=== PATIENT | male | born 2000 | race Caucasian/White ===

== ENCOUNTER 2024-01-03 05:00 | Inpatient (IN) | payer BC, SELFPAY ==
[2024-01-03] VITALS (21 sets, daily range): BP systolic 139–181; BP diastolic 89–123; BMI 31.9
--- NOTE | 2024-01-03 02:06 | ED.GENMED ---
History of Present Illness
<MAT Ortega - Last Filed: 01/03/24 04:50>
General
Chief Complaint: Seizure
Source: patient
Exam Limitations: none
Time Seen by Provider: 01/03/24 02:12
Nursing documentation reviewed up to this point in time: agreed with
Travel History
Have you had any contact with someone who has COVID-19?: No
Do you have any symptoms of coronavirus? Fever > 100 degrees, chills, cough, shortness of breath, sore throat, loss of taste or smell, muscle aches, or headache?: No
History of Present Illness
History of Present Illness:
This is a 23 year old male with history of alcohol abuse, GERD, and seizure presents to the ED with c/o unwitnessed seizure x7 hours. He states he was at work when he lost consciousness and woke up on the floor. He reports striking his head and
presents with a left forehead injury. He also has abrasions on b/l knees. He reports biting his tongue. He admits to mild nausea. Patient reports having his father pick him up from work to drive him home. He consumed a alcoholic beverage (vodka)
before going to bed. He reports his mother found him in bed actively seizing, which is when she called the ambulance. He reports current mild nausea and tremors. He admits drinking 1-2 alcoholic beverage twice weekly. He was seen in September for
similar symptoms and was diagnosed with alcohol withdrawal seizure. He does follow with neurology, who has not started him on seizure medications. The only medication he is currently taking is Labetalol and Vitamin D.
Past History
<MAT Ortega - Last Filed: 01/03/24 04:50>
Past History
ED Past Medical History: GERD, HTN and Seizures
ED Past Surgical History: Orthopedic
Social History
Tobacco: Non-smoker
Alcohol: Binge drinker
Drug: None
Personal: Single
Living: with family
Employment: Employed
Review of Systems
<ST JordanWV - Last Filed: 01/03/24 04:50>
Review of Systems
Allergies reviewed?: Yes
All Other Systems: Not applicable
Constitutional: Reports no symptoms
EENT: Reports no symptoms
Respiratory: Reports no symptoms
Cardiac: Reports no symptoms
ABD/GI: Reports nausea
: Reports no symptoms
Musculoskeletal: Reports no symptoms
Skin: Reports no symptoms
Neurological: Reports other (Tremors)
Endocrine: Reports no symptoms
Hematologic/Lymphatic: Reports no symptoms
Psychiatric: Reports no symptoms
Phy Exam
<ST JordanWV - Last Filed: 01/03/24 04:50>
General Physical Exam
General Presentation: well appearing and no apparent distress
General Skin: warm and dry
General Habitus: normal
General Mental: alert
General Hydration: appears well hydrated
ENT Exam
ENT Exam: EOMI, pharynx normal, neck supple and normocephalic
Eye Exam
Eye Exam: PERRL, cornea clear and conjunctiva normal
Cardiovascular Exam
Cardiovascular Exam: regular rate/rhythm, no edema, no murmur and normal peripheral pulses
Pulmonary Exam
Pulmonary Exam: lungs clear, no respiratory distress, no rales, no crackles, no rhonchi, no stridor, no wheezing and no cough
Gastrointestinal Exam
Gastrointestinal Exam: normal bowel sounds, non tender, soft, no organomegaly, no pulsatile mass and non distended
Neurological Exam
Neurological Exam: alert, oriented x3, no motor deficits, speech normal and other (Tremors)
Musculoskeletal Exam
Musculoskeletal Exam: full ROM and no edema
Skin Exam
Skin Exam: normal color, warm/dry, no rash, no petechia and other (Left forehead abrasion, b/l knee abrasions)
Psychiatric Exam
Psychiatric Exam: normal mood/affect
Scores
<MAT Ortega - Last Filed: 01/03/24 04:50>
Withdrawal Assessment of Alcohol
Withdrawal Assessment Completed?: Not applicable
Nausea and Vomiting: Mild nausea with no vomiting
Tactile Disturbances: None
Tremor: Severe, even with arms not extended
Auditory Disturbances: Not present
Paroxysmal Sweats: No sweat visible
Visual Disturbances: Not present
Anxiety: Mild anxiety
Headache, Fullness in Head: Not present
Agitation: Normal activity
Orientation and clouding of sensorium: Oriented and can do serial additions
Total CIWA Score: 9
Alcohol Withdrawal Medication Recommendation: Equal to MSAS Score 5-7. Lorazepam 1mg IV or PO NOW & re-assess q2hrs
<Thi Dimas DO - Last Filed: 01/03/24 04:20>
Withdrawal Assessment of Alcohol
Total CIWA Score: 9
Alcohol Withdrawal Medication Recommendation: Equal to MSAS Score 5-7. Lorazepam 1mg IV or PO NOW & re-assess q2hrs
Course
<MAT Ortega - Last Filed: 01/03/24 04:50>
Orders/Labs/Results
Orders:
Orders
01/03/24 01:57
Alcohol Urgent
Complete Blood Count/With Diff Urgent
Comprehensive Metabolic Panel Urgent
01/03/24 02:13
Add On- LAB Urgent
Tests Added?: ETOH
01/03/24 02:35
CT Head W/o Iv Contrast Urgent
Comment:
Reason For Exam: seizure, R forehead contusion
Lorazepam [Ativan] 1 mg IV NOW STA
01/03/24 03:00
0.9% Sodium Chloride 1000 ml [Nss] 1,000 ml Mvi, Adult [Multivitamin] 10 ml Thiamine Injection 100 mg IV 250 mls/hr
01/03/24 04:17
Urinalysis Reflex To Culture Urgent
0.9% Sodium Chloride [Nss (Preservative Free)] See Protocol IV PRN PRN
Lorazepam [Ativan] 1 mg IV Q1HPRN PRN
Lorazepam [Ativan] 1 mg PO Q2HPRN PRN
Lorazepam [Ativan] 2 mg IV Q1HPRN PRN
01/03/24 04:29
Admit/Transfer Patient As Directed
Co-Sign Provider:
Level of Care: Inpatient admission
Assign to:: IMU- Intermediate Care
Physician / Group: ellyn
Diagnosis: alcohol withdrawal seizure
Reason for Hospitalization: alcohol withdrawal seizure
Expected length of stay greater than two midnights?: Yes
ELOS- Estimated Length of Stay in days: 2
I certify the patient meets the requirements for IP care: Yes
01/03/24 04:30
Code Status As Directed
Resuscitation Status: Full Code
01/03/24 04:31
Magnesium Urgent
PTT Urgent
Phosphorus Urgent
Prothrombin Time Urgent
0.9% Sodium Chloride [Nss (Preservative Free)] See Protocol IV PRN PRN
FOLic ACID [Folvite] 1 mg 0.9% Sodium Chloride 50 ml [Nss] 50 ml IV DAILYPRN
Lorazepam [Ativan] 1 mg IV Q1HPRN PRN
Lorazepam [Ativan] 1 mg PO Q2HPRN PRN
Lorazepam [Ativan] 2 mg IV Q1HPRN PRN
01/03/24 04:32
Urine Drug Abuse Screen Routine
MSAS SCORE As Directed
MSAS Score 0-4: Repeat MSAS every 2 hours until 0-4 for three consecutive assessments, then every 4 hours x 48
hours.
MSAS Score 5-7: For MILD withdrawl symptoms. Repeat MSAS and RASS every 2 hours
MSAS Score 8-11: For MODERATE withdrawal symptoms. Repeat MSAS and RASS every 1 hour. Consider ICU or IMU
level of care.
MSAS Score > 11: For SEVERE withdrawal symptoms. Repeat MSAS and RASS every 1 hour. Notify provider, consider
ICU level of care.
MSAS Additional Instructions: If no improvement or no decrease in score from severe to moderate within 12
hours, consult psychiatry
MSAS Notify Provider: Notify provider if patient requires more than 10 mg of Lorazepam in eight hour period.
01/03/24 04:34
Potassium Chloride [KCl] 40 meq PO NOW STA
01/03/24 05:00
Flush (0.9% Sodium Chloride) [Flush (Nss)] See Dose Instructions IV PER PROTOCOL
Phenobarbital Sodium [Phenobarbital] 260 mg 0.9% Sodium Chloride 100 ml [Nss] 100 ml IV ONCE
01/03/24 08:00
FOLic ACID [Folvite] 1 mg PO DAILY
Thiamine Injection 200 mg IV Q12
01/03/24 16:00
Phenobarbital Sodium [Phenobarbital] 97.5 mg IV TID
01/05/24 16:00
Phenobarbital [Luminal] 64.8 mg PO TID
01/06/24 08:00
Thiamine HCl [Vitamin B1] 100 mg PO BID
01/06/24 11:00
DC Protocol for Telemetry ONCE
01/07/24 16:00
Phenobarbital [Luminal] 32.4 mg PO TID
Abnormal Lab Results
01/03/24
01:57
RBC 3.90 L 10^6/uL
(4.70-6.10)
Hct 36.6 L %
(39.0-52.0)
MCH 33.8 H pg
(27.0-31.0)
Absolute Lymphs (auto) 0.9 L 10^3/uL
(1.2-3.4)
Absolute Monos (auto) 1.1 H 10^3/uL
(0.1-0.6)
Lymphocytes % 12.1 L %
(20.5-51.1)
Monocytes % 14.7 H %
(1.7-9.3)
Sodium 134 L mmol/L
(135-145)
Potassium 3.0 L mmol/L
(3.5-5.1)
Carbon Dioxide 19 L mmol/L
(22-30)
BUN 6 L mg/dl
(9-20)
Glucose 126 H mg/dl
(70-99)
Total Bilirubin 2.1 H mg/dl
(0.2-1.3)
AST 334 H U/L
(17-59)
ALT 177 H U/L
(0-50)
Total Protein 6.0 L g/dl
(6.3-8.2)
01/03/24 01:57
01/03/24 01:57
Vital Signs
Initial and Last Documented VS:
Initial Vital Signs
BP
153/97
01/03/24 01:56
Last Documented Vital Signs
Temp Pulse Resp BP Pulse Ox
99.7 F 94 28 152/110 94
01/03/24 01:57 01/03/24 04:00 01/03/24 04:00 01/03/24 04:00 01/03/24 04:00
<Thi Dimas, DO - Last Filed: 01/03/24 04:20>
Orders/Labs/Results
Orders:
Orders
01/03/24 01:57
Alcohol Urgent
Complete Blood Count/With Diff Urgent
Comprehensive Metabolic Panel Urgent
01/03/24 02:13
Add On- LAB Urgent
Tests Added?: ETOH
01/03/24 02:35
CT Head W/o Iv Contrast Urgent
Comment:
Reason For Exam: seizure, R forehead contusion
Lorazepam [Ativan] 1 mg IV NOW STA
01/03/24 03:00
0.9% Sodium Chloride 1000 ml [Nss] 1,000 ml Mvi, Adult [Multivitamin] 10 ml Thiamine Injection 100 mg IV 250 mls/hr
01/03/24 04:17
Urinalysis Reflex To Culture Urgent
0.9% Sodium Chloride [Nss (Preservative Free)] See Protocol IV PRN PRN
Lorazepam [Ativan] 1 mg IV Q1HPRN PRN
Lorazepam [Ativan] 1 mg PO Q2HPRN PRN
Lorazepam [Ativan] 2 mg IV Q1HPRN PRN
01/03/24 04:29
Admit/Transfer Patient As Directed
Co-Sign Provider:
Level of Care: Inpatient admission
Assign to:: IMU- Intermediate Care
Physician / Group: elyln
Diagnosis: alcohol withdrawal seizure
Reason for Hospitalization: alcohol withdrawal seizure
Expected length of stay greater than two midnights?: Yes
ELOS- Estimated Length of Stay in days: 2
I certify the patient meets the requirements for IP care: Yes
01/03/24 04:30
Code Status As Directed
Resuscitation Status: Full Code
01/03/24 04:31
Magnesium Urgent
PTT Urgent
Phosphorus Urgent
Prothrombin Time Urgent
0.9% Sodium Chloride [Nss (Preservative Free)] See Protocol IV PRN PRN
FOLic ACID [Folvite] 1 mg 0.9% Sodium Chloride 50 ml [Nss] 50 ml IV DAILYPRN
Lorazepam [Ativan] 1 mg IV Q1HPRN PRN
Lorazepam [Ativan] 1 mg PO Q2HPRN PRN
Lorazepam [Ativan] 2 mg IV Q1HPRN PRN
01/03/24 04:32
Urine Drug Abuse Screen Routine
MSAS SCORE As Directed
MSAS Score 0-4: Repeat MSAS every 2 hours until 0-4 for three consecutive assessments, then every 4 hours x 48
hours.
MSAS Score 5-7: For MILD withdrawl symptoms. Repeat MSAS and RASS every 2 hours
MSAS Score 8-11: For MODERATE withdrawal symptoms. Repeat MSAS and RASS every 1 hour. Consider ICU or IMU
level of care.
MSAS Score > 11: For SEVERE withdrawal symptoms. Repeat MSAS and RASS every 1 hour. Notify provider, consider
ICU level of care.
MSAS Additional Instructions: If no improvement or no decrease in score from severe to moderate within 12
hours, consult psychiatry
MSAS Notify Provider: Notify provider if patient requires more than 10 mg of Lorazepam in eight hour period.
01/03/24 04:34
Potassium Chloride [KCl] 40 meq PO NOW STA
01/03/24 05:00
Flush (0.9% Sodium Chloride) [Flush (Nss)] See Dose Instructions IV PER PROTOCOL
Phenobarbital Sodium [Phenobarbital] 260 mg 0.9% Sodium Chloride 100 ml [Nss] 100 ml IV ONCE
01/03/24 08:00
FOLic ACID [Folvite] 1 mg PO DAILY
Thiamine Injection 200 mg IV Q12
01/03/24 16:00
Phenobarbital Sodium [Phenobarbital] 97.5 mg IV TID
01/05/24 16:00
Phenobarbital [Luminal] 64.8 mg PO TID
01/06/24 08:00
Thiamine HCl [Vitamin B1] 100 mg PO BID
01/06/24 11:00
DC Protocol for Telemetry ONCE
01/07/24 16:00
Phenobarbital [Luminal] 32.4 mg PO TID
Abnormal Lab Results
01/03/24
01:57
RBC 3.90 L 10^6/uL
(4.70-6.10)
Hct 36.6 L %
(39.0-52.0)
MCH 33.8 H pg
(27.0-31.0)
Absolute Lymphs (auto) 0.9 L 10^3/uL
(1.2-3.4)
Absolute Monos (auto) 1.1 H 10^3/uL
(0.1-0.6)
Lymphocytes % 12.1 L %
(20.5-51.1)
Monocytes % 14.7 H %
(1.7-9.3)
Sodium 134 L mmol/L
(135-145)
Potassium 3.0 L mmol/L
(3.5-5.1)
Carbon Dioxide 19 L mmol/L
(22-30)
BUN 6 L mg/dl
(9-20)
Glucose 126 H mg/dl
(70-99)
Total Bilirubin 2.1 H mg/dl
(0.2-1.3)
AST 334 H U/L
(17-59)
ALT 177 H U/L
(0-50)
Total Protein 6.0 L g/dl
(6.3-8.2)
01/03/24 01:57
01/03/24 01:57
Vital Signs
Initial and Last Documented VS:
Initial Vital Signs
BP
153/97
01/03/24 01:56
Last Documented Vital Signs
Temp Pulse Resp BP Pulse Ox
99.7 F 94 28 152/110 94
01/03/24 01:57 01/03/24 04:00 01/03/24 04:00 01/03/24 04:00 01/03/24 04:00
<MAT Ortega - Last Filed: 01/03/24 04:50>
MDM/Problems Addressed
Differential Diagnosis Includes:
Alcohol withdrawal seizure, vasovagal syncope, electrolyte disturbance, arrhythmia
Vasovagal syncope considered, however patient has a history of seizures. Electrolyte disturbance and arrhythmia considered, however less likely due to history of alcohol withdrawal seizure.
<Thi Dimas DO - Last Filed: 01/03/24 04:20>
*Radiology
Radiology exam reviewed: radiology read reviewed (CT of the head is unremarkable. No acute intracranial traumatic findings.)
*Pulse Oximetry
Patient hypoxic: no
*Liquor Tester Interpretation
Rate: normal
Interpretation: normal
Rhythm: sinus
*Critical Care Note
Total Time (30-74mins, 75-104mins- exclusive of procedures): Not Applicable
ED Attending Note
<MAT Ortega - Last Filed: 01/03/24 04:50>
-
Portions of this chart may have been created with voice recognition software.� Occasional wrong word or��sound alike� substitutions may have occurred due to the inherent limitations of voice recognition software.
<Thi Dimas DO - Last Filed: 01/03/24 04:20>
ED Attending Note
Patient seen and examined by attending physician: Yes
I performed the substantive portion of visit, reviewed & personally made and approve the management plan that is documented in note by myself or ROSA.: Yes
I performed a history and physical exam of patient and discussed management with resident, I reviewed resident's note and agree with documented findings and plan of care.: Yes
ED Attending Note:
This is a 23-year-old gentleman who has history of alcohol abuse, admits to sporadic binge drinking and more recently has been attempting to cut down. He has prior history of alcohol withdrawal seizures with previous hospitalizations here September
2023 as well as May 2023 for alcohol withdrawal seizures. On both occasions recommended to inpatient alcohol rehab which he declined.
He continues to work at [employer] and while at work yesterday he admits to probable unwitnessed seizure where he awoke on the floor and suffered a contusion to his right forehead as well as abrasions to bilateral anterior knees. He denies
incontinence of bowel nor bladder but admits to abrasion to his left lateral tongue. He was able to call his father and was driven home from work.
Tonight while sleeping his mom was alerted by the dog barking and upon further investigation apparently found the patient seizing in his bed versus postictal. She called 911.
Upon EMS arrival patient awake and alert, mildly tremulous but no seizure activity.
He admits to right forehead contusion but denies headache, no nausea nor vomiting. Currently thirsty.
He denies neck nor back pain.
He denies chest pain or coughing or shortness of breath, denies abdominal pain, no dizziness nor lightheadedness. He does admit to feeling mildly shaky.
He does admit to intermittent alcohol consumption and has been attempting to cut down. He denies drug use.
GENERAL: 23-year-old gentleman appears his stated age, awake and alert, mildly anxious but easily communicative.
EYE: pupils equal and reactive. anicteric. There is an abrasion and soft tissue contusion right forehead.
NECK: Supple, nontender, full range of motion without difficulty nor pain, no significant adenopathy.
ENT: posterior pharynx is clear, oral mucosa is moist. Superficial abrasion left lateral tongue. No bleeding. TM clear b/l, nares patent.
CARDIAC: Regular rate and rhythm. no murmur.
LUNGS: Clear breath sounds bilaterally, no acute respiratory distress, no wheezes/rales/rhonchi
ABDOMEN: Soft, nondistended, without focal tenderness, normoactive BS.
NEUROLOGICAL: Alert and oriented x3, no focal neuro deficits. Motor strength is 5/5 bilaterally. Gross sensation is intact. Mild intention tremor of upper extremities.
SKIN: Warm and dry, normal color, right forehead abrasion/contusion. There are very superficial abrasions noted bilateral anterior knees.
MUSCULOSKELETAL: No C/C/E. peripheral pulses are full and equal b/l. No palpable tenderness.
PSYCH: Normal and appropriate interaction.
History and exam quite concerning for alcohol withdrawal seizure.
Noted to be mildly anxious, mildly tremulous with CIWA score of 9. Will give an IV dose of Ativan now.
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
Due to forehead contusion/abrasion, concern for closed head injury, will check CT of the head.
Due to prior history of alcohol withdrawal seizures, concern for impending DTs, concern for recurrent seizure patient will require acute hospitalization for continued close monitoring and treatment of alcohol withdrawal.
Discharge Plan
Departure
Patient Disposition: Admit
Date of Disposition: 01/03/24
Time of Disposition: 04:03
Admit to: IMU
Admit to doctor: Helen
Presentation/result/management discussed w/ accepting MD/DO: Hospitalist
Condition: Serious
Discharge Problem:
Alcohol withdrawal seizure, Forehead contusion, ETOH abuse, bilateral knee contusions
Prescriptions:
No Action
zinc sulfate 50 mg zinc (220 mg) Tablet
50 mg PO DAILY
olmesartan [Benicar] 40 mg Tablet
40 mg PO DAILY
cholecalciferol (vitamin D3) [Vitamin D3] 25 mcg (1,000 unit) Tablet
25 mcg PO DAILY
magnesium oxide 400 mg magnesium Tablet
400 mg PO DAILY
folic acid 1 mg Tablet
1 mg PO DAILY Qty: 20 0RF
thiamine HCl (vitamin B1) 100 mg Tablet
100 mg PO BID Qty: 60 0RF
phenobarbital 32.4 mg Tablet
64.8 mg PO TID Qty: 6 0RF
phenobarbital 32.4 mg Tablet
32.4 mg PO TID Qty: 6 0RF
labetalol 200 mg tablet
200 mg PO Daily
Referrals:
Medardo Arreaga MD [Family Provider] -
Interventions
Interventions:
*Risk Screen - Suicide Last Done: 01/03/24 01:57
*General Assessment Last Done: 01/03/24 01:57
*Neglect/Abuse Screening Last Done: 01/03/24 01:57
ED- Fall Risk Assessment Last Done: 01/03/24 02:18
*ED COVID-19 Vaccine History Last Done: 01/03/24 01:57
ED- Cardiac Assessment Last Done: 01/03/24 02:18
ED- Neurological Assessment Last Done: 01/03/24 02:18
ED- Pulmonary Assessment Last Done: 01/03/24 02:18
Discharge Date and Time
Print Language: NAURUAN
[2024-01-03 02:08] LABS: % Basophils 0.8 % (0-2); % Immature Granulocytes 0.3 % (0-0.5); % Lymphocytes 12.1 % (20.5-51.1); % Monocytes 14.7 % (1.7-9.3); % Neutrophils 72.1 % (42.2-75.2); Absolute Basophils 0.1 10^3/uL (0-0.2); Absolute Lymphocytes 0.9 10^3/uL (1.2-3.4); Absolute Monocytes 1.1 10^3/uL (0.1-0.6); Absolute Neutrophils 5.1 10^3/uL (1.4-6.5); Hematocrit 36.6 % (39.0-52.0); Hemoglobin 13.2 g/dL (13.0-18.0); Mean Corp Hgb Conc. 36.1 g/dL (33.0-37.0); Mean Corpuscular Hgb 33.8 pg (27.0-31.0); Mean Corpuscular Volume 93.8 fL (80.0-94.0); Mean Platelet Volume 9.6 fL (7.4-10.4); Nucleated Red Blood Cells % 0 % (-); Platelet Count 183 10^3/uL (130-400); Red Cell Dist. Width 12.9 % (11.5-14.5); White Blood Cell Count 7.1 10^3/uL (4.8-10.8)
[2024-01-03 02:33] LABS: ALT (SGPT) 177 U/L (0-50); AST (SGOT) 334 U/L (17-59); Albumin 3.5 g/dl (3.5-5.0); Alcohol 38 mg/dl; Alkaline Phosphatase 115 U/L (38-126); Blood Urea Nitrogen 6 mg/dl (9-20); Calcium 8.6 mg/dl (8.4-10.2); Carbon Dioxide 19 mmol/L (22-30); Chloride 99 mmol/L (98-107); Estimated Creatinine Clearance > 125 ml/min; Glucose 126 mg/dl (70-99); Sodium 134 mmol/L (135-145); Total Bilirubin 2.1 mg/dl (0.2-1.3); eGFR > 60.00
[2024-01-03] MEDS: ATIVAN 1 MG IV ×6 (02:39→19:43)
[2024-01-03] MEDS: MULTIVITAMIN 1011 MG IV (03:41)
[2024-01-03] MEDS: MULTIVITAMIN 1011 ML IV (03:41)
--- NOTE | 2024-01-03 04:34 | HPS.HSE ---
Family Physician
-
Family Physician: Medardo Arreaga
Chief Complaint
-
seizure
History of Present Illness
23-year-old male past medical history of seizure disorder, hypertension, GERD, alcohol use disorder, presenting with a syncopal episode while he was walking outside while at work. Episode lasted a few seconds he was noticed to have fallen but no
seizure to be noted. He did hit his head and has left forehead injury and abrasions of bilateral knees. He did bite his tongue. He does have some nausea. His father picked him up from work to drive him home. He thinks he was very dehydrated at
work today.
At night he was noted to be acting weird in bed and his dog notified his mom who found him to be passed out for few seconds with tremors of the body.
Patient used to drink significant amount of alcohol but since he was admitted in September for alcohol withdrawal seizures he has cut down significantly. Specifically over the past month he has cut down a lot more and drinking 1-2 drinks 2-3 times
per week. His last drink was this afternoon after coming home from work. He drinks vodka tonic. He denies smoking or any other drugs.
Denies headache. Did have some numbness of lower extremities. Denies vertigo.
Medical History
Past Medical History
Past Medical History: Reports Other (seizure disorder, hypertension, GERD, alcohol use disorder,)
Past Surgical History: Reports None
Social History
Tobacco: Non-smoker
Alcohol: Occasional
Drug: None
Family History
Family History: Not pertinent
Allergies / Home Medications
Allergies reflects when Allergies were last updated in [facility].
Home Medications with original date entered in [facility]
Allergy/Medication List:
Allergies
Allergy/AdvReac Type Severity Reaction Status Date / Time
No Known Allergies Allergy Verified 01/03/24 01:55
Home Medications
cholecalciferol (vitamin D3) 25 mcg (1,000 unit) tablet (Vitamin D3) 25 mcg PO DAILY Supplement 09/19/23
magnesium oxide 400 mg PO DAILY Electrolyte Repletion 09/19/23
olmesartan 40 mg tablet (Benicar) 40 mg PO DAILY Blood Pressure 09/19/23
zinc sulfate 50 mg zinc (220 mg) tablet 50 mg PO DAILY Supplement 09/19/23
folic acid 1 mg tablet 1 mg PO DAILY #20 tabs 09/21/23
phenobarbital 32.4 mg tablet 32.4 mg PO TID #6 tabs 09/21/23
phenobarbital 32.4 mg tablet 64.8 mg (2 x 32.4 mg) PO TID #6 tabs 09/21/23
thiamine HCl (vitamin B1) 100 mg tablet 100 mg PO BID #60 tabs 09/21/23
labetalol 200 mg tablet 200 mg PO Daily 01/03/24
Review of Systems
-
History Source: Patient
A 12 point ROS was completed and negative except as noted: Yes
Constitutional: Reports No Symptoms
EENT: Reports No Symptoms
Respiratory: Reports No Symptoms
Cardiac: Reports No Symptoms
Abdomen/GI: Reports No Symptoms
: Reports No Symptoms
Musculoskeletal: Reports No Symptoms
Skin: Reports No Symptoms
Neurological: Reports No Symptoms
Endocrine: Reports No Symptoms
Hematologic/Lymphatic: Reports No Symptoms
Psych: Reports No Symptoms
Physical Exam
Vital Signs
Vital Signs
Temp Pulse Resp BP Pulse Ox
99.7 F 94 28 152/110 94
01/03/24 01:57 01/03/24 04:00 01/03/24 04:00 01/03/24 04:00 01/03/24 04:00
Physical Exam
General: Well Developed, Well Nourished and No Apparent Distress
HEENT: NormoCephalic, Moist mucous membranes and Atraumatic
Respiratory: Clear
Cardiac: S1/S2 and Regular Rhythm; No Murmur or Rub
GI: Soft, Non Tender, Non Distended and Normal Bowel Sounds; No Organomegaly
Rectal: Deferred by Provider
Musculoskeletal: No Clubbing, No Cyanosis and No Edema
Skin: No Rash
Neuro: Nonfocal/grossly intact and Tremors
Laboratory Results
-
01/03/24 01:57
01/03/24 01:57
Laboratory Results
Total Bilirubin 2.1 mg/dl (0.2-1.3) H 01/03/24 01:57
AST 334 U/L (17-59) H 01/03/24 01:57
ALT 177 U/L (0-50) H 01/03/24 01:57
Alkaline Phosphatase 115 U/L (38-126) 01/03/24 01:57
Data Reviewed
-
Lab Data: Labs Reviewed by me
Old Records: Reviewed
Impression/Plan
-
IMPRESSION:
PLAN:
# Alcohol withdrawal seizure
# History of alcohol withdrawal seizures
-CT head shows no acute abnormality
-Alcohol level 38
-Alcohol withdrawal protocol
-Phenobarbital protocol
-IV fluids
-Thiamine and folate
# Hypokalemia
-Replete potassium
-Check magnesium
# Transaminitis secondary to alcohol use
-Continue to monitor
Essential hypertension
-Continue labetalol, olmesartan
GERD
Full code
DVT prophylaxis�heparin
Regular diet
[2024-01-03 04:56] LABS: Magnesium 0.7 mg/dl (1.6-2.3); Phosphorus 2.1 mg/dl (2.5-4.5)
[2024-01-03 04:58] LABS: INR 1.24; PT 15.6 Sec (11.4-14.6)
[2024-01-03] MEDS: PHENOBARBITAL 104 MG IV (04:58)
[2024-01-03] MEDS: KCL 40 MEQ PO (05:06)
[2024-01-03] MEDS: NSS 1000 IV (06:19)
[2024-01-03] MEDS: MAGNESIUM SULFATE 50 IV (06:19)
[2024-01-03 06:39] LABS: % Basophils 0.5 % (0-2); % Eosinophils 2.6 % (0-6); % Immature Granulocytes 0.5 % (0-0.5); % Lymphocytes 11.8 % (20.5-51.1); % Monocytes 13.7 % (1.7-9.3); % Neutrophils 70.9 % (42.2-75.2); Absolute Eosinophils 0.2 10^3/uL (0-0.7); Absolute Lymphocytes 0.7 10^3/uL (1.2-3.4); Absolute Monocytes 0.8 10^3/uL (0.1-0.6); Hematocrit 38.2 % (39.0-52.0); Hemoglobin 13.7 g/dL (13.0-18.0); Mean Corp Hgb Conc. 35.9 g/dL (33.0-37.0); Mean Corpuscular Hgb 34.6 pg (27.0-31.0); Mean Corpuscular Volume 96.5 fL (80.0-94.0); Mean Platelet Volume 10.2 fL (7.4-10.4); Nucleated Red Blood Cells % 0 % (-); Platelet Count 155 10^3/uL (130-400); Red Blood Cell Count 3.96 10^6/uL (4.70-6.10); Red Cell Dist. Width 12.8 % (11.5-14.5); White Blood Cell Count 5.7 10^3/uL (4.8-10.8)
[2024-01-03 07:20] LABS: ALT (SGPT) 179 U/L (0-50); AST (SGOT) 311 U/L (17-59); Albumin 3.5 g/dl (3.5-5.0); Alkaline Phosphatase 119 U/L (38-126); Blood Urea Nitrogen 7 mg/dl (9-20); Calcium 8.8 mg/dl (8.4-10.2); Carbon Dioxide 27 mmol/L (22-30); Chloride 98 mmol/L (98-107); Estimated Creatinine Clearance > 125 ml/min; Glucose 98 mg/dl (70-99); Potassium 2.9 mmol/L (3.5-5.1); Sodium 133 mmol/L (135-145); Total Bilirubin 3.2 mg/dl (0.2-1.3); Total Protein 6.1 g/dl (6.3-8.2); eGFR > 60.00
[2024-01-03] MEDS: FOLVITE 1 MG PO (08:00)
[2024-01-03] MEDS: VITAMIN D3 (cholecalciferol) 25 MCG PO (08:00)
[2024-01-03] MEDS: MAGNESIUM OXIDE 500 MG PO (08:00)
[2024-01-03] MEDS: HEPARIN 5000 UNITS SC ×2 (08:01→19:44)
[2024-01-03] MEDS: THIAMINE INJECTION IV (08:01)
[2024-01-03] MEDS: BENICAR 40 MG PO (08:59)
[2024-01-03] MEDS: TRANDATE 200 MG PO (09:07)
--- NOTE | 2024-01-03 12:14 | W.PN.HOSP.TC ---
Today's Communication/Plan
-
See plan
Assessment / Plan
Assessment / Plan
Impression:
Alcohol withdrawal seizures.
Alcohol use disorder severe.
Alcohol withdrawal syndrome.
Severe hypokalemia
Hypomagnesemia
Abnormal LFTs suspect secondary to hepatic alcohol injury.
Essential hypertension.
GERD.
Plan
Alcohol withdrawal seizure
Severe alcohol use disorder with impending DT.
CT scan of the head shows no acute abnormalities
Alcohol level presentation 38
Continue seizure precautions.
Alcohol withdrawal protocol with lorazepam.
Phenobarbital.
Thiamine.
Neurology consultation
Hypokalemia
Hypomagnesemia
Continue IV fluids with potassium and magnesium supplements
Follow BMP
Abnormal LFTs secondary to hepatic alcohol injury.
Monitor.
Essential hypertension
Continue preadmission regimen with labetalol and olmesartan. Monitor blood pressure trend.
Anticipated Discharge: > 48 hours
Subjective/Interval History
-
Date of Service: January 03, 2024
Objective Data
-
Labs:
Laboratory Results
01/03/24 01/03/24 01/03/24
01:57 04:31 06:21
WBC 7.1 5.7
Hgb 13.2 13.7
Hct 36.6 L 38.2 L
Plt Count 183 155
PT 15.6 H
INR 1.24
APTT 26.0
Sodium 134 L 133 L
Potassium 3.0 L 2.9 L
Chloride 99 98
Carbon Dioxide 19 L 27
BUN 6 L 7 L
Creatinine 0.8 0.7
Glucose 126 H 98
Calcium 8.6 8.8
Total Bilirubin 2.1 H 3.2 H D
AST 334 H 311 H
ALT 177 H 179 H
Alkaline Phosphatase 115 119
Vital Signs:
Vital Signs
Temp Pulse Resp BP Pulse Ox
98.5 F 97 19 166/123 98
01/03/24 08:51 01/03/24 09:07 01/03/24 06:30 01/03/24 09:07 01/03/24 06:30
Physical Exam
-
General: Well Developed and No Apparent Distress
HEENT: Normocephalic, Atraumatic and Moist Mucous Membranes
Respiratory: Clear to Auscultation
Cardiac: Regular Rhythm and S1/S2; Negative Murmur, Rub or Gallop
GI: Soft, Nontender, Nondistended and Normal Bowel Sounds; Negative Organomegaly
Rectal: Deferred by Provider
Musculoskeletal: No Clubbing, No Cyanosis and No Edema
Skin: Negative Rash
Neuro: Awake, Alert, Oriented, Tremors and Nonfocal/Grossly Intact
[2024-01-03] MEDS: KCL 1024 GRAMS IV (12:24)
[2024-01-03] MEDS: KCL 1024 MEQ IV (12:24)
--- NOTE | 2024-01-03 13:02 | CON.NEURO4 ---
Consultation - Neurology 4
-
CONSULTING PHYSICIAN: Ainsley Manzano
REFERRING PHYSICIAN: Hospitalist Dr Segal
DICTATED BY: Ainsley Manzano
DATE/TIME OF REQUEST: 01/03/24
DATE/TIME OF CONSULTATION: 01/03/24
Reason for Consultation: Seizure, alcohol withdrawal, history of seizures
History of Present Illness:
Patient is a 23 year old man with history of alcohol use disorder, alcohol withdrawal seizures who had had loss of consciousness episode yesterday while at work and was also found to have convulsions by his mother concerning for seizure activity.
Since then has developed tremor and some diaphoresis and has been being treated for alcohol withdrawal with PRN lorazepam, phenobarbital taper, IV thiamine and folate.
Patient can remember having had a loss of consciousness episode while at work while walking outside that seemed to be short lasting, seemed to bite his tongue and had right forehead abrasion and abrasions of legs bilaterally. He had just started a
new job. No other large stressors or recent illnesses. He returned home and had some confusion and odd behaviors, his mother had found him in bed with unconsciousness and less than 1 minute of convulsive activity.
Had had hospitalization in May 2023 with what was felt to be syncope versus alcohol withdrawal seizure, was given Levetiracetam but stopped due to agitation that was suspected in part due to Levetiracetam. EEG at that time showed excess beta
activity due to benzodiazepines. Had an admission in September 2023 after some seizure activity while at work and was treated for alcohol withdrawal during that stay, no chronic antiseizure medications started.
Past Medical History: Alcohol withdrawal seizures, alcohol use disorder, hypertension, GERD, obesity
Surgical History: None
Family History: No family history of seizures
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
sometimes up to a 5th of vodka
Allergies: No known drug allergies
Review of Symptoms:
Patient denies any fever, headache, chest pain, shortness of breath, GI or symptoms.
Physical Exam:
Young man, right forehead abrasion, eyes clear, oropharynx with no clear lacerations or bleeding, neck with no masses full range of motion of the neck, heart rate regular, breathing unlabored, abdomen obese, soft, non-tender, no lower extremity edema
Neurologic Examination:
Mental Status shows fully awake and alert patient, full orientation, normal attention, obeys complex and multistep commands, speech is fluent, naming and repetition intact, praxis normal, insight is fair, good historian
CN: Pupils 4mm equal round and reactive to light bilaterally, resting gaze mildline and extra ocular movements are full, visual marina full, smile symmetric, no dysarthria
Motor: Resting and postural tremor evident in the hands bilaterally, strength is 5/5 for shoulder abduction arm flexion ostomy care nurse strength is good and hip flexion 5/5 bilaterally
Sensory: Intact light touch upper and lower extremities in symmetric manner
Reflexes: 2+ symmetric biceps triceps brachioradialis patella and achilles
Coordination: No ataxia on finger to nose bilaterally
Gait: Deferred
Impressions
1. Likely 1-2 alcohol withdrawal seizures. Do not feel the patient has epilepsy
2. Presumed alcohol withdrawal with tremor, diaphoresis, elevated LFT's
3. Right forehead abrasion. Reassuring CT head non contrast.
4. Reassuring mental status currently
Recommendations:
1. With good mental status currently and high suspicion of alcohol withdrawal seizures not seeing indication for EEG or meterman antiseizure medications
2. Continue Phenobarbital and PRN Lorazepam for alcohol withdrawal symptoms
3. Continue IV thiamine and folate
4. Monitor neurologic exam and clinically for seizures which would be treated with IV Lorazepam
5. No indications for further brain imaging at this time
6. Follow electrolytes
Will follow peripherally call with questions and concerns
Discussed patient care with: Patient and Dr Segal
[2024-01-03] MEDS: PHENOBARBITAL 97.5 MG IV ×2 (15:09→21:44)
[2024-01-03] MEDS: ATIVAN 2 MG IV ×2 (15:11→17:55)
[2024-01-03 15:40] LABS: Urine Albumin Trace (Neg - Trace); Urine Bilirubin Negative (Negative); Urine Character Clear (Clear); Urine Color Yellow; Urine Glucose Negative (Negative); Urine Ketone Negative (Negative); Urine Leukocyte Negative (Negative); Urine Nitrite Negative (Negative); Urine Occult Blood 1+ (Negative); Urine Urobilinogen 2+ (Neg - 1+)
[2024-01-03 15:53] LABS: Urine Squamous Cell 0-2 /LPF (Few); Urine White Cell None Seen /HPF (0-5)
[2024-01-03 16:27] LABS: Amphetamines Negative (Negative); Barbiturates Positive (Negative); Benzodiazepines Positive (Negative); Buprenorphine Negative (Negative); Cocaine Negative (Negative); Marijuana Negative (Negative); Methadone Negative (Negative); Methamphetamines Negative (Negative); Opiates Negative (Negative); Phencyclidine Negative (Negative); Tricyclic Antidepressants Negative (Negative)
[2024-01-03 16:37] LABS: Fentanyl, Urine Negative (Negative)
--- NOTE | 2024-01-03 18:01 | PTCARENOTE ---
Patient continues with MSAS of 8 and above, Ativan PRN given. Patient BP elevated 150's over 100's. MD Segal made aware no new orders at this time other than continue to 'observe'. Patient denies any CP/PALP at this time.
[2024-01-03 18:55] LABS: Blood Urea Nitrogen 5 mg/dl (9-20); Calcium 7.9 mg/dl (8.4-10.2); Carbon Dioxide 27 mmol/L (22-30); Chloride 99 mmol/L (98-107); Estimated Creatinine Clearance > 125 ml/min; Glucose 111 mg/dl (70-99); Potassium 2.8 mmol/L (3.5-5.1); Sodium 132 mmol/L (135-145); eGFR > 60.00
[2024-01-03] MEDS: THIAMINE INJECTION 200 MG IV (19:43)
[2024-01-03] MEDS: NSS (PRESERVATIVE FREE) 0.5 ML IV (19:43)
[2024-01-04] VITALS (13 sets, daily range): BP systolic 129–164; BP diastolic 90–128
--- NOTE | 2024-01-04 | PTCARENOTE ---
Pt MSAS 8 at change of shift. 1 mg Ativan IV given per protocol (see MAR). Pt denies any hallucinations. Tremulous and slightly diaphoretic. ST on the monitor. Very cooperative. Resting in bed with call ambriz in reach.
[2024-01-04] MEDS: KCL 1024 MEQ IV (01:11)
[2024-01-04] MEDS: KCL 1024 GRAMS IV (01:11)
[2024-01-04 04:36] LABS: % Basophils 1.2 % (0-2); % Eosinophils 1.2 % (0-6); % Immature Granulocytes 0.3 % (0-0.5); % Lymphocytes 26.1 % (20.5-51.1); % Monocytes 13.9 % (1.7-9.3); % Neutrophils 57.3 % (42.2-75.2); Absolute Lymphocytes 0.9 10^3/uL (1.2-3.4); Absolute Monocytes 0.5 10^3/uL (0.1-0.6); Absolute Neutrophils 1.9 10^3/uL (1.4-6.5); Hematocrit 37.7 % (39.0-52.0); Hemoglobin 12.9 g/dL (13.0-18.0); Mean Corp Hgb Conc. 34.2 g/dL (33.0-37.0); Mean Corpuscular Hgb 33.9 pg (27.0-31.0); Mean Platelet Volume 10.1 fL (7.4-10.4); Nucleated Red Blood Cells % 0 % (-); Platelet Count 136 10^3/uL (130-400); Red Blood Cell Count 3.81 10^6/uL (4.70-6.10); Red Cell Dist. Width 12.4 % (11.5-14.5); White Blood Cell Count 3.4 10^3/uL (4.8-10.8)
[2024-01-04 05:54] LABS: ALT (SGPT) 147 U/L (0-50); AST (SGOT) 207 U/L (17-59); Albumin 3.3 g/dl (3.5-5.0); Alkaline Phosphatase 113 U/L (38-126); Blood Urea Nitrogen 3 mg/dl (9-20); Calcium 7.8 mg/dl (8.4-10.2); Carbon Dioxide 28 mmol/L (22-30); Chloride 101 mmol/L (98-107); Direct Bilirubin 2.5 mg/dl (0.0-0.4); Estimated Creatinine Clearance > 125 ml/min; Glucose 100 mg/dl (70-99); Magnesium 1.7 mg/dl (1.6-2.3); Potassium 3.7 mmol/L (3.5-5.1); Sodium 132 mmol/L (135-145); Total Bilirubin 3.7 mg/dl (0.2-1.3); Total Protein 5.8 g/dl (6.3-8.2); eGFR > 60.00
[2024-01-04] MEDS: BENICAR 40 MG PO (07:59)
[2024-01-04] MEDS: MAGNESIUM OXIDE 500 MG PO (08:00)
[2024-01-04] MEDS: PHENOBARBITAL 97.5 MG IV ×3 (08:00→22:21)
[2024-01-04] MEDS: TRANDATE 200 MG PO (08:00)
[2024-01-04] MEDS: VITAMIN D3 (cholecalciferol) 25 MCG PO (08:00)
[2024-01-04] MEDS: FOLVITE 1 MG PO (08:00)
[2024-01-04] MEDS: HEPARIN 5000 UNITS SC (08:02)
[2024-01-04] MEDS: THIAMINE INJECTION 200 MG IV ×2 (08:04→19:50)
[2024-01-04] MEDS: KCL IV ×2 (10:07)
[2024-01-04] MEDS: KCL 1012 GRAMS IV ×2 (10:46→19:58)
[2024-01-04] MEDS: KCL 1012 MEQ IV ×2 (10:46→19:58)
--- NOTE | 2024-01-04 14:29 | CM ---
Addendum entered by Rosi Casas RN 01/04/24 16:05:
Spoke with DIANE Ge; he met with the patient and recommended Inpatient Etoh Rehab however patient does not want to do an inpatient program as he just got promoted to a new job. He agreed to the [facility] outpatient program that includes individual
therapy. Joo also discussed AA meetings and considering the Vivitrol injection.
Plan home with [facility] outpatient Etoh rehab.
Original Note:
Patient with Dx Alcohol withdrawal seizures, Alcohol use disorder severe, Alcohol withdrawal syndrome. Tox screen noted. MSAS. PT Screen; No skilled PT needed.
Met with patient and his mother ;
the patient resides with his mother in a 2 story house.
He has been independent in ADLs and ambulation.
The patient volunteers that he recently started working in a new job.
The patient has no DME.
PCP - Medardo Arreaga
Pharmacy - [facility] [address]
Offered DIANE for Etoh resources/programs and patient agrees.
Patient states he has been drinking for pain control due to chronic hip pain after multiple ortho surgeries since childhood, that radiates down his leg and up to his shoulder/neck and not wanting to take pain meds. Mother wondering if patient needs
to talk to someone for counseling related to this.
Plan follow up after seen by DIANE.
--- NOTE | 2024-01-04 14:46 | W.PN.HOSP.TC ---
Today's Communication/Plan
-
Withdrawal symptoms improved with phenobarbital.
Continue taper.
Continue IV fluids reassess neuro intake and follow electrolytes.
BCARES evaluation pending
In my opinion patient needs inpatient alcohol rehab, although with limited insight declines at this point.
Assessment / Plan
Assessment / Plan
Impression:
Alcohol withdrawal seizures.
Alcohol use disorder severe.
Alcohol withdrawal syndrome.
Severe hypokalemia
Hypomagnesemia
Abnormal LFTs suspect secondary to hepatic alcohol injury.
Essential hypertension.
GERD.
Plan
Alcohol withdrawal seizure
Severe alcohol use disorder with impending DT.
CT scan of the head shows no acute abnormalities
Alcohol level presentation 38
Continue seizure precautions.
Alcohol withdrawal protocol with lorazepam.
Phenobarbital.
Thiamine.
Neurology consultation with no indication for antiepileptic medications.
Hypokalemia
Hypomagnesemia
Continue IV fluids with potassium and magnesium supplements
Follow BMP
Abnormal LFTs secondary to hepatic alcohol injury.
Monitor.
Essential hypertension
Continue preadmission regimen with labetalol and olmesartan. Monitor blood pressure trend.
Anticipated Discharge: 24 - 48 hours
Subjective/Interval History
-
Date of Service: January 04, 2024
Objective Data
-
Labs:
Laboratory Results
01/04/24
04:27
WBC 3.4 L
Hgb 12.9 L
Hct 37.7 L
Plt Count 136
Sodium 132 L
Potassium 3.7 D
Chloride 101
Carbon Dioxide 28
BUN 3 L
Creatinine 0.7
Glucose 100 H
Calcium 7.8 L
Total Bilirubin 3.7 H
AST 207 H
ALT 147 H
Alkaline Phosphatase 113
Vital Signs:
Vital Signs
Temp Pulse Resp BP Pulse Ox
97.9 F 93 31 147/111 94
01/04/24 11:56 01/04/24 10:08 01/04/24 08:00 01/04/24 10:08 01/04/24 00:00
I&O
01/03/24 01/04/24 01/05/24
06:59 06:59 06:59
Intake Total 1200 / 1200 960 / 960
Output Total 3175 / 3175 800 / 800
Balance -1974 / -1974 160 / 160
Physical Exam
-
General: Well Developed and No Apparent Distress
HEENT: Normocephalic, Atraumatic and Moist Mucous Membranes
Respiratory: Clear to Auscultation
Cardiac: Regular Rhythm and S1/S2; Negative Murmur, Rub or Gallop
GI: Soft, Nontender, Nondistended and Normal Bowel Sounds; Negative Organomegaly
Rectal: Deferred by Provider
Musculoskeletal: No Clubbing, No Cyanosis and No Edema
Skin: Negative Rash
Neuro: Awake, Alert, Oriented and Nonfocal/Grossly Intact
--- NOTE | 2024-01-04 15:50 | PN.CDI ---
CDI
- -
CDI:
Physician Documentation Request
Admit Date: 01/03/24 05:00
Dear Doctor Luzma,
Patient admitted for alcohol withdrawal
Laboratory Tests
01/03/24 01/03/24 01/03/24 01/04/24
01:57 06:21 18:30 04:27
Sodium 134 L 133 L 132 L 132 L
Based on the above, could you clarify in the progress notes, the appropriate diagnosis, if significant, that supports the above abnormalities and additional evaluation, monitoring and/or treatment rendered:
Hyponatremia
Abnormal lab value insignificant
Other
Use of terms such as suspected, likely, concern for, or probable (associated with a specific diagnosis that is being evaluated, monitored, or treated as if it exists) are acceptable and can be coded in the inpatient setting, when documented at the
time of discharge.
Thank you,
Catalina Otero RN, BSN
CDI Specialist
Available via [place] text
Please use your independent medical judgment in providing your response.
[2024-01-04] MEDS: HEPARIN SC (19:50)
[2024-01-04] MEDS: FLUSH (NSS) 2 FLUSH IV ×2 (19:51→22:22)
[2024-01-04] MEDS: ATIVAN 1 MG PO (23:10)
--- NOTE | 2024-01-04 23:17 | PTCARENOTE ---
Patient with increased restlessness. MSAS 6. Ativan per protocol.
[2024-01-05] VITALS (11 sets, daily range): BP systolic 129–168; BP diastolic 83–131
[2024-01-05 05:17] LABS: % Eosinophils 1.4 % (0-6); % Lymphocytes 27.3 % (20.5-51.1); % Monocytes 13.8 % (1.7-9.3); % Neutrophils 56.5 % (42.2-75.2); Absolute Lymphocytes 0.8 10^3/uL (1.2-3.4); Absolute Monocytes 0.4 10^3/uL (0.1-0.6); Absolute Neutrophils 1.6 10^3/uL (1.4-6.5); Hematocrit 32.7 % (39.0-52.0); Hemoglobin 11.2 g/dL (13.0-18.0); Mean Corp Hgb Conc. 34.3 g/dL (33.0-37.0); Mean Corpuscular Hgb 34.3 pg (27.0-31.0); Nucleated Red Blood Cells % 0 % (-); Platelet Count 130 10^3/uL (130-400); Red Blood Cell Count 3.27 10^6/uL (4.70-6.10); Red Cell Dist. Width 12.3 % (11.5-14.5); White Blood Cell Count 2.9 10^3/uL (4.8-10.8)
--- NOTE | 2024-01-05 05:21 | PTCARENOTE ---
Patient sleeping intermittently. MSAS 3. NSR on tele.
[2024-01-05] MEDS: KCL 1012 MEQ IV (05:35)
[2024-01-05] MEDS: KCL 1012 GRAMS IV (05:35)
[2024-01-05 07:16] LABS: ALT (SGPT) 130 U/L (0-50); AST (SGOT) 192 U/L (17-59); Albumin 3.7 g/dl (3.5-5.0); Alkaline Phosphatase 129 U/L (38-126); Blood Urea Nitrogen 3 mg/dl (9-20); Calcium 9.5 mg/dl (8.4-10.2); Carbon Dioxide 25 mmol/L (22-30); Chloride 102 mmol/L (98-107); Estimated Creatinine Clearance > 125 ml/min; Glucose 92 mg/dl (70-99); Potassium 4.7 mmol/L (3.5-5.1); Sodium 132 mmol/L (135-145); Total Bilirubin 4.2 mg/dl (0.2-1.3); Total Protein 6.5 g/dl (6.3-8.2); eGFR > 60.00
[2024-01-05] MEDS: THIAMINE INJECTION 200 MG IV ×2 (08:18→20:51)
[2024-01-05] MEDS: VITAMIN D3 (cholecalciferol) 25 MCG PO (08:18)
[2024-01-05] MEDS: BENICAR 40 MG PO (08:18)
[2024-01-05] MEDS: HEPARIN SC ×3 (08:18→20:52)
[2024-01-05] MEDS: FOLVITE 1 MG PO (08:19)
[2024-01-05] MEDS: TRANDATE 200 MG PO (08:19)
[2024-01-05] MEDS: PHENOBARBITAL 97.5 MG IV (08:29)
[2024-01-05] MEDS: MAGNESIUM OXIDE 500 MG PO (10:27)
--- NOTE | 2024-01-05 10:40 | PTCARENOTE ---
Assumed care of pt after morning rounds. Pt is irritable and threatens to leave AMA. Pt encouraged to stay for ongoing medical treatment and safety. He is oriented x 3 and in conversation. Heart rate is sinus tach on monitor. Pt refuses to be
attached to Hard wire IMU monitoring butis agreeable to telemetry pack. Pt ambulates with steady gait at this time but asking many questions about why he cannot be discharged. This RN did notify attending physician of pt's potential AMA.
Maci will be rounding on this pt. Pt ate breakfast and then fell into a sound restful sleep with easy resp. and reg on room air with sinus tachycardia in low 100s while asleep
--- NOTE | 2024-01-05 14:35 | CON.MD ---
Consultation - Medical
-
patient seen chart reviewed. spoke with nursing parents at bedside. consult ordered as patient was threatening to leave ama. he is here bc of a sz in the context of etoh withdrawal. the patient is well known to me from consultation in september
which was a similar scenario w him having suffered a sz in the throes of etoh wd. he left here without seeking any type of rehab at that time. he stayed sober for about two weeks then resumed his intake of etoh. when i saw him today he had
already decided to stay at to continue wd with ativan and phenobarbital. he says he is drinking less on the order of one or twice drinks twice weekly. he last drank the day before he was admitted. he is not depressed. he just got a new
assignment at [employer]. he likes working there. says sleep and appetite are okay. he has never been suicidal. he feels energy is normal for him. he can enjoy himself. one barrier to sobriety is that there is alcohol in the home as both of his
parents do partake of etoh.
past psych hx denied
medical hx hypertension hx etoh withdrawal sx. gerd overweight elevated lft's urobilinogen in urine also hematuria qtc is nl. seen by neuro who feel this is etoh wd sz patient needed 8 mg ativan yesterday only one so far today. currently
phenobarb msas/ativan rx for withdrawal
family hx denied on prior admit
social lives w hermann works for [employer]. denies trauma not m no kids has + friendships
mse alert ox3 cooperative pleasant. .speech and thought process nl mood is euthymic affect ok no si no hi aver intelligence insight judgment fair
dx etoh use d.o etoh wdrawal
recommend continue w msas and phenobarb taper. patient is expressing willingness to remain and participate in etoh rehab as an out pt. should he decide to leave [facility]a which obviously is not in his best interest i do see him as competent to make
that decision. i explained to him the risks of doing so and he does understand them. as stated he is now saying he is willing to remain. ativan prn anxiety for today . will reassess tomorrow.
[2024-01-05] MEDS: ATIVAN 1 MG PO ×2 (15:01→21:56)
--- NOTE | 2024-01-05 16:07 | PTCARENOTE ---
patient awoke from nap in good spirits but then approx 1300 the pt became more restless, angry wanting to leave AMA. Parents arrived and pt arguing with parents who want him to remain hospitalized for ETOH withdrawal and seizure prevention. Pt is
not agreeable and has poor insight into seriousness of withdrawal/seizures. Multiple attempts by nursing and Dr. Lux to educate on the seriousness are unsuccessful. Pt does not recognize the risks of trying to manage independently. Pt denies
need for help with ETOH now or as an outpatient. Pt was refusing any Ativan this am. He was evaluated by Psychiatry and is then agreeable to stay. Pt given p.o. Ativan and appears calmer and less tense at this time. Parents remain at bedside and all
are calm conversation ongoing at this time
[2024-01-05] MEDS: LUMINAL 64.7999999999999972 MG PO ×2 (16:33→20:52)
[2024-01-05] MEDS: KCL IV ×2 (17:11)
--- NOTE | 2024-01-05 18:09 | W.PN.HOSP.TC ---
Today's Communication/Plan
-
Continue Phenobarb taper
MSAS protocol
Continue Thiamine and Folic Acid
Monitor labs, electrolytes as below
Patient is now willing to stay -- appreciate psychiatry assistance
Assessment / Plan
Assessment / Plan
Impression:
Alcohol withdrawal seizures.
Alcohol use disorder severe.
Alcohol withdrawal syndrome.
Severe hypokalemia
Hypomagnesemia
Abnormal LFTs suspect secondary to hepatic alcohol injury.
Essential hypertension.
GERD.
Plan
Alcohol withdrawal seizure
Severe alcohol use disorder with impending DT.
CT scan of the head shows no acute abnormalities
Alcohol level presentation 38
Continue seizure precautions.
Alcohol withdrawal protocol with lorazepam.
Continue Phenobarbital tapering regimen.
Continue Thiamine.
Continue Folic Acid.
Neurology consultation with no indication for antiepileptic medications.
Attempts at Leaving AMA
Patient now okay with staying
Psychiatry saw patient on 01/05/24, appreciate recommendations: should patient decide to leave AMA, he is competent to make that decision, hospitalist and psychiatry explained to him the risks of doing so and he does understand them.
Hypokalemia
Hypomagnesemia
Status post IV fluids with potassium and magnesium supplements -- and now potassium and magnesium are normal
Follow CMP, Magnesium
Abnormal LFTs secondary to hepatic alcohol injury.
Monitor via CMP.
Essential hypertension
Blood pressure stable.
Continue preadmission regimen with labetalol and olmesartan. Monitor blood pressure trend.
Anticipated Discharge: > 48 hours
Subjective/Interval History
-
Date of Service: January 05, 2024
Patient was seen and examined. He was insistent that he wanted to leave, but later on in the day, he was okay with staying. He denied any new symptoms.
Objective Data
-
Labs:
Laboratory Results
01/05/24
06:37
Sodium 132 L
Potassium 4.7 D
Chloride 102
Carbon Dioxide 25
BUN 3 L
Creatinine 0.7
Glucose 92
Calcium 9.5 D
Total Bilirubin 4.2 H
AST 192 H
ALT 130 H
Alkaline Phosphatase 129 H
Vital Signs:
Vital Signs
Temp Pulse Resp BP Pulse Ox
97.7 F 86 20 149/106 99
01/05/24 15:31 01/05/24 12:06 01/05/24 10:26 01/05/24 12:06 01/05/24 10:26
I&O
01/04/24 01/05/24 01/06/24
06:59 06:59 06:59
Intake Total 1200 / 1200 3060 / 3060 2720 / 2720
Output Total 3175 / 3175 800 / 800
Balance -1974 / -1974 2260 / 2260 2720 / 2720
Physical Exam
-
General: No Apparent Distress
HEENT: Normocephalic and Moist Mucous Membranes
Respiratory: Clear to Auscultation
Cardiac: Regular Rhythm and S1/S2
GI: Soft, Nontender and Normal Bowel Sounds
Musculoskeletal: No Cyanosis and No Edema
Skin: Warm and Dry
Neuro: Awake, Alert and AO x 3
Psych: Calm
--- NOTE | 2024-01-05 21:59 | PTCARENOTE ---
Pt AAOx3, with increased MSAS score of 5. Agreeable to take PRN 1mg ativan. Pt expresses anxiety and eagerness to get out of the hospital. Comfort and support provided.
[2024-01-06] VITALS (9 sets, daily range): BP systolic 134–170; BP diastolic 89–130; BMI 32.1
[2024-01-06 04:51] LABS: % Basophils 0.8 % (0-2); % Eosinophils 1.1 % (0-6); % Immature Granulocytes 0.5 % (0-0.5); % Lymphocytes 25.9 % (20.5-51.1); % Neutrophils 53.7 % (42.2-75.2); Absolute Monocytes 0.7 10^3/uL (0.1-0.6); Hematocrit 37.1 % (39.0-52.0); Hemoglobin 12.7 g/dL (13.0-18.0); Mean Corp Hgb Conc. 34.2 g/dL (33.0-37.0); Mean Corpuscular Hgb 34.4 pg (27.0-31.0); Mean Corpuscular Volume 100.5 fL (80.0-94.0); Mean Platelet Volume 10.7 fL (7.4-10.4); Nucleated Red Blood Cells % 0 % (-); Platelet Count 148 10^3/uL (130-400); Red Blood Cell Count 3.69 10^6/uL (4.70-6.10); White Blood Cell Count 3.7 10^3/uL (4.8-10.8)
[2024-01-06 05:15] LABS: ALT (SGPT) 112 U/L (0-50); AST (SGOT) 128 U/L (17-59); Albumin 3.2 g/dl (3.5-5.0); Alkaline Phosphatase 114 U/L (38-126); Blood Urea Nitrogen 5 mg/dl (9-20); Calcium 9.2 mg/dl (8.4-10.2); Carbon Dioxide 26 mmol/L (22-30); Chloride 104 mmol/L (98-107); Estimated Creatinine Clearance > 125 ml/min; Glucose 97 mg/dl (70-99); Magnesium 1.4 mg/dl (1.6-2.3); Potassium 4.7 mmol/L (3.5-5.1); Sodium 134 mmol/L (135-145); Total Bilirubin 2.7 mg/dl (0.2-1.3); Total Protein 5.7 g/dl (6.3-8.2); eGFR > 60.00
[2024-01-06] MEDS: VITAMIN B1 100 MG PO ×2 (08:08→19:28)
[2024-01-06] MEDS: VITAMIN D3 (cholecalciferol) 25 MCG PO (08:08)
[2024-01-06] MEDS: FOLVITE 1 MG PO (08:08)
[2024-01-06] MEDS: TRANDATE 200 MG PO (08:08)
[2024-01-06] MEDS: MAGNESIUM OXIDE 500 MG PO (08:09)
[2024-01-06] MEDS: BENICAR 40 MG PO (08:09)
[2024-01-06] MEDS: LUMINAL 64.7999999999999972 MG PO ×3 (08:09→21:27)
[2024-01-06] MEDS: HEPARIN SC ×2 (08:09→20:26)
[2024-01-06] MEDS: ATIVAN 1 MG PO ×2 (08:17→21:27)
--- NOTE | 2024-01-06 08:42 | PTCARENOTE ---
Assumed care of patient at beginning of this shift from previous RN. While asleep, 0700 MSAS =0; however once awake, MSAS increased to 6 d/t HR, visualized minor tremors, mild diaphoresis and increased activity. Patient agreeable to po ativan. BP
163/111; scheduled labetalol given as ordered. Patient refused heparin injection; education provided. See worklist for full assessment, MSAS scores and vital signs; see MAR for med administration.
--- NOTE | 2024-01-06 09:19 | W.PN.HOSP.TC ---
Today's Communication/Plan
-
Patient's IV line was burning, and he does not want another IV line put in
Continue Phenobarb taper
Labs/electrolytes in the morning
Appreciate psychiatry
Assessment / Plan
Assessment / Plan
Impression:
Alcohol withdrawal seizures.
Alcohol use disorder severe.
Alcohol withdrawal syndrome.
Severe hypokalemia
Hypomagnesemia
Abnormal LFTs suspect secondary to hepatic alcohol injury.
Essential hypertension.
GERD.
Plan
Alcohol withdrawal seizure
Severe alcohol use disorder with impending DT.
CT scan of the head shows no acute abnormalities
Alcohol level presentation 38
Continue seizure precautions.
Alcohol withdrawal protocol with lorazepam.
Continue Phenobarbital tapering regimen.
Continue Thiamine.
Continue Folic Acid.
Neurology consultation with no indication for antiepileptic medications.
Attempts at Leaving AMA
Patient now okay with staying
Psychiatry saw patient on 01/05/24, appreciate recommendations: should patient decide to leave AMA, he is competent to make that decision, hospitalist and psychiatry explained to him the risks of doing so and he does understand them.
Hypokalemia
Hypomagnesemia
Status post IV fluids with potassium and magnesium supplements -- potassium and magnesium have improved
Patient does not want IV lines
He is eating and drinking fine
Follow CMP, Magnesium
Abnormal LFTs secondary to hepatic alcohol injury.
Monitor via CMP.
Essential hypertension
Blood pressure stable.
Continue preadmission regimen with labetalol and olmesartan. Amlodipine added due to high blood pressures. Monitor blood pressure trend.
Anticipated Discharge: 24 - 48 hours
Subjective/Interval History
-
Date of Service: January 06, 2024
Patient was seen and examined. His parents were present in his room. He reported no new significant symptoms or complaints.
Objective Data
-
Labs:
Laboratory Results
01/06/24
04:36
WBC 3.7 L
Hgb 12.7 L
Hct 37.1 L
Plt Count 148
Sodium 134 L
Potassium 4.7
Chloride 104
Carbon Dioxide 26
BUN 5 L
Creatinine 0.6 L
Glucose 97
Calcium 9.2
Total Bilirubin 2.7 H
AST 128 H
ALT 112 H
Alkaline Phosphatase 114
Vital Signs:
Vital Signs
Temp Pulse Resp BP Pulse Ox
98.2 F 70 20 163/111 99
01/06/24 08:00 01/06/24 08:08 01/05/24 10:26 01/06/24 08:08 01/05/24 21:42
I&O
01/05/24 01/06/24 01/07/24
06:59 06:59 06:59
Intake Total 3060 / 3060 2720 / 2720
Output Total 800 / 800
Balance 2260 / 2260 2720 / 2720
Physical Exam
-
General: No Apparent Distress
HEENT: Normocephalic and Moist Mucous Membranes
Respiratory: Clear to Auscultation
Cardiac: Regular Rhythm and S1/S2
GI: Soft, Nontender and Normal Bowel Sounds
Musculoskeletal: No Cyanosis and No Edema
Skin: Warm and Dry
Neuro: Awake, Alert and AO x 3
Psych: Calm
--- NOTE | 2024-01-06 10:11 | PTCARENOTE ---
Mg 1.4; patient ordered Mg rider. When attempting to flush IV site, patient c/o severe burning. Dr Lux made aware via [place] text; he changed po magnesium order. VAT RN notified to check IV on rounds.
--- NOTE | 2024-01-06 11:45 | W.PN.UPDATE ---
Update Note
Progress Note Update
patient seen chart reviewed. discussed w nursing. mr mario had a prn of ativan this am. his bp is very high. texted hospitalist. this is more than wd in my opinion. he reports bp has never been in good control and he was dx with htn. he is
cooperating w remaining in hospital. he does continue to express willingness to engage in intensive out pt rehab upon discharge which is a +. i would recommend in patient but i suspect that will not happen at this point but at least he is
recognizing he needs to do something. continue w phenobarb and ativan as per msas. will follow
[2024-01-06] MEDS: NORVASC 5 MG PO (12:59)
--- NOTE | 2024-01-06 13:08 | PTCARENOTE ---
Addendum entered by Mary Rogers RN 01/06/24 14:05:
BP 134/89; patient sleeping.
Original Note:
BP continues to run high despite being given scheduled dose of labetalol. 163/111-170/130. Patient stated he was supposed to get an MRA of his kidneys prior to coming to the hospital, but has not scheduled it yet. IV team rounded and removed INT d/t
occlusion; patient refused to have another one placed. [place] text sent to Dr Lux who ordered norvasc 5mg po which was given. He also changed diet to low sodium; patient updated but chose to eat food brought in from home.
--- NOTE | 2024-01-06 17:32 | PTCARENOTE ---
Patient requested note from Dr Lux for being in the hospital. Dr Lux wrote note and placed on chart. This nurse gave to patient at his request.
[2024-01-06] MEDS: MAG-TAB SR 84 MG PO (19:28)
--- NOTE | 2024-01-06 21:40 | PTCARENOTE ---
Pt ambulating in room and hallway. Appears calm and communicates with staff appropriately, but reports feeling restless with increasing anxiety, requests PRN dose of ativan. Given per NOV.
[2024-01-07] VITALS (15 sets, daily range): BP systolic 116–167; BP diastolic 75–130
[2024-01-07] MEDS: APRESOLINE 10 MG PO (01:07)
--- NOTE | 2024-01-07 01:45 | PTCARENOTE ---
BP elevated, 165/130. PRN hydralazine order obtained and given per MAR
[2024-01-07 06:35] LABS: % Eosinophils 1.2 % (0-6); % Immature Granulocytes 0.2 % (0-0.5); % Lymphocytes 25.9 % (20.5-51.1); % Neutrophils 52.7 % (42.2-75.2); Absolute Eosinophils 0.1 10^3/uL (0-0.7); Absolute Lymphocytes 1.1 10^3/uL (1.2-3.4); Absolute Monocytes 0.8 10^3/uL (0.1-0.6); Absolute Neutrophils 2.2 10^3/uL (1.4-6.5); Hematocrit 37.5 % (39.0-52.0); Hemoglobin 13.1 g/dL (13.0-18.0); Mean Corp Hgb Conc. 34.9 g/dL (33.0-37.0); Mean Corpuscular Hgb 35.2 pg (27.0-31.0); Mean Corpuscular Volume 100.8 fL (80.0-94.0); Mean Platelet Volume 10.6 fL (7.4-10.4); Nucleated Red Blood Cells % 0 % (-); Platelet Count 141 10^3/uL (130-400); Red Blood Cell Count 3.72 10^6/uL (4.70-6.10); Red Cell Dist. Width 13.2 % (11.5-14.5); White Blood Cell Count 4.1 10^3/uL (4.8-10.8)
[2024-01-07 06:45] LABS: ALT (SGPT) 82 U/L (0-50); AST (SGOT) 97 U/L (17-59); Albumin 3.4 g/dl (3.5-5.0); Alkaline Phosphatase 110 U/L (38-126); Blood Urea Nitrogen 7 mg/dl (9-20); Calcium 9.6 mg/dl (8.4-10.2); Carbon Dioxide 25 mmol/L (22-30); Chloride 101 mmol/L (98-107); Estimated Creatinine Clearance > 125 ml/min; Glucose 98 mg/dl (70-99); Magnesium 1.4 mg/dl (1.6-2.3); Potassium 4.3 mmol/L (3.5-5.1); Sodium 135 mmol/L (135-145); Total Bilirubin 2.1 mg/dl (0.2-1.3); eGFR > 60.00
[2024-01-07] MEDS: HEPARIN SC (08:07)
[2024-01-07] MEDS: FOLVITE 1 MG PO (08:12)
[2024-01-07] MEDS: LUMINAL 64.7999999999999972 MG PO (08:13)
[2024-01-07] MEDS: VITAMIN D3 (cholecalciferol) 25 MCG PO (08:13)
[2024-01-07] MEDS: NORVASC 5 MG PO (08:13)
[2024-01-07] MEDS: VITAMIN B1 100 MG PO ×2 (08:13→19:37)
[2024-01-07] MEDS: BENICAR 40 MG PO (08:13)
[2024-01-07] MEDS: MAG-TAB SR 84 MG PO ×2 (08:13→19:36)
[2024-01-07] MEDS: TRANDATE 200 MG PO ×2 (08:15→19:36)
--- NOTE | 2024-01-07 12:24 | PTCARENOTE ---
Pt ordered IV Mag rider. D/w pt- still refusing to allow IV site to be placed. Dr. Segal notified via TT. Order canceled.
[2024-01-07] MEDS: CATAPRES 0.100000000000000006 MG PO ×2 (12:29→19:37)
--- NOTE | 2024-01-07 15:11 | W.PN.UPDATE ---
Update Note
Progress Note Update
Pt seen with parents present; pt dressed in street clothes, sitting up in chair, appears in no distress. Pt alert, oriented, states he has picked out an Intensive Outpatient alcohol rehab program; plans to return to work and can attend the program
around his work schedule. Affect/mood appropriate/stable.
Imp: Alcohol Use d/o, severe. Alcohol withdrawal seizure, stabilized on MSAS and Phenobarb taper
Rec: agree with alcohol rehab program; no other psychiatric intervention needed
will follow peripherally
--- NOTE | 2024-01-07 15:38 | PTCARENOTE ---
Pt with paperwork needing to be filled out in order for him to return to work. Paperwork printed and placed on front of paper chart. Dr. Segal notified via TT.
--- NOTE | 2024-01-07 16:02 | W.PN.HOSP.TC ---
Today's Communication/Plan
-
Phenobarbital taper
Adjust antihypertensive regimen.
Assessment / Plan
Assessment / Plan
Impression:
Alcohol withdrawal seizures.
Alcohol use disorder severe.
Alcohol withdrawal syndrome.
Severe hypokalemia
Hypomagnesemia
Abnormal LFTs suspect secondary to hepatic alcohol injury.
Essential hypertension.
GERD.
Plan
Alcohol withdrawal seizure
Severe alcohol use disorder with impending DT.
CT scan of the head shows no acute abnormalities
Alcohol level presentation 38
Continue seizure precautions.
Alcohol withdrawal protocol with lorazepam.
Continue Phenobarbital tapering regimen.
Continue Thiamine.
Continue Folic Acid.
Neurology consultation with no indication for antiepileptic medications.
Attempts at Leaving AMA
Patient now okay with staying
Psychiatry saw patient on 01/05/24, appreciate recommendations: should patient decide to leave AMA, he is competent to make that decision, hospitalist and psychiatry explained to him the risks of doing so and he does understand them.
Hypokalemia
Hypomagnesemia
Status post IV fluids with potassium and magnesium supplements -- potassium and magnesium have improved
He is eating and drinking fine
Follow CMP, Magnesium
Abnormal LFTs secondary to hepatic alcohol injury.
Monitor via CMP.
Essential hypertension
Accelerated hypertension with hypertensive urgency likely driven by alcohol withdrawal.
Increase labetalol to 200 mg twice daily. Continue losartan. Add clonidine. Hold Norvasc for now.
Anticipated Discharge: 24 - 48 hours
Subjective/Interval History
-
Date of Service: January 07, 2024
Objective Data
-
Labs:
Laboratory Results
01/07/24
06:02
WBC 4.1 L
Hgb 13.1
Hct 37.5 L
Plt Count 141
Sodium 135
Potassium 4.3
Chloride 101
Carbon Dioxide 25
BUN 7 L
Creatinine 0.6 L
Glucose 98
Calcium 9.6
Total Bilirubin 2.1 H
AST 97 H
ALT 82 H
Alkaline Phosphatase 110
Vital Signs:
Vital Signs
Temp Pulse Resp BP Pulse Ox
98.2 F 100 20 116/75 96
01/07/24 15:43 01/07/24 15:45 01/05/24 10:26 01/07/24 15:45 01/07/24 08:25
I&O
01/06/24 01/07/24 01/08/24
06:59 06:59 06:59
Intake Total 2720 / 2720 3360 / 3360
Balance 2720 / 2720 3360 / 3360
Physical Exam
-
General: Well Developed and No Apparent Distress
HEENT: Normocephalic, Atraumatic and Moist Mucous Membranes
Respiratory: Clear to Auscultation
Cardiac: Regular Rhythm and S1/S2; Negative Murmur, Rub or Gallop
GI: Soft, Nontender, Nondistended and Normal Bowel Sounds; Negative Organomegaly
Rectal: Deferred by Provider
Musculoskeletal: No Clubbing, No Cyanosis and No Edema
Skin: Negative Rash
Neuro: Awake, Alert, Oriented, Tremors (Minimal raised bilateral upper extremity tremor) and Nonfocal/Grossly Intact
[2024-01-07] MEDS: LUMINAL 32.3999999999999986 MG PO ×2 (17:30→21:57)
[2024-01-08 04:00] VITALS: BP 156/94
[2024-01-08 04:28] VITALS: BP 156/94
--- NOTE | 2024-01-08 05:09 | PTCARENOTE ---
Pt ambulating, using the bathroom independently. Denies complaints throughout the night, but does express eagerness to go home today. Treatment plan discussed.
[2024-01-08 06:07] LABS: % Basophils 1.2 % (0-2); % Eosinophils 1.2 % (0-6); % Immature Granulocytes 0.6 % (0-0.5); % Lymphocytes 25.2 % (20.5-51.1); % Neutrophils 52.8 % (42.2-75.2); Absolute Basophils 0.1 10^3/uL (0-0.2); Absolute Eosinophils 0.1 10^3/uL (0-0.7); Absolute Lymphocytes 1.2 10^3/uL (1.2-3.4); Absolute Monocytes 0.9 10^3/uL (0.1-0.6); Absolute Neutrophils 2.6 10^3/uL (1.4-6.5); Hematocrit 38.2 % (39.0-52.0); Hemoglobin 13.4 g/dL (13.0-18.0); Mean Corp Hgb Conc. 35.1 g/dL (33.0-37.0); Mean Corpuscular Hgb 35.4 pg (27.0-31.0); Mean Corpuscular Volume 101.1 fL (80.0-94.0); Mean Platelet Volume 10.1 fL (7.4-10.4); Nucleated Red Blood Cells % 0 % (-); Platelet Count 155 10^3/uL (130-400); Red Blood Cell Count 3.78 10^6/uL (4.70-6.10); Red Cell Dist. Width 13.2 % (11.5-14.5); White Blood Cell Count 4.8 10^3/uL (4.8-10.8)
[2024-01-08 06:32] LABS: ALT (SGPT) 76 U/L (0-50); AST (SGOT) 94 U/L (17-59); Albumin 3.5 g/dl (3.5-5.0); Alkaline Phosphatase 100 U/L (38-126); Blood Urea Nitrogen 8 mg/dl (9-20); Calcium 10.2 mg/dl (8.4-10.2); Carbon Dioxide 27 mmol/L (22-30); Chloride 101 mmol/L (98-107); Estimated Creatinine Clearance > 125 ml/min; Glucose 106 mg/dl (70-99); Magnesium 1.4 mg/dl (1.6-2.3); Potassium 4.5 mmol/L (3.5-5.1); Sodium 135 mmol/L (135-145); Total Bilirubin 1.9 mg/dl (0.2-1.3); Total Protein 6.1 g/dl (6.3-8.2); eGFR > 60.00
[2024-01-08 08:26] VITALS: BP 133/93
[2024-01-08] MEDS: MAG-TAB SR 84 MG PO (08:29)
[2024-01-08] MEDS: VITAMIN B1 100 MG PO (08:30)
[2024-01-08] MEDS: FOLVITE 1 MG PO (08:31)
[2024-01-08] MEDS: TRANDATE 200 MG PO (08:31)
[2024-01-08] MEDS: CATAPRES 0.100000000000000006 MG PO (08:31)
[2024-01-08] MEDS: VITAMIN D3 (cholecalciferol) 25 MCG PO (08:31)
[2024-01-08] MEDS: BENICAR 40 MG PO (08:31)
[2024-01-08] MEDS: LUMINAL 32.3999999999999986 MG PO (08:32)
[2024-01-08 11:28] VITALS: BP 140/93
--- NOTE | 2024-01-08 11:40 | W.DS.TRANS ---
DC Summary - [employer]
-
Discharge Instructions:
Discharge Diagnosis/Procedures ETOH use disorder.
HTN
Diet Regular
Instructions:
Stand-Alone Forms:
Changes to Home Medications: Yes
Discharge Medications:
DC Medications w/original date entered in [employer]
cholecalciferol (vitamin D3) 25 mcg (1,000 unit) tablet (Vitamin D3) 25 mcg PO DAILY Supplement 09/19/23
magnesium oxide 400 mg PO DAILY Electrolyte Repletion 09/19/23
olmesartan 40 mg tablet (Benicar) 40 mg PO DAILY Blood Pressure 09/19/23
folic acid 1 mg tablet 1 mg PO DAILY #20 tabs 09/21/23
thiamine HCl (vitamin B1) 100 mg tablet 100 mg PO BID Supplement 01/03/24
clonidine HCl 0.1 mg tablet 0.1 mg PO BID #60 tabs 01/08/24
labetalol 200 mg tablet 200 mg PO BID #60 tabs 01/08/24
Home Medication Changes
Labetalol dose increased
Clonidine added
Pending Results: No
--- NOTE | 2024-01-08 13:27 | CM ---
Patient with Dx Alcohol withdrawal seizures, Alcohol use disorder severe, Alcohol withdrawal syndrome.
Met with patient who was preparing for discharge. The patient says he feels ready for discharge home today. The patient reconfirms that he plans on doing the outpatient Etoh rehab program. His mother will provide transport home.
Plan home today with [facility] outpatient Etoh rehab.
== END 2024-01-08 12:29 | disposition home or self-care (01) | DRG 897 ==
LOC: IMU 05:00
PROVIDERS: Hospitalist; ADMITTING PHYSICIAN Hospitalist; ATTENDING PHYSICIAN Internal Medicine; CONSULT PHYSICIAN Psychiatry & Neurology Psychiatry; CONSULT PHYSICIAN Student in an Organized Health Care Education/Training Program; EMERGENCY PHYSICIAN Emergency Medicine; FAMILY PHYSICIAN Family Medicine
DX: F10.239 Alcohol dependence with withdrawal, unspecified (principal); E87.1 Hypo-osmolality and hyponatremia; K21.9 Gastro-esophageal reflux disease without esophagitis; R11.0 Nausea; G40.909 Epilepsy, unspecified, not intractable, without status epilepticus; I10 Essential (primary) hypertension; G25.2 Other specified forms of tremor; S80.01XA Contusion of right knee, initial encounter; S80.02XA Contusion of left knee, initial encounter; S00.83XA Contusion of other part of head, initial encounter; E86.0 Dehydration; E83.42 Hypomagnesemia; R20.0 Anesthesia of skin; Y90.1 Blood alcohol level of 20-39 mg/100 ml; R74.01 Elevation of levels of liver transaminase levels; E66.9 Obesity, unspecified; E87.6 Hypokalemia; W01.198A Fall on same level from slipping, tripping and stumbling with subsequent striking against other object, initial encounter; Y93.9 Activity, unspecified; Y92.89 Other specified places as the place of occurrence of the external cause; Y99.0 Civilian activity done for income or pay; Z68.32 Body mass index [BMI] 32.0-32.9, adult
CPT/HCPCS: 70450; 80048; 80053; 80306; 80307; 81003; 81015; 82077; 82248; 83735; 84100; 85025; 85610; 85730; 96374; 99285

== ENCOUNTER 2024-03-06 18:23 | Inpatient (IN) | payer BC, SELFPAY ==
[2024-03-06] VITALS (11 sets, daily range): BP systolic 121–175; BP diastolic 94–131; BMI 31.5
[2024-03-06 16:32] LABS: Glucose - Point of Care 143 mg/dl (70-99)
[2024-03-06] MEDS: ATIVAN 2 MG IV (16:36)
[2024-03-06] MEDS: NSS 1000 IV ×2 (16:37→20:49)
--- NOTE | 2024-03-06 16:37 | ED.GENMED ---
History of Present Illness
<Marge Bonilla PA-C - Last Filed: 03/06/24 20:28>
General
Chief Complaint: Seizure
Source: patient and ambulance crew
Exam Limitations: clinical condition
Time Seen by Provider: 03/06/24 16:28
Nursing documentation reviewed up to this point in time: agreed with
History of Present Illness
History of Present Illness:
Patient is a 23-year-old male with a history of alcohol withdrawal seizure and daily alcohol abuse, 1 pint of vodka daily until 6�25 presented via EMS after a syncopal episode that was witnessed by mom while the patient was laying in bed.
but when i spke with mom - mom says pt seemed spacy and walked to the bathroom, was sweating, came nii and made a funny noise with his mouth and then laid into the bed, stared and then his arms stiffened. She called 911. For EMS patient was awake
and alert. He had no incontinence. He was tachycardic and hypertensive and shaky.
Upon arrival he was initially awake and alert but within 10 minutes of getting into the ER bed patient had a witnessed tonic-clonic seizure, he did macerate and bite down on his left side of his tongue. He broke his seizure on his own. Was briefly
postictal. Upon awaking was oriented but very tremulous and sweaty. He did not remember what happened but admitted that he stopped drinking 2 days ago. He has had previous alcohol withdrawal seizures. He was on phenobarb drip in the ICU last
time in December
He feels a mild headache, he has no hallucinations at this time
Past History
<Marge Bonilla PA-C - Last Filed: 03/06/24 20:28>
Past History
ED Past Medical History: GERD, HTN and Seizures
ED Past Surgical History: Orthopedic
Social History
Tobacco: Non-smoker
Alcohol: Binge drinker
Drug: None
Personal: Single
Living: with family
Employment: Employed
Review of Systems
<Marge Bonilla PA-C - Last Filed: 03/06/24 20:28>
Review of Systems
Allergies reviewed?: Yes
All Other Systems: Not applicable
Phy Exam
<EKATERINA Fitzpatrick Last Filed: 03/06/24 20:28>
Physical Exam
Physical Exam:
GENERAL: Patient was actively seizing initially and then broke his seizure was oriented but tremulous
HEAD: NCAT,
NECK: no midline tenderness, active ROM intact, no paraspinal muscle tenderness;
EYE: pupils equal and reactive, EOMs intact.
ENT: o/p clr, mmm. no hemotympanum
Patient had a macerated laceration to the left side of his tongue without ability to suture, there is some bleeding that was controlled
CARDIAC: Tachycardic in the 150s
LUNGS: Clear breath sounds bilaterally, no acute respiratory distress, no wheezes/rales/rhonchi
ABDOMEN: Soft, without focal tenderness, no r/g, no cvat
NEUROLOGICAL: Alert and oriented, tremor especially with intention, no focal neurodeficits, full range of motion of his extremities
SKIN: Warm and dry, diaphoretic
MUSCULOSKELETAL: No edema, well perfused.
PSYCH: Agitated slightly
Scores
<EKATERINA Fitzpatrick Last Filed: 03/06/24 20:28>
Withdrawal Assessment of Alcohol
Withdrawal Assessment Completed?: Yes
Nausea and Vomiting: Mild nausea with no vomiting
Tactile Disturbances: Very mild itching, pins and needles, burning or numbness
Tremor: Moderate, with patient's arms extended
Auditory Disturbances: Not present
Paroxysmal Sweats: Beads of sweat obvious on forehead
Visual Disturbances: Not present
Anxiety: Mild anxiety
Headache, Fullness in Head: Moderate
Agitation: Moderately fidgety and restless
Orientation and clouding of sensorium: Cannot do serial additions or is uncertain about date
Total CIWA Score: 19
Alcohol Withdrawal Medication Recommendation: Equal to MSAS Score 8-11. Lorazepam 1-2mg IV NOW & re-assess q1hr
<Surinder Strauss MD - Last Filed: 03/06/24 18:45>
Withdrawal Assessment of Alcohol
Total CIWA Score: 19
Alcohol Withdrawal Medication Recommendation: Equal to MSAS Score 8-11. Lorazepam 1-2mg IV NOW & re-assess q1hr
Course
<Marge Bonilla PA-C - Last Filed: 03/06/24 20:28>
Orders/Labs/Results
Orders:
Orders
03/06/24 16:16
Electrocardiogram (*1) Urgent
Reason for Study: Chest Pain
Cardiac Monitoring- Treatment ONCE
EKG- Treatment ONCE
IV Insert/Care/Rem.- Treatment PRN
O2 Therapy [RESP] Urgent
Titrate/Wean O2 to maintain O2 sat greater than (%): 90
Special Instructions: Maintain sats >/=90%
Pulse Ox/spot Check [RESP] Urgent
Quantity: 1
Special Instructions: ON ROOM AIR
03/06/24 16:21
Lorazepam [Ativan] 2 mg .ROUTE .STK-MED ONE
03/06/24 16:28
Add On- LAB Urgent
Tests Added?: magnesium, alcohol
03/06/24 16:29
Drug Screen, Urine [Urine Drug Abuse Screen] Urgent
03/06/24 16:31
Alcohol Urgent
Complete Blood Count/With Diff Urgent
Comprehensive Metabolic Panel Urgent
Lactic Acid Urgent
Lipase Urgent
Magnesium Urgent
Comment: ADD ON
03/06/24 16:35
Add On- LAB Urgent
Tests Added?: magnesium
Venous Blood Gas Urgent
%Oxygen/Room Air: 97
0.9% Sodium Chloride 1000 ml [Nss] 1,000 ml IV BOLUS
Lorazepam [Ativan] 2 mg IV NOW STA
03/06/24 16:36
0.9% Sodium Chloride 1000 ml [Nss] 1,000 ml IV BOLUS
03/06/24 16:48
Dextrose 5%/0.9%Sodchl 1000 ml [D5/0.9% Sodium Chloride] 1,000 ml IV 1,000 mls/hr
03/06/24 17:02
FOLic ACID [Folvite] 1 mg 0.9% Sodium Chloride 50 ml [Nss] 50 ml IV NOW
Thiamine Injection 500 mg 0.9% Sodium Chloride 250 ml [Nss] 250 ml IV NOW
03/06/24 17:06
Magnesium Sulfate 1 G/D5w [Magnesium Sulfate] 1 gm in 100 ml IV NOW
03/06/24 17:21
Levetiracetam Injectable [Keppra] 1,500 mg IV NOW STA
03/06/24 17:31
Lorazepam [Ativan] 1 mg IV NOW STA
03/06/24 17:44
Magnesium Sulfate 2 Gram/50 ml [Magnesium Sulfate] 2 gram in 50 ml IV NOW
03/06/24 17:45
Admit/Transfer Patient As Directed
Co-Sign Provider:
Level of Care: Inpatient admission
Assign to:: ICU
Physician / Group: Sandi Rod
Diagnosis: Alcohol Withdrawal Seizure
Reason for Hospitalization: Alcohol Withdrawal Seizure
Expected length of stay greater than two midnights?: Yes
ELOS- Estimated Length of Stay in days: 2
I certify the patient meets the requirements for IP care: Yes
03/06/24 17:52
Code Status As Directed
Resuscitation Status: Full Code
03/06/24 18:03
Splitting Machine Operator Helper Consult Routine
Consulting Provider: Katlin Raymond
Was physician already notified: Yes
Reason for consult: alcohol withdrawal sz
NEUROLOGY CONSULT Routine
Consulting Provider: Dahval Morgan
Was physician already notified: Yes
Reason for consult: alcohol withdrawal seizure
03/06/24 18:16
Phenobarbital Sodium [Phenobarbital] 260 mg 0.9% Sodium Chloride 100 ml [Nss] 100 ml IV NOW
03/06/24 19:36
Lactic Acid Q6H
0.9% Sodium Chloride 1000 ml [Nss] 1,000 ml IV 100 mls/hr
0.9% Sodium Chloride [Nss (Preservative Free)] See Protocol IV PRN PRN
Acetaminophen [Tylenol] 650 mg PO Q4HPRN PRN
Bisacodyl [Dulcolax] 10 mg RECTAL [id number] PRN
Docusate W/Senna [Senokot-S] 1 tablet PO BIDPRN PRN
Enoxaparin Sodium [Lovenox] 40 mg SC QPM
FOLic ACID [Folvite] 1 mg 0.9% Sodium Chloride 50 ml [Nss] 50 ml IV DAILYPRN
Labetalol HCl [Trandate] 10 mg IV Q6HPRN PRN
Lorazepam [Ativan] 1 mg IV Q1HPRN PRN
Lorazepam [Ativan] 1 mg PO Q2HPRN PRN
Lorazepam [Ativan] 2 mg IV Q1HPRN PRN
Polyethylene Glycol Powder [Miralax] 17 grams PO DAILYPRN PRN
03/06/24 19:36
Case Management Consult Once
Case Management Consult: Other
Comment: Substance abuse counseling
DIETARY CONSULT Routine
Reason for Consult: Nutrition support, possible refeeding guidelines
Alcohol Urgent
B-Hydroxybutyrate Urgent
PTT Urgent
Phosphorus Urgent
Prothrombin Time Urgent
Urinalysis Routine
Activity As Directed
Activity Level: With Assistance
MSAS SCORE As Directed
MSAS Score 0-4: Repeat MSAS every 2 hours until 0-4 for three consecutive assessments, then every 4 hours x 48
hours.
MSAS Score 5-7: For MILD withdrawl symptoms. Repeat MSAS and RASS every 2 hours
MSAS Score 8-11: For MODERATE withdrawal symptoms. Repeat MSAS and RASS every 1 hour. Consider ICU or IMU
level of care.
MSAS Score > 11: For SEVERE withdrawal symptoms. Repeat MSAS and RASS every 1 hour. Notify provider, consider
ICU level of care.
MSAS Additional Instructions: If no improvement or no decrease in score from severe to moderate within 12
hours, consult psychiatry
MSAS Notify Provider: Notify provider if patient requires more than 10 mg of Lorazepam in eight hour period.
Precautions As Directed
Type of Precautions: Other
Seizure
Aspiration
Comment: fall precautions
Vital Signs As Directed
Frequency: Per unit guidelines
DX Deep Vein Thrombosis Video Routine
03/06/24 23:50
Comprehensive Metabolic Panel Routine
Magnesium Routine
Phosphorus Routine
03/07/24 06:00
Complete Blood Count/No Diff IN AM
Comprehensive Metabolic Panel IN AM
Magnesium IN AM
03/07/24 08:00
FOLic ACID [Folvite] 1 mg PO DAILY
Levetiracetam Injectable [Keppra] 1,500 mg IV Q12
Phenobarbital Sodium [Phenobarbital] 97.5 mg IV TID
Thiamine Injection 200 mg IV Q12
03/09/24 08:00
Phenobarbital [Luminal] 64.8 mg PO TID
03/10/24 08:00
Thiamine HCl [Vitamin B1] 100 mg PO BID
03/11/24 08:00
Phenobarbital [Luminal] 32.4 mg PO TID
Abnormal Lab Results
03/06/24 03/06/24 03/06/24
16:30 16:31 16:35
RBC 4.64 L 10^6/uL
(4.70-6.10)
MCV 94.2 H fL
(80.0-94.0)
MCH 34.7 H pg
(27.0-31.0)
Absolute Lymphs (auto) 0.8 L 10^3/uL
(1.2-3.4)
Neutrophils % 76.5 H %
(42.2-75.2)
Lymphocytes % 12.6 L %
(20.5-51.1)
VBG pH 7.02 L*
(7.32-7.43)
VBG pO2 85 H mmHg
(30-50)
VBG HCO3 9.8 L mmol/L
(22-27)
Carbon Dioxide 20 L mmol/L
(22-30)
BUN 5 L mg/dl
(9-20)
Glucose 138 H mg/dl
(70-99)
Lactic Acid 21.2 H* mmol/L
(0.7-2.0)
Magnesium 0.7 L* mg/dl
(1.6-2.3)
Total Bilirubin 2.3 H mg/dl
(0.2-1.3)
AST 360 H U/L
(17-59)
ALT 197 H U/L
(0-50)
Alkaline Phosphatase 127 H U/L
(38-126)
POC Glucose 143 H mg/dl
(70-99)
03/06/24 16:31
03/06/24 16:31
Vital Signs
Initial and Last Documented VS:
Initial Vital Signs
Pulse Resp BP
109 27 175/120
03/06/24 16:15 03/06/24 16:15 03/06/24 16:15
Last Documented Vital Signs
Temp Pulse Resp BP Pulse Ox
98.9 F 131 24 159/110 96
03/06/24 16:30 03/06/24 19:45 03/06/24 19:45 03/06/24 19:33 03/06/24 19:45
<Surinder Strauss MD - Last Filed: 03/06/24 18:45>
Orders/Labs/Results
Orders:
Orders
03/06/24 16:16
Electrocardiogram (*1) Urgent
Reason for Study: Chest Pain
Cardiac Monitoring- Treatment ONCE
EKG- Treatment ONCE
IV Insert/Care/Rem.- Treatment PRN
O2 Therapy [RESP] Urgent
Titrate/Wean O2 to maintain O2 sat greater than (%): 90
Special Instructions: Maintain sats >/=90%
Pulse Ox/spot Check [RESP] Urgent
Quantity: 1
Special Instructions: ON ROOM AIR
03/06/24 16:21
Lorazepam [Ativan] 2 mg .ROUTE .STK-MED ONE
03/06/24 16:28
Add On- LAB Urgent
Tests Added?: magnesium, alcohol
03/06/24 16:29
Drug Screen, Urine [Urine Drug Abuse Screen] Urgent
03/06/24 16:31
Alcohol Urgent
Complete Blood Count/With Diff Urgent
Comprehensive Metabolic Panel Urgent
Lactic Acid Urgent
Lipase Urgent
Magnesium Urgent
Comment: ADD ON
03/06/24 16:35
Add On- LAB Urgent
Tests Added?: magnesium
Venous Blood Gas Urgent
%Oxygen/Room Air: 97
0.9% Sodium Chloride 1000 ml [Nss] 1,000 ml IV BOLUS
Lorazepam [Ativan] 2 mg IV NOW STA
03/06/24 16:36
0.9% Sodium Chloride 1000 ml [Nss] 1,000 ml IV BOLUS
03/06/24 16:48
Dextrose 5%/0.9%Sodchl 1000 ml [D5/0.9% Sodium Chloride] 1,000 ml IV 1,000 mls/hr
03/06/24 17:02
FOLic ACID [Folvite] 1 mg 0.9% Sodium Chloride 50 ml [Nss] 50 ml IV NOW
Thiamine Injection 500 mg 0.9% Sodium Chloride 250 ml [Nss] 250 ml IV NOW
03/06/24 17:06
Magnesium Sulfate 1 G/D5w [Magnesium Sulfate] 1 gm in 100 ml IV NOW
03/06/24 17:21
Levetiracetam Injectable [Keppra] 1,500 mg IV NOW STA
03/06/24 17:31
Lorazepam [Ativan] 1 mg IV NOW STA
03/06/24 17:44
Magnesium Sulfate 2 Gram/50 ml [Magnesium Sulfate] 2 gram in 50 ml IV NOW
03/06/24 17:45
Admit/Transfer Patient As Directed
Co-Sign Provider:
Level of Care: Inpatient admission
Assign to:: ICU
Physician / Group: Sandi Rod
Diagnosis: Alcohol Withdrawal Seizure
Reason for Hospitalization: Alcohol Withdrawal Seizure
Expected length of stay greater than two midnights?: Yes
ELOS- Estimated Length of Stay in days: 2
I certify the patient meets the requirements for IP care: Yes
03/06/24 17:52
Code Status As Directed
Resuscitation Status: Full Code
03/06/24 18:03
Splitting Machine Operator Helper Consult Routine
Consulting Provider: Katlin Raymond
Was physician already notified: Yes
Reason for consult: alcohol withdrawal sz
NEUROLOGY CONSULT Routine
Consulting Provider: Dhaval Morgan
Was physician already notified: Yes
Reason for consult: alcohol withdrawal seizure
03/06/24 18:16
Phenobarbital Sodium [Phenobarbital] 260 mg 0.9% Sodium Chloride 100 ml [Nss] 100 ml IV NOW
03/06/24 19:36
Lactic Acid Q6H
0.9% Sodium Chloride 1000 ml [Nss] 1,000 ml IV 100 mls/hr
0.9% Sodium Chloride [Nss (Preservative Free)] See Protocol IV PRN PRN
Acetaminophen [Tylenol] 650 mg PO Q4HPRN PRN
Bisacodyl [Dulcolax] 10 mg RECTAL [id number] PRN
Docusate W/Senna [Senokot-S] 1 tablet PO BIDPRN PRN
Enoxaparin Sodium [Lovenox] 40 mg SC QPM
FOLic ACID [Folvite] 1 mg 0.9% Sodium Chloride 50 ml [Nss] 50 ml IV DAILYPRN
Labetalol HCl [Trandate] 10 mg IV Q6HPRN PRN
Lorazepam [Ativan] 1 mg IV Q1HPRN PRN
Lorazepam [Ativan] 1 mg PO Q2HPRN PRN
Lorazepam [Ativan] 2 mg IV Q1HPRN PRN
Polyethylene Glycol Powder [Miralax] 17 grams PO DAILYPRN PRN
03/06/24 19:36
Case Management Consult Once
Case Management Consult: Other
Comment: Substance abuse counseling
DIETARY CONSULT Routine
Reason for Consult: Nutrition support, possible refeeding guidelines
Alcohol Urgent
B-Hydroxybutyrate Urgent
PTT Urgent
Phosphorus Urgent
Prothrombin Time Urgent
Urinalysis Routine
Activity As Directed
Activity Level: With Assistance
MSAS SCORE As Directed
MSAS Score 0-4: Repeat MSAS every 2 hours until 0-4 for three consecutive assessments, then every 4 hours x 48
hours.
MSAS Score 5-7: For MILD withdrawl symptoms. Repeat MSAS and RASS every 2 hours
MSAS Score 8-11: For MODERATE withdrawal symptoms. Repeat MSAS and RASS every 1 hour. Consider ICU or IMU
level of care.
MSAS Score > 11: For SEVERE withdrawal symptoms. Repeat MSAS and RASS every 1 hour. Notify provider, consider
ICU level of care.
MSAS Additional Instructions: If no improvement or no decrease in score from severe to moderate within 12
hours, consult psychiatry
MSAS Notify Provider: Notify provider if patient requires more than 10 mg of Lorazepam in eight hour period.
Precautions As Directed
Type of Precautions: Other
Seizure
Aspiration
Comment: fall precautions
Vital Signs As Directed
Frequency: Per unit guidelines
DX Deep Vein Thrombosis Video Routine
03/06/24 23:50
Comprehensive Metabolic Panel Routine
Magnesium Routine
Phosphorus Routine
03/07/24 06:00
Complete Blood Count/No Diff IN AM
Comprehensive Metabolic Panel IN AM
Magnesium IN AM
03/07/24 08:00
FOLic ACID [Folvite] 1 mg PO DAILY
Levetiracetam Injectable [Keppra] 1,500 mg IV Q12
Phenobarbital Sodium [Phenobarbital] 97.5 mg IV TID
Thiamine Injection 200 mg IV Q12
03/09/24 08:00
Phenobarbital [Luminal] 64.8 mg PO TID
03/10/24 08:00
Thiamine HCl [Vitamin B1] 100 mg PO BID
03/11/24 08:00
Phenobarbital [Luminal] 32.4 mg PO TID
Abnormal Lab Results
03/06/24 03/06/24 03/06/24
16:30 16:31 16:35
RBC 4.64 L 10^6/uL
(4.70-6.10)
MCV 94.2 H fL
(80.0-94.0)
MCH 34.7 H pg
(27.0-31.0)
Absolute Lymphs (auto) 0.8 L 10^3/uL
(1.2-3.4)
Neutrophils % 76.5 H %
(42.2-75.2)
Lymphocytes % 12.6 L %
(20.5-51.1)
VBG pH 7.02 L*
(7.32-7.43)
VBG pO2 85 H mmHg
(30-50)
VBG HCO3 9.8 L mmol/L
(22-27)
Carbon Dioxide 20 L mmol/L
(22-30)
BUN 5 L mg/dl
(9-20)
Glucose 138 H mg/dl
(70-99)
Lactic Acid 21.2 H* mmol/L
(0.7-2.0)
Magnesium 0.7 L* mg/dl
(1.6-2.3)
Total Bilirubin 2.3 H mg/dl
(0.2-1.3)
AST 360 H U/L
(17-59)
ALT 197 H U/L
(0-50)
Alkaline Phosphatase 127 H U/L
(38-126)
POC Glucose 143 H mg/dl
(70-99)
03/06/24 16:31
03/06/24 16:31
Vital Signs
Initial and Last Documented VS:
Initial Vital Signs
Pulse Resp BP
109 27 175/120
03/06/24 16:15 03/06/24 16:15 03/06/24 16:15
Last Documented Vital Signs
Temp Pulse Resp BP Pulse Ox
98.9 F 131 24 159/110 96
03/06/24 16:30 03/06/24 19:45 03/06/24 19:45 03/06/24 19:33 03/06/24 19:45
Kvnglt;Marge Bonilla PA-C - Last Filed: 03/06/24 20:28>
MDM/Problems Addressed
Differential Diagnosis Includes:
Alcohol withdrawal seizure, status epilepticus, less likely head injury, metabolic acidosis
MDM/Problems Addressed:
23-year-old male with a history of binge drinking, last drink 2 days ago with a history of alcohol withdrawal seizures presents after what sounded like a seizure at home while that was called in as a syncope I spoke with the mom and it very much
sounds like a seizure. He had a second seizure on arrival. He is tachycardic and hypertensive, sweaty and tremulous all going along with alcohol withdrawal. Patient will require admission to the hospital. He is oriented but slightly off. He is
not hallucinating but he is high risk for delirium tremens. He received several doses of benzos but was still tachycardic and hypertensive. I spoke with glue machine operator Dr. Raymond as a consult and she did recommend that he be admitted to the ICU, we can
consult neurology for regarding antiepileptics and I did speak with Dr. Morgan who recommended Keppra load at 1500 mg IV.
Patient's pH of 7.0 is likely from his seizure. This will require reassessment. He did have a lactic acidosis as well which is also likely postseizure activity. He will be given dextrose and his fluids, for presumed DKA as he is not been eating
or drinking and did have an episode of vomiting according to mom. Also thiamine, folate acid, magnesium
<Marge Bonilla PA-C - Last Filed: 03/06/24 20:28>
*Critical Care Note
Total Time (30-74mins, 75-104mins- exclusive of procedures): 30
comment:
Management of alcohol withdrawal seizure, unstable vital signs medical sales specialist consult
ED Attending Note
<Marge Bonilla PA-C - Last Filed: 03/06/24 20:28>
-
Portions of this chart may have been created with voice recognition software.� Occasional wrong word or��sound alike� substitutions may have occurred due to the inherent limitations of voice recognition software.
<Surinder Strauss MD - Last Filed: 03/06/24 18:45>
ED Attending Note
Patient seen and examined by attending physician: Yes
ED Attending Note:
Patient presents to ED for evaluation after witnessed seizure-like activities by his mother, while he was lying in bed this afternoon. Patient regained consciousness immediately afterwards. Unfortunately, shortly after arriving in ED, patient
noted to have another episode of general tonic-clonic seizure with tongue biting. Patient was again woke up shortly afterwards, and is complaining of headache only. Patient unfortunately was admitted to the hospital recently secondary to alcohol
withdrawal seizures. Patient states that he is still drinking alcohol intermittently, with his last alcohol intake 2 days ago. Denies chest pain or shortness of breath. Denies dizziness or blurred vision. Denies loss of sensation or weakness.
Denies chest pain or palpitations. Denies abdominal pain. Denies nausea. Denies recent illness. Patient states that he is currently receiving outpatient therapy for his alcohol disorder.
Physical Exam
General: moderate distress, acutely ill. afebrile. tachycardic. hypertensive
Head: nc/at. eomi
Neck: supple. normal range of motion.
Heart: tachycardic, no murmur. equal radial pulses.
Lungs: no acute respiratory distress. clear bilaterally
Abdomen: normal bowel sounds. not tender.
Neuro: alert and oriented. no focal neurological deficits
Skin: tongue - maceration with multiple superficial laceration noted over lateral aspect without active bleeding.
Psychiatric: well kept. interactive and cooperative
Extremities: no edema. no calf tenderness.
Tongue laceration, no indication for closure, as there is no large opening, but more of contusion with abrasion and slight tear.
Patient will be admitted for further evaluation and treatment, as patient has had multiple seizures. Patient given Ativan in ED.
Critical care statement: A total of 40 minutes of critical care time was provided for this patient. This includes management of unstable vital signs, evaluation of the patient at bedside, reviewing the patient's pertinent medical records, review of
old EKGs and review of pertinent medical records. This time with separate from time utilized to perform the aforementioned documented procedures
Discharge Plan
Departure
Patient Disposition: Admit
Date of Disposition: 03/06/24
Time of Disposition: 17:20
Admit to: ICU
Presentation/result/management discussed w/ accepting MD/DO: Hospitalist
Patient with high blood pressure during this ER visit?: No
Condition: Fair
Covid-19: Not Applicable
Discharge Problem:
Alcohol withdrawal seizure
Interventions
Interventions:
*Risk Screen - Suicide Last Done: 03/06/24 16:48
*General Assessment Last Done: 03/06/24 16:17
*Neglect/Abuse Screening Last Done: 03/06/24 16:52
*ED COVID-19 Vaccine History Last Done: 03/06/24 16:17
*Nursing Disposition Last Done: 03/06/24 19:48
ED- Cardiac Assessment Last Done: 03/06/24 16:48
ED- Neurological Assessment Last Done: 03/06/24 16:48
ED- Pulmonary Assessment Last Done: 03/06/24 16:48
Discharge Date and Time
Discharge Date/Time: 03/06/24 19:49
[2024-03-06 16:42] LABS: Venous Blood Gas B.E. -20.7 mmol/L (-4 to +4); Venous Blood Gas HCO3 9.8 mmol/L (22-27); Venous Blood Gas O2 Sat % 95.9 %; Venous Blood Gas pCO2 38 mmHg (35-48); Venous Blood Gas pO2 85 mmHg (30-50)
[2024-03-06 16:42] LABS: % Basophils 0.8 % (0-2); % Eosinophils 0.5 % (0-6); % Immature Granulocytes 0.3 % (0-0.5); % Lymphocytes 12.6 % (20.5-51.1); % Monocytes 9.3 % (1.7-9.3); % Neutrophils 76.5 % (42.2-75.2); Absolute Basophils 0.1 10^3/uL (0-0.2); Absolute Lymphocytes 0.8 10^3/uL (1.2-3.4); Absolute Monocytes 0.6 10^3/uL (0.1-0.6); Hematocrit 43.7 % (39.0-52.0); Hemoglobin 16.1 g/dL (13.0-18.0); Mean Corp Hgb Conc. 36.8 g/dL (33.0-37.0); Mean Corpuscular Hgb 34.7 pg (27.0-31.0); Mean Corpuscular Volume 94.2 fL (80.0-94.0); Mean Platelet Volume 9.7 fL (7.4-10.4); Nucleated Red Blood Cells % 0 % (-); Platelet Count 170 10^3/uL (130-400); Red Blood Cell Count 4.64 10^6/uL (4.70-6.10); White Blood Cell Count 6.6 10^3/uL (4.8-10.8)
[2024-03-06 16:43] LABS: Venous Blood Gas pH 7.02 (7.32-7.43)
[2024-03-06 17:01] LABS: ALT (SGPT) 197 U/L (0-50); AST (SGOT) 360 U/L (17-59); Albumin 4.3 g/dl (3.5-5.0); Alcohol 11 mg/dl; Alkaline Phosphatase 127 U/L (38-126); Blood Urea Nitrogen 5 mg/dl (9-20); Carbon Dioxide 20 mmol/L (22-30); Chloride 100 mmol/L (98-107); Glucose 138 mg/dl (70-99); Lipase 125 U/L (23-300); Magnesium 0.7 mg/dl (1.6-2.3); Potassium 3.9 mmol/L (3.5-5.1); Sodium 136 mmol/L (135-145); Total Bilirubin 2.3 mg/dl (0.2-1.3); Total Protein 6.8 g/dl (6.3-8.2); eGFR > 60.00
[2024-03-06 17:11] LABS: Lactic Acid 21.2 mmol/L (0.7-2.0)
[2024-03-06] MEDS: MAGNESIUM SULFATE 100 IV (17:18)
[2024-03-06] MEDS: D5/0.9% SODIUM CHLORIDE 1000 IV (17:18)
[2024-03-06] MEDS: KEPPRA 1500 MG IV (17:46)
[2024-03-06] MEDS: ATIVAN 1 MG IV (17:46)
[2024-03-06] MEDS: FOLVITE 50.2000000000000028 MG IV (18:07)
[2024-03-06] MEDS: THIAMINE INJECTION 255 MG IV (18:08)
--- NOTE | 2024-03-06 18:37 | HPS.HSE ---
Family Physician
-
Family Physician: Medardo Arreaga
Chief Complaint
-
Seizure
History of Present Illness
23-year-old male past medical history of seizure disorder, hypertension, GERD, alcohol use disorder multiple hospitalizations over the last year for alcohol withdrawal with associate seizure. Per patient's mother patient never stopped drinking
though had been trying to wean himself off over the past few weeks with associate withdrawal symptoms intermittent shakes nausea vomiting. Patient had a witnessed seizure by patient's mother who contacted EMS services. Seizure resolved without
postictal effects prior to EMS arrival. On ED evaluation, however patient had a 2nd seizure episode with tongue biting aborted with ativan. Hypertensive tachy but stable respiratory status on room air. Labs were significant for severe lactic
acidosis and severe hypomagnesemia. Per ED discussion with neurology patient was started on IV keppra. Admitted to ICU for further management severe alcohol withdrawal with associate seizure disorder, electrolyte abn, lactic acidosis.
Medical History
Past Medical History
Past Medical History: Reports Other (as above)
Past Surgical History: Reports Other (as above)
Social History
Tobacco: Non-smoker
Alcohol: Chronic Alcoholic
Drug: None
Personal: Single
Living: With Family
Employment: Employed
Family History
Family History: Not pertinent (reviewed)
Allergies / Home Medications
Allergies reflects when Allergies were last updated in [employer].
Home Medications with original date entered in [employer]
Allergy/Medication List:
Allergies
Allergy/AdvReac Type Severity Reaction Status Date / Time
No Known Allergies Allergy Verified 01/03/24 01:55
Home Medications
labetalol 300 mg tablet 300 mg PO BID 03/06/24
Review of Systems
-
A 12 point ROS was completed and negative except as noted: Yes
Constitutional: Reports Other (as below)
Physical Exam
Vital Signs
Vital Signs
Temp Pulse Resp BP Pulse Ox
98.9 F 137 26 143/95 99
03/06/24 16:30 03/06/24 17:15 03/06/24 17:15 03/06/24 17:00 03/06/24 16:17
Physical Exam
General: Other (as below)
Laboratory Results
-
03/06/24 16:31
03/06/24 16:31
Laboratory Results
Lactic Acid 21.2 mmol/L (0.7-2.0) H* 03/06/24 16:31
Total Bilirubin 2.3 mg/dl (0.2-1.3) H 03/06/24 16:31
AST 360 U/L (17-59) H 03/06/24 16:31
ALT 197 U/L (0-50) H 03/06/24 16:31
Alkaline Phosphatase 127 U/L (38-126) H 03/06/24 16:31
Lipase 125 U/L (23-300) 03/06/24 16:31
Impression/Plan
-
ROS
General: Denies fever chills night sweats unexpected weight loss
Neuro: Reports seizure shaking loss of consciousness tongue biting
Psych: denies depression hallucinations confusion manic episodes
Endocrine: Denies polyuria polydipsia polyphagia heat/cold intolerance
HEENT: Denies blindness visual disturbances epistaxis
Pulmonary: denies coughing hemoptysis sneezing sob dyspnea on exertion
Cardiovascular: denies chest pain palpitations leg swelling
Hematology: denies signs symptoms of anemia easy bruising/bleeding
Gastrointestinal: reports nausea vomiting
Genito-Urinary: denies retention incontinence dysuria
Musculoskeletal: denies joint pain weakness
Dermatology: denies rash laceration bruising
Physical Exam
General: No pallor, cyanosis, or jaundice.
HEENT: Throat clear. PERRLA Normocephalic tongue laceration noted
NECK: Supple. No JVD Carotid Bruits
RESPIRATORY: Lungs clear to auscultation. No crackles wheezes stridor
CVS: Sinus Tachy. No murmur, rub or gallop.
ABDOMEN: Soft, non-tender. No distension. BS+/normal.
EXTREMITIES: No peripheral cyanosis or edema.
ACCORDION TUNER: AOx3
IMPRESSION:
23-year-old male past medical history of seizure disorder, hypertension, GERD, alcohol use disorder multiple hospitalizations over the last year for alcohol withdrawal with associate seizure. Per patient's mother patient never stopped drinking
though had been trying to wean himself off over the past few weeks with associate withdrawal symptoms intermittent shakes nausea vomiting. Patient had a witnessed seizure by patient's mother who contacted EMS services. Seizure resolved without
postictal effects prior to EMS arrival. On ED evaluation, however patient had a 2nd seizure episode with tongue biting aborted with ativan. Hypertensive tachy but stable respiratory status on room air. Labs were significant for severe lactic
acidosis and severe hypomagnesemia. Per ED discussion with neurology patient was started on IV keppra. Admitted to ICU for further management severe alcohol withdrawal with associate seizure disorder, electrolyte abn, lactic acidosis.
PLAN:
#ETOH Withdrawal Sz
admit to ICU
Cooking Show Host Eval
Neuro eval
cont keppra as per neuro
Phenobarbital taper
MSAS protocol
Ativan prn
psych eval
case mgmt eval
Thiamine Folate Supplementation
Fall Aspiration Sz Precautions
#Severe Lactic Acidosis likely 2/2 Sz events
Trend lactic acid
follow up repeat VBG near midnight
stable respiratory status on room air
received 1L bolus
Cont IVF support
#Severe Hypomagnesemia
Likely from GI losses, Nausea vomiting
Monitor and Replete Aggressively
#Tongue Laceration d/t sz
minced moist diet
speech eval
#HTN
BP likely elevated d/t withdrawal
cont with alcohol withdrawal treatment
labetalol prn SBP>160 or DBP>100 w/ holding parameters HR<55
#Sinus Tachycardia
Likely d/t alcohol withdrawal, cont withdrawl treatments
Lopressor PRN
DVT ppx Lovenox
GI ppx Protonix
Full Code
Discussed with patient and patient's mother
Total Critical Care Time__60___ minutes. I was immediately available to the patient and staff. I personally examined, reviewed labs, diagnostic images/reports, interpretations, treatment plans, discussed patient care with other providers, patient
and his mother, entered orders as appropriate and documented the medical record.
[2024-03-06] MEDS: PHENOBARBITAL 104 MG IV (18:57)
[2024-03-06] MEDS: MAGNESIUM SULFATE 50 IV (19:08)
--- NOTE | 2024-03-06 20:00 | PTCARENOTE ---
Received patient from ED AAOx3, drowsy, lightheaded when standing. Tremors present, no complaints of nausea/vomiting. Sinus tach, 120s-140s, hypertensive to 140s/90s-100s. Palpable radial and pedal pulses bilaterally, normothermic. 95% on room air.
Lung sounds diminished throughout. On pureed diet, abdomen soft, round, obese. Last BM today, urinal to void. Lacy urine. Skin intact. Left prehospital IV removed, left arm #20 placed. Right arm #18 with NSS gtt ongoing per order. Labs sent, urine
sent. Mom at bedside, call ambriz within reach.
[2024-03-06] MEDS: LOVENOX 40 MG SC (20:48)
[2024-03-06 21:18] LABS: INR 1.15; PT 14.7 Sec (11.4-14.6)
[2024-03-06 21:19] LABS: APTT 23.3 Sec (23.4-35.0)
[2024-03-06 21:20] LABS: Lactic Acid 1.3 mmol/L (0.7-2.0)
[2024-03-06 21:34] LABS: Phosphorus 1.1 mg/dl (2.5-4.5)
[2024-03-06 21:51] LABS: Alcohol None Detected
[2024-03-06 21:55] LABS: B-Hydroxybutyrate 0.71 mmol/L (0.02-0.27)
[2024-03-06 22:14] LABS: Urine Albumin 2+ (Neg - Trace); Urine Bilirubin Negative (Negative); Urine Character Clear (Clear); Urine Color Yellow; Urine Glucose Negative (Negative); Urine Ketone 1+ (Negative); Urine Leukocyte Negative (Negative); Urine Nitrite Negative (Negative); Urine Occult Blood 4+ (Negative); Urine Urobilinogen Negative (Neg - 1+)
[2024-03-06 22:23] LABS: Amphetamines Negative (Negative); Barbiturates Positive (Negative); Benzodiazepines Positive (Negative); Buprenorphine Negative (Negative); Cocaine Negative (Negative); Marijuana Negative (Negative); Methadone Negative (Negative); Methamphetamines Negative (Negative); Opiates Negative (Negative); Phencyclidine Negative (Negative); Tricyclic Antidepressants Negative (Negative)
[2024-03-06 22:25] LABS: Urine Bacteria Few (Negative); Urine White Cell 0-2 /HPF (0-5)
[2024-03-06 22:38] LABS: Fentanyl, Urine Negative (Negative)
[2024-03-06] MEDS: SODIUM PHOSPHATE 255 MEQ IV (22:45)
[2024-03-07] VITALS (22 sets, daily range): BP systolic 122–163; BP diastolic 78–118; BMI 31.5
[2024-03-07 00:04] LABS: Venous Blood Gas B.E. 2.4 mmol/L (-4 to +4); Venous Blood Gas O2 Sat % 99.9 %; Venous Blood Gas pCO2 32 mmHg (35-48); Venous Blood Gas pO2 112 mmHg (30-50)
[2024-03-07 00:12] LABS: Venous Blood Gas O2 Therapy 92%
[2024-03-07 00:56] LABS: ALT (SGPT) 153 U/L (0-50); AST (SGOT) 246 U/L (17-59); Albumin 3.2 g/dl (3.5-5.0); Alkaline Phosphatase 97 U/L (38-126); Blood Urea Nitrogen 5 mg/dl (9-20); Calcium 7.5 mg/dl (8.4-10.2); Carbon Dioxide 20 mmol/L (22-30); Chloride 104 mmol/L (98-107); Estimated Creatinine Clearance > 125 ml/min; Glucose 92 mg/dl (70-99); Magnesium 1.6 mg/dl (1.6-2.3); Phosphorus 1.8 mg/dl (2.5-4.5); Potassium 2.9 mmol/L (3.5-5.1); Sodium 132 mmol/L (135-145); Total Bilirubin 2.7 mg/dl (0.2-1.3); Total Protein 5.6 g/dl (6.3-8.2); eGFR > 60.00
[2024-03-07] MEDS: OFIRMEV 100 IV (01:17)
--- NOTE | 2024-03-07 01:28 | PTCARENOTE ---
Ofirmev given for pain in tongue. Mag and potassium repleted. MSAS q4, otherwise patient assessment unchanged from previous.
[2024-03-07] MEDS: KCL 270 MEQ IV (01:38)
[2024-03-07] MEDS: MAGNESIUM SULFATE 102 GRAMS IV ×2 (01:38→05:29)
[2024-03-07] MEDS: DILAUDID 0.5 MG IV ×2 (02:13→07:46)
--- NOTE | 2024-03-07 04:11 | PTCARENOTE ---
Patient assessment unchanged from previous, call ambriz within reach.
[2024-03-07 04:17] LABS: Hematocrit 37.2 % (39.0-52.0); Hemoglobin 13.9 g/dL (13.0-18.0); Mean Corp Hgb Conc. 37.4 g/dL (33.0-37.0); Mean Corpuscular Volume 93.7 fL (80.0-94.0); Platelet Count 119 10^3/uL (130-400); Red Blood Cell Count 3.97 10^6/uL (4.70-6.10); Red Cell Dist. Width 11.9 % (11.5-14.5)
[2024-03-07 04:52] LABS: ALT (SGPT) 153 U/L (0-50); AST (SGOT) 220 U/L (17-59); Albumin 3.4 g/dl (3.5-5.0); Alkaline Phosphatase 102 U/L (38-126); Blood Urea Nitrogen 5 mg/dl (9-20); Calcium 7.8 mg/dl (8.4-10.2); Carbon Dioxide 22 mmol/L (22-30); Chloride 103 mmol/L (98-107); Estimated Creatinine Clearance > 125 ml/min; Glucose 99 mg/dl (70-99); Magnesium 1.7 mg/dl (1.6-2.3); Potassium 4.2 mmol/L (3.5-5.1); Sodium 130 mmol/L (135-145); Total Bilirubin 2.4 mg/dl (0.2-1.3); Total Protein 5.7 g/dl (6.3-8.2); eGFR > 60.00
[2024-03-07] MEDS: NSS 1000 IV (06:04)
--- NOTE | 2024-03-07 07:10 | CON.INTV ---
Consultation
Consultation Request
Date/Time Consultation Requested: 03/07/24
Date/Time Consultation Performed: 03/07/24
Performing Provider: Segundo
Reason for Consultation: ICU
Medical History
-
History of Present Illness:
Patient is a 23-year-old male with previous history of alcohol use disorder, alcohol withdrawal seizures, hypertension presenting with intermittent shakes, nausea and vomiting. He had been previously admitted for similar, most recently in December in
which he suffered alcohol withdrawal seizures as well. His mother states that he never stopped drinking following that admission. Last drink was Sunday prior to admission. He was witnessed to have a seizure at home, found by mother who contacted
EMS. His seizure resolved on arrival to ER, was received postictal. During ER evaluation, patient had a second witnessed tonic-clonic seizure episode with tongue biting and incontinence. He was given 1 dose of Ativan. Labs are notable for severe
lactic acidosis and hypomagnesemia. He was loaded with Keppra. He is now admitted to ICU for further management.
Past Medical History
Past Medical History: Other (see list below)
Social History
Tobacco: Non-smoker
Alcohol: Daily
Drug: None
Family History
Family History: Reviewed & Not Pertinent
Allergies / Home Medications
Allergies
Allergy/AdvReac Type Severity Reaction Status Date / Time
No Known Allergies Allergy Verified 01/03/24 01:55
Home Medications
�Medication �Instructions �Recorded �Confirmed �Last Taken �Type
labetalol 300 mg tablet 300 mg PO BID 03/06/24 03/06/24 03/06/24 History
Review of Systems
-
History Source: Patient
All other systems: Negative unless noted
Vitals / Labs / Diagnostic Testing
Vital Signs
Temp Pulse Resp BP Pulse Ox
98.5 F 102 24 154/110 98
03/07/24 03:10 03/07/24 06:24 03/07/24 06:24 03/07/24 06:24 03/07/24 06:24
Lab Data
03/07/24 04:07
Laboratory Results
03/06/24
20:59
PT 14.7 H
INR 1.15
APTT 23.3 L
Diagnostic Testing:
Physical Exam
-
HEENT: Normocephalic, Anicteric and Moist Mucous Membranes
Cardiovascular: S1/S2 and Regular Rhythm
Respiratory: Clear and Non-Labored Respirations
GI: Soft, Non Distended and Non Tender
Neurology: Awake, Alert, Oriented, AO x 3, No Motor Deficits and Tremors
Skin: Warm, Dry and Good Color
General: Comfortable
Assessment
-
Patient is a 23-year-old male with previous history of alcohol use disorder, alcohol withdrawal seizures, hypertension presenting with intermittent shakes, nausea and vomiting. He had been previously admitted for similar, most recently in December in
which he suffered alcohol withdrawal seizures as well. His mother states that he never stopped drinking following that admission. Last drink was Sunday prior to admission. He was witnessed to have a seizure at home, found by mother who contacted
EMS. His seizure resolved on arrival to ER, was received postictal. During ER evaluation, patient had a second witnessed tonic-clonic seizure episode with tongue biting and incontinence. He was given 1 dose of Ativan. Labs are notable for severe
lactic acidosis and hypomagnesemia. He was loaded with Keppra. He is now admitted to ICU for further management.
Acute tonic clonic seizure episode x 2, recurrent
Alcohol use disorder with withdrawal/DTs
Tongue laceration from biting tongue during seizure
Thrombocytopenia
Mild hyponatremia-serum sodium 130
Elevated LFTs including total bilirubin
Conditions present prior to admission:
Alcohol use disorder
Obesity
Obstructive sleep apnea suspected
Orthopedic surgery-left hip surgery x3
Fatty liver
HTN
GERD
Plan
Patient will be admitted to medical intensive care unit with alcohol withdrawal seizure
Neuro eval
Prior imaging negative
Keppra load, this is his 4th seizure in <1 year
FU to determine need for seizure meds in setting of ETOH use disorder with continued relapses
Continue ETOH w/d management, phenobarb taper
Psych eval
Hemodynamically stable, not on pressors
HTN history, resume meds at 1/2 dose
IV PRN as needed for tachycardia/hypertension
Monitor on telemetry
Supplemental oxygen as needed, currently stable on RA
No history of lung disease, though has high suspicion for sleep apnea
Aspiration precautions
Incentive spirometry
Head of bed elevation
Advance diet as tolerated
GERD history, can continue H2B if needed
No evidence for cirrhosis, lipase neg
Elevated LFTs likely alcoholic hepatitis, trend
If not improving, will obtain US
Creat stable, no history of renal disease
Following I/Os, UO
Replace electrolytes
CBC stable
DVT ppx, SCDs
INR 1.15
Monitor blood sugar
Insulin supplementation if needed
No history of DM
DVT prophylaxis
GI prophylaxis
Early nutrition
Early mobilization
Outpatient sleep disordered breathing/obstructive sleep apnea work-up
I had a long discussion with patient about his ETOH use disorder and recurrent admissions, strongly recommended ETOH abstinence
He is agreeable to getting help
We will follow
Diagnostic data:
CT chest 05/16/2023-no evidence for central pulmonary embolism, marked diffuse fatty infiltration of liver
CT HEAD 01/03/24- 1. Right frontal scalp soft tissue swelling.
2. No intracranial hemorrhage or displaced skull fracture.
CT head 05/16/2023-mildly limited study due to motion artifact but no gross acute intracranial abnormalities
-----
Critical Care time 65 mins -- The patient is admitted for acute critical illness for the treatment of vital organ failure and/or prevention of further life-threatening conditions. Total care includes time spent in review of history, physical exam,
medications, hemodynamic/ventilator parameters, laboratory data, imaging and discussion with house staff, pharmacy, respiratory therapy, mathematics lecturer, and nursing.
--- NOTE | 2024-03-07 07:21 | W.PN.HOSP.TC ---
Today's Communication/Plan
-
Alcohol withdrawal protocol
Phenobarbital Taper
Monitor and replete electrolytes
Blood Pressure Control
Consideration inpt ETOH rehab strongly encouraged
Assessment / Plan
Assessment / Plan
Physical Exam
General: No pallor, cyanosis, or jaundice.
HEENT: Throat clear. PERRLA Normocephalic tongue laceration noted
NECK: Supple. No JVD Carotid Bruits
RESPIRATORY: Lungs clear to auscultation. No crackles wheezes stridor
CVS: Sinus Tachy. No murmur, rub or gallop.
ABDOMEN: Soft, non-tender. No distension. BS+/normal.
EXTREMITIES: No peripheral cyanosis or edema.
HANDICAPPED TEACHER: AOx3
IMPRESSION:
23-year-old male past medical history of seizure disorder, hypertension, GERD, alcohol use disorder multiple hospitalizations over the last year for alcohol withdrawal with associate seizure. Per patient's mother patient never stopped drinking
though had been trying to wean himself off over the past few weeks with associate withdrawal symptoms intermittent shakes nausea vomiting. Patient had a witnessed seizure by patient's mother who contacted EMS services. Seizure resolved without
postictal effects prior to EMS arrival. On ED evaluation, however patient had a 2nd seizure episode with tongue biting aborted with ativan. Hypertensive tachy but stable respiratory status on room air. Labs were significant for severe lactic
acidosis and severe hypomagnesemia. Per ED discussion with neurology patient was started on IV keppra. Admitted to ICU for further management severe alcohol withdrawal with associate seizure disorder, electrolyte abn, lactic acidosis.
PLAN:
#ETOH Withdrawal Sz
ICU
Secondary English Teacher Eval appreciated
Neuro eval appreciated
cont keppra as per neuro
Phenobarbital taper
MSAS protocol
Ativan prn
psych eval appreciated
case mgmt eval appreciated
Thiamine Folate Supplementation
Fall Aspiration Sz Precautions
CT head appreciated
-There are no focal or acute intracranial abnormalities.
-There is mild cortical and cerebellar atrophy
CT cervical neck appreciated no acute abn's
#Severe Lactic Acidosis likely 2/2 Sz events
resolved
stable respiratory status on room air
IVF completed
#Hypomagnesemia
#Hypokalemia
#Hypocalcemia
Monitor and Replete Aggressively
#Tongue Laceration d/t sz
speech eval appreciated no signs of dysphagia/aspiration noted No further dysphagia therapy warranted at this time
magic mouthwash prn as per ICU
#HTN
BP likely elevated d/t withdrawal
cont with alcohol withdrawal treatment
labetalol prn SBP>160 or DBP>100 w/ holding parameters HR<55
#Sinus Tachycardia
Likely d/t alcohol withdrawal, cont withdrawl treatments
Lopressor PRN
DVT ppx Lovenox
GI ppx Protonix
Full Code
Discussed with patient at bedside and patient's mother over phone
Total Critical Care Time__50___ minutes. I was immediately available to the patient and staff. I personally examined, reviewed labs, diagnostic images/reports, interpretations, treatment plans, discussed patient care with other providers, patient
and his mother, entered orders as appropriate and documented the medical record.
Anticipated Discharge: > 48 hours
Subjective/Interval History
-
Date of Service: March 07, 2024
No acute distress resting comfortably in bed.
Objective Data
-
Labs:
Laboratory Results
03/06/24 03/06/24 03/07/24
20:59 23:54 04:07
WBC 7.0
Hgb 13.9
Hct 37.2 L
Plt Count 119 L D
PT 14.7 H
INR 1.15
APTT 23.3 L
Sodium 132 L 130 L
Potassium 2.9 L D 4.2 D
Chloride 104 103
Carbon Dioxide 20 L 22
BUN 5 L 5 L
Creatinine 0.6 L 0.6 L
Glucose 92 99
Calcium 7.5 L D 7.8 L
Total Bilirubin 2.7 H 2.4 H
AST 246 H 220 H
ALT 153 H 153 H
Alkaline Phosphatase 97 102
03/07/24
12:00
WBC
Hgb
Hct
Plt Count
PT
INR
APTT
Sodium Pending
Potassium Pending
Chloride Pending
Carbon Dioxide Pending
BUN Pending
Creatinine Pending
Glucose Pending
Calcium Pending
Total Bilirubin
AST
ALT
Alkaline Phosphatase
Vital Signs:
Vital Signs
Temp Pulse Resp BP Pulse Ox
98.5 F 102 24 154/110 98
03/07/24 03:10 03/07/24 06:24 03/07/24 06:24 03/07/24 06:24 03/07/24 06:24
I&O
03/06/24 03/07/24 03/08/24
06:59 06:59 06:59
Intake Total 2572 / 2672 100 / 100
Output Total 2049
Balance 522 / 622 100 / 100
[2024-03-07] MEDS: KEPPRA 1500 MG IV (07:32)
[2024-03-07] MEDS: PHENOBARBITAL 97.5 MG IV (07:39)
[2024-03-07] MEDS: THIAMINE INJECTION 200 MG IV ×2 (07:40→19:38)
[2024-03-07] MEDS: PROTONIX IV 40 MG IV (07:41)
[2024-03-07] MEDS: TRANDATE 10 MG IV ×2 (07:45→19:38)
[2024-03-07] MEDS: CALCIUM GLUCONATE 100 IV (07:47)
[2024-03-07] MEDS: FLUSH (NSS) 3 FLUSH IV (07:55)
[2024-03-07] MEDS: FOLVITE 1 MG PO (08:11)
--- NOTE | 2024-03-07 08:30 | PTCARENOTE ---
Rec'd pt at 0730 dozing. Awakens easily to verbal stimuli and is alert and oriented. Denies dizziness or headache. MSAS is a 4 for HR of 102 and Hand tremors. Speech is clear. Pt c/o 7/10 L tongue pain from biting his tongue yesterday during a
seizure. L side of his tongue is macerated, open, swollen. Admits to soreness with swallowing but is able to swallow water and take pills. Medicated at 0750 with Dilaudid 0.5 mg IV for 10 pain. Skin is otherwise pink wm and dry. Respirs are
shallow and sl tachypnic at times but non-labored on RA with sats of 97%. BS are clear. Monitor SR-ST. + pulses. BP diastolic running in the 109-115 range despite repositioning BP cuff- per orders Labetolol 10 mg IV given. (152/109) ABd is round
and obese with + BS. Denies nausea. Voiding yellow urine in the urinal. Capped int intact L forearm. RAC with NSS at 100 mls/hr. Calcium gluconate 2 gm rider hung at 0750 via RAC site. Pt stood at the side of the bed to void. Although sl shaky was
easily able to stand. Call ambriz in reach and plan of care reviewed with pt. Seizure pads on bed. No seizure activity noted.
--- NOTE | 2024-03-07 08:37 | PTOTSP ---
Dysphagia Evaluation
Patient with minimal oral stage differences (i.e., mildly prolonged but functional transfers) due to injury to left side of tongue after biting it during a seizure. No signs of pharyngeal dysphagia/aspiration observed.
Patient is oriented, cognition intact, and appropriate to select soft items he can tolerate from the menu at this time. Instructed him to place utensil on right side and alternate bites with sips of liquid to help keep injury to tongue clear of
food debris.
No further dysphagia therapy warranted at this time. Please reconsult as appropriate. Thank you.
--- NOTE | 2024-03-07 09:10 | PTCARENOTE ---
Dozing off and on post Dilaudid. States tongue pain is about a 4/10 post. States he is just tired as he did not get a lot of sleep last night. Repositioning himself. Speech therapy in earlier to see pt- Ok for regular diet with pt preference as to
what he wants to eat with his tongue being sore. No other changes.
--- NOTE | 2024-03-07 11:14 | PTCARENOTE ---
Pt resting most of the morning. Currently assisted oob to the bathroom- gait is steady. Denies dizziness. Voided in the toilet then did own am care. Dr. Lujan in to see pt and discuss with pt the need to stop drinking especially due to the repeated
seizures. Neurology in to see pt and updated. Pt currently resting back in bed. Able to reposition himself. Call ambriz in reach.
--- NOTE | 2024-03-07 11:52 | CM ---
CM following re: discharge planning.
Discussed in Rounds, reviewed pt's chart, met with pt.
Pt is a 23 year old male, admitted with primary dx of alcohol related seizure.
Pt reports he lives with mother in a 2SH, 2 steps to enter, single, no children. 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 Pt admitted to [facility] h/o alcohol abuse, did not go to inpatient D&A rehab, known to [facility] outpatient
D&A program. Pt is aware his mother is very upset and she will not let him to come back home till he goes to inpatient D&A rehab.
CM had a long conversation regarding pt's drinking habits, behavioral modifications techniques have been discussed, pt expressed his deep understanding to start working on his sobriety. Pt stated he will not be able to go to inpatient D&A rehab
right away, the importance to go to inpatient D&A rehab from the hospital strongly suggested and pt stated he will think about it. Pt expressed his agreement to meet with [facility] team and pt referred to [facility], spoke to CRS Jose Rafael and he will meet with
pt in an hour.
PCP: Medardo Arreaga
Pharmacy: [facility].
D/C plan: inpatient D&A rehab if pt agrees. Otherwise - outpatient D&A rehab at [facility].
CM will follow with discharge plan updates as hospitalization progresses
--- NOTE | 2024-03-07 11:56 | PTCARENOTE ---
IV fluids capped. Labs sent as ordered. No other changes.
[2024-03-07 12:17] LABS: Blood Urea Nitrogen 4 mg/dl (9-20); Calcium 8.1 mg/dl (8.4-10.2); Carbon Dioxide 25 mmol/L (22-30); Chloride 98 mmol/L (98-107); Estimated Creatinine Clearance > 125 ml/min; Glucose 91 mg/dl (70-99); Magnesium 1.5 mg/dl (1.6-2.3); Phosphorus 2.2 mg/dl (2.5-4.5); Potassium 3.1 mmol/L (3.5-5.1); Sodium 130 mmol/L (135-145); eGFR > 60.00
--- NOTE | 2024-03-07 12:30 | CON.MD ---
Consultation - Medical
-
patient seen chart reviewed. spoke with nursing and cm. this patient is very well known to me having seen him for psych eval and folllowup on two prior occasions please see notes of january 04 and sep 19 both 2023. he was admitted both times bc of a
sz in the context of etoh withdrawal which is the reason for admission this time. he left and attend [employer] [facility] for 'a few times' then stopped. he had a bad day at work and 'i passed a liquor store and thought i could have
one drink'. he had been sober for almost a month. he has since that time been drinking at least every other day. he tried to get himself sober and did not drink for three days and suffered a sz subsequently. he denies depression or anxiety as he
has on both the other occasions when he was seen by this sports writer. sleep is fair. appetite is fair. he can enjoy himself generally. he has had no suicidal thoughts. there is nothing to suggest psychosis. he had started a new job w [employer] and it
was very stressful for him.
past psych hx no psych hospitalizations. no psychotherapy. has never taken psych medications
medical hx see above re etoh wd sz. patient has htn, gerd, obesity, elevated lft's, hematuria noted macrocytosis ecg is abnormal w nl qtc patient currently on phenobarb (etoh wd) keppra (sz) msas (scores are around four)
fh etohism
substance abuse etoh as above denies other use. uds + bzp and barbs likely give in er
social hx see prior record. mom says at this point cannot come home.
mse alert ox3 cooperative speech and thought process nl no psychosis mood is neutral affect ok no si aver intell insight judgment poor
dx etoh use d.o etoh wd
plan continue w phenobarb taper msas patient MUST go to rehab in patient basis if he is to get sober. psych will work on helping him to accept this recommendation. do not feel he needs antidep or mood stabilizers at this point. hopefully mom
refusing to have him home will help him to accept in patient rx. patient should do iop after this and attend [facility] and get a sponsor.
[2024-03-07] MEDS: FIRST-MOUTHWASH BLM SUSPENSION 5 ML PO ×2 (13:08→18:13)
[2024-03-07] MEDS: POTASSIUM PHOSPHATE 259.090899999999976 MEQ IV (13:18)
[2024-03-07] MEDS: KCL ELIXIR 40 MEQ PO (13:18)
[2024-03-07] MEDS: MAGNESIUM SULFATE 100 IV (13:18)
--- NOTE | 2024-03-07 13:30 | PTCARENOTE ---
Pt taken to CT Scan for CT head and C spine. Upon returning medicated with Magic Mouthwash 5 mls at 1310 for L tongue discomfort. Manda Rod and Le updated on labs earlier and currently KCL ELixer 40 meq given. KPhos 40 meq rider hung as well as Mag
sulfate 4 gm rider via RAC IV Site. Site wnl. Assessment is otherwise unchanged. Pts mother in to visit. Call ambriz in reach. Psych in to see pt earlier.
--- NOTE | 2024-03-07 14:33 | CON.NEURO4 ---
Consultation - Neurology 4
-
CONSULTING PHYSICIAN: Dhaval Morgan MD neurology
REFERRING PHYSICIAN: Hospitalist
DICTATED BY: Dhaval Morgan MD
DATE/TIME OF REQUEST: March 06, 2024
DATE/TIME OF CONSULTATION: March 07, 2024 10 AM
Reason for Consultation: Seizure
History of Present Illness:
This is a 23year old right handed male who has presented to the hospital with seizure. He gives a history of chronic alcohol abuse over the last 5 years, GERD who has had multiple hospitalizations over the last year for alcohol withdrawal with
seizures. Per patient's mother patient never stopped drinking though had been trying to wean himself off over the past few weeks with associate withdrawal symptoms intermittent shakes nausea vomiting. Patient had a witnessed seizure by patient's
mother who contacted EMS services. Seizure resolved without postictal effects prior to EMS arrival. On ED evaluation, however patient had a 2nd seizure episode with tongue biting and was given IV Ativan. Patient was hypertensive and tachycardic
with stable respiratory status on room air. Labs were significant for severe lactic acidosis and severe hypomagnesemia.
Per ED discussion with neurology patient was started on IV Keppra. He was admitted to ICU for further management severe alcohol withdrawal with associate seizure disorder, electrolyte abnormalities and, lactic acidosis.
This morning patient is awake alert and oriented and had no further. With no motor or sensory deficits. He did bite his tongue
Past Medical History: Alcohol abuse
Surgical History: None
Family History: Contributory
Social History: Lives at home with his parents drinks half a bottle of vodka daily
Allergies: None
Home Medications: Labetalol
Review of Symptoms:
Patient denies any fever, headache, chest pain, shortness of breath, GI or symptoms.
�Per the HPI.�All systems are reviewed negative except above.
�-
Vital Signs: Temp 37.2 C Pulse 99 Resp 34 BP162/118Pulse Ox 95
Physical Exam:
The patient is afebrile, heart sounds S1 and S2 are (regular / irregular), and chest is clear to auscultation bilaterally.
Head and neck normocephalic. Bite kavita on lips and tongue
Neurologic Examination:
The patient is awake, alert and oriented x 3. (He/She) is able to follow commands and answer questions appropriately. There is no aphasia or dysarthria. On cranial nerve assessment, pupils are 3 mm bilateral, round and reactive to light and
accommodation. Visual marina are full. Extraocular movements are intact. Facial sensations are intact and bilaterally symmetrical, there is no facial asymmetry. Hearing is intact bilaterally to normal conversation volume. Tongue palate and uvula
are midline. Sternocleidomastoid strengths are full bilaterally. Motor strengths are 5/5 bilateral upper and lower extremities on medical research [place] scale. There is no drift or involuntary movement noted. Deep tendon reflexes are 2+ bilateral
upper and lower extremities and Babinski is absent bilaterally. Sensations of pain, touch, temperature and vibration are intact and bilaterally symmetrical. There was no extinction noted on double simultaneous stimulation. Coordination is intact by
finger to nose bilaterally.
Lab Results:
Neuro Imaging: CT head and C-spine is pending
Impression:
Mr. SOO BURNS is a 23 year old M who has presented to the hospital with alcohol-related seizures that has been controlled with the use of Keppra.
Recommendations:
1. Alcohol withdrawal protocol
2. Thiamine 200mg daily
3. Multivitamin
4. Keppra 500 twice a day
5. Seizure precautions
6. Ativan as needed
Discussed patient care with: Hospitalist
Vital Signs and Labs
-
Vital Signs and Labs:
Vital Signs
Temp Pulse Resp BP Pulse Ox
37.2 C 99 34 162/118 95
03/07/24 12:12 03/07/24 13:06 03/07/24 13:06 03/07/24 13:06 03/07/24 11:03
Lab Results
03/07/24 04:07
PT 14.7 Sec (11.4-14.6) H 03/06/24 20:59
INR 1.15 03/06/24 20:59
APTT 23.3 Sec (23.4-35.0) L 03/06/24 20:59
Sodium 130 mmol/L (135-145) L 03/07/24 11:51
Potassium 3.1 mmol/L (3.5-5.1) L D 03/07/24 11:51
BUN 4 mg/dl (9-20) L 03/07/24 11:51
Glucose 91 mg/dl (70-99) 03/07/24 11:51
Calcium 8.1 mg/dl (8.4-10.2) L 03/07/24 11:51
Phosphorus 2.2 mg/dl (2.5-4.5) L 03/07/24 11:51
Ur Buprenorphine Negative (Negative) 03/06/24 22:05
[2024-03-07] MEDS: TRANDATE 150 MG PO ×2 (15:07→22:15)
--- NOTE | 2024-03-07 15:15 | PTCARENOTE ---
Pts Bp has tended to run high all day depsite earlier IV Labetolol Bp's 150-160's/ 109-118 Given his 1600 po Labetolol currently. updated as pt states he takes 300 mg of Labetolol daily at home and states he typically runs high BP's. No
other changes. MSAS is a 3 for some slight observable hand tremors and HR in the 80's-90's.
[2024-03-07] MEDS: LUMINAL 97.2000000000000028 MG PO ×2 (16:22→22:15)
--- NOTE | 2024-03-07 16:30 | PTCARENOTE ---
Dozing off and on. MSAS is a 3. No changes in assessment
[2024-03-07] MEDS: LOVENOX 40 MG SC (17:44)
[2024-03-07 18:15] LABS: Blood Urea Nitrogen 3 mg/dl (9-20); Calcium 8.3 mg/dl (8.4-10.2); Carbon Dioxide 22 mmol/L (22-30); Chloride 99 mmol/L (98-107); Estimated Creatinine Clearance > 125 ml/min; Glucose 110 mg/dl (70-99); Magnesium 2.5 mg/dl (1.6-2.3); Phosphorus 3.3 mg/dl (2.5-4.5); Potassium 3.7 mmol/L (3.5-5.1); Sodium 131 mmol/L (135-145); eGFR > 60.00
[2024-03-07] MEDS: KEPPRA 500 MG PO (19:38)
--- NOTE | 2024-03-07 20:11 | PTCARENOTE ---
Received patient in bed, AAOx3, mom at bedside. Reporting pain from tongue laceration, had magic mouthwash recently. MSAS Q4. Normal sinus, 70s-80s. BP high, 160s/100s, prn labetalol given. Palpable radial and pedal pulses bilaterally. Normothermic.
Lung sounds diminished throughout, 95% on room air. Ambulates to bathroom to void independently. Two PIVs patent, WNL. Call ambriz within reach.
[2024-03-08] VITALS (12 sets, daily range): BP systolic 119–149; BP diastolic 83–116; BMI 31.1; BMI 31.2
--- NOTE | 2024-03-08 00:24 | PTCARENOTE ---
Patient assessment unchanged from previous, call ambriz within reach.
[2024-03-08] MEDS: FIRST-MOUTHWASH BLM SUSPENSION 5 ML PO ×2 (02:15→20:08)
[2024-03-08] MEDS: TRANDATE 10 MG IV (02:15)
--- NOTE | 2024-03-08 04:16 | PTCARENOTE ---
Patient assessment unchanged from previous, call ambriz within reach.
[2024-03-08 05:25] LABS: Hematocrit 40.3 % (39.0-52.0); Hemoglobin 14.4 g/dL (13.0-18.0); Mean Corp Hgb Conc. 35.7 g/dL (33.0-37.0); Mean Corpuscular Volume 98.1 fL (80.0-94.0); Mean Platelet Volume 10.3 fL (7.4-10.4); Platelet Count 131 10^3/uL (130-400); Red Blood Cell Count 4.11 10^6/uL (4.70-6.10); Red Cell Dist. Width 11.8 % (11.5-14.5); White Blood Cell Count 8.4 10^3/uL (4.8-10.8)
[2024-03-08 05:49] LABS: ALT (SGPT) 119 U/L (0-50); AST (SGOT) 154 U/L (17-59); Albumin 3.9 g/dl (3.5-5.0); Alkaline Phosphatase 105 U/L (38-126); Blood Urea Nitrogen 7 mg/dl (9-20); Calcium 8.8 mg/dl (8.4-10.2); Carbon Dioxide 20 mmol/L (22-30); Chloride 100 mmol/L (98-107); Estimated Creatinine Clearance > 125 ml/min; Glucose 83 mg/dl (70-99); Magnesium 1.7 mg/dl (1.6-2.3); Phosphorus 2.5 mg/dl (2.5-4.5); Potassium 3.9 mmol/L (3.5-5.1); Sodium 132 mmol/L (135-145); Total Bilirubin 3.3 mg/dl (0.2-1.3); Total Protein 6.4 g/dl (6.3-8.2); eGFR > 60.00
--- NOTE | 2024-03-08 07:11 | W.PN.HOSP.TC ---
Today's Communication/Plan
-
downgrade to Tele
monitor and replete electrolytes
phenobarbital taper
MSAS protocol
Assessment / Plan
Assessment / Plan
Physical Exam
General: No pallor, cyanosis, or jaundice.
HEENT: Throat clear. PERRLA Normocephalic tongue laceration noted
NECK: Supple. No JVD Carotid Bruits
RESPIRATORY: Lungs clear to auscultation. No crackles wheezes stridor
CVS: Sinus Tachy. No murmur, rub or gallop.
ABDOMEN: Soft, non-tender. No distension. BS+/normal.
EXTREMITIES: No peripheral cyanosis or edema.
MERCHANDISE FLOW TEAM LEADER: AOx3 tremor outstretched hands noted
IMPRESSION:
23-year-old male past medical history of seizure disorder, hypertension, GERD, alcohol use disorder multiple hospitalizations over the last year for alcohol withdrawal with associate seizure. Per patient's mother patient never stopped drinking
though had been trying to wean himself off over the past few weeks with associate withdrawal symptoms intermittent shakes nausea vomiting. Patient had a witnessed seizure by patient's mother who contacted EMS services. Seizure resolved without
postictal effects prior to EMS arrival. On ED evaluation, however patient had a 2nd seizure episode with tongue biting aborted with ativan. Hypertensive tachy but stable respiratory status on room air. Labs were significant for severe lactic
acidosis and severe hypomagnesemia. Per ED discussion with neurology patient was started on IV keppra. Admitted to ICU for further management severe alcohol withdrawal with associate seizure disorder, electrolyte abn, lactic acidosis.
PLAN:
#ETOH Withdrawal Sz
ICU
Project Development Coordinator Eval appreciated outpatient sleep study recommended, stable for downgrade
Neuro eval appreciated
cont keppra as per neuro
Phenobarbital taper
MSAS protocol
Ativan prn
psych eval appreciated
case mgmt eval appreciated
Thiamine Folate Supplementation
Fall Aspiration Sz Precautions
CT head appreciated
-There are no focal or acute intracranial abnormalities.
-There is mild cortical and cerebellar atrophy
CT cervical neck appreciated no acute abn's
#Severe Lactic Acidosis likely 2/2 Sz events
resolved
stable respiratory status on room air
IVF completed
#Hypomagnesemia
#Hypokalemia
#Hypocalcemia
Monitor and Replete Aggressively
#Tongue Laceration d/t sz
speech eval appreciated no signs of dysphagia/aspiration noted No further dysphagia therapy warranted at this time
magic mouthwash prn as per ICU
#HTN
#Diastolic HTN
BP likely elevated d/t withdrawal
cont with alcohol withdrawal treatment
labetalol prn SBP>160 or DBP>100 w/ holding parameters HR<55
Cardio eval requested
check US renal artery, Renin/Aldosterone ratio
#Sinus Tachycardia
Likely d/t alcohol withdrawal, cont withdrawal treatments
Lopressor PRN
DVT ppx Lovenox
GI ppx Protonix
Full Code
Medically stable for downgrade
Discussed with patient at bedside and patient's mother over phone
I spent a total of 50 minutes with the patient or on the floor. More than 50% of this time involved counseling and coordination of care.
Anticipated Discharge: 24 - 48 hours
Subjective/Interval History
-
Date of Service: March 08, 2024
seen and examined at bedside in no acute distress sitting up comfortably in bed. Reports overall feeling well. Mild tremor outstretched hands remains present. Reports poor sleep. Otherwise tolerating diet. Denies significant pain at this time.
Objective Data
-
Labs:
Laboratory Results
03/08/24
05:08
WBC 8.4
Hgb 14.4
Hct 40.3
Plt Count 131
Sodium 132 L
Potassium 3.9
Chloride 100
Carbon Dioxide 20 L
BUN 7 L
Creatinine 0.6 L
Glucose 83
Calcium 8.8
Total Bilirubin 3.3 H
AST 154 H
ALT 119 H
Alkaline Phosphatase 105
Vital Signs:
Vital Signs
Temp Pulse Resp BP Pulse Ox
99.0 F 83 29 141/104 95
03/08/24 03:17 03/08/24 06:00 03/08/24 06:00 03/08/24 05:07 03/07/24 20:57
I&O
03/07/24 03/08/24 03/09/24
06:59 06:59 06:59
Intake Total 2572 / 2672 1708.8 / 1708.8
Output Total 2049 / 2049 300 / 300
Balance 522 / 622 1408.8 / 1408.8
--- NOTE | 2024-03-08 07:13 | W.PN.INTV ---
Today's Communication / Plan
Recommendations
Doing well this AM, no new complaints
Continue phenobarb taper, ativan PRN
Neuro and psych following for ETOH and w/d seizures
Outpatient sleep follow up recommended
Can otherwise transfer to floors, we will sign off upon transfer
Assessment
-
Patient is a 23-year-old male with previous history of alcohol use disorder, alcohol withdrawal seizures, hypertension presenting with intermittent shakes, nausea and vomiting. He had been previously admitted for similar, most recently in December in
which he suffered alcohol withdrawal seizures as well. His mother states that he never stopped drinking following that admission. Last drink was Sunday prior to admission. He was witnessed to have a seizure at home, found by mother who contacted
EMS. His seizure resolved on arrival to ER, was received postictal. During ER evaluation, patient had a second witnessed tonic-clonic seizure episode with tongue biting and incontinence. He was given 1 dose of Ativan. Labs are notable for severe
lactic acidosis and hypomagnesemia. He was loaded with Keppra. He is now admitted to ICU for further management.
Acute tonic clonic seizure episode x 2, recurrent
Alcohol use disorder with withdrawal/DTs
Tongue laceration from biting tongue during seizure
Thrombocytopenia
Mild hyponatremia-serum sodium 130
Elevated LFTs including total bilirubin
Conditions present prior to admission:
Alcohol use disorder
Obesity
Obstructive sleep apnea suspected
Orthopedic surgery-left hip surgery x3
Fatty liver
HTN
GERD
Plan
Patient will be admitted to medical intensive care unit with alcohol withdrawal seizure
Neuro eval
Prior imaging negative
Keppra load, this is his 4th seizure in <1 year
FU to determine need for seizure meds in setting of ETOH use disorder with continued relapses
Continue ETOH w/d management, phenobarb taper
Psych eval ongoing
Hemodynamically stable, not on pressors
HTN history, resume meds at 1/2 dose
IV PRN as needed for tachycardia/hypertension
Monitor on telemetry
Supplemental oxygen as needed, currently stable on RA
No history of lung disease, though has high suspicion for sleep apnea
Aspiration precautions
Incentive spirometry
Head of bed elevation
Advance diet as tolerated
GERD history, can continue H2B if needed
No evidence for cirrhosis, lipase neg
Elevated LFTs likely alcoholic hepatitis, trend
If not improving, will obtain US
Creat stable, no history of renal disease
Following I/Os, UO
Replace electrolytes
CBC stable
DVT ppx, SCDs
INR 1.15
Monitor blood sugar
Insulin supplementation if needed
No history of DM
DVT prophylaxis
GI prophylaxis
Early nutrition
Early mobilization
Outpatient sleep disordered breathing/obstructive sleep apnea work-up
I had a long discussion with patient about his ETOH use disorder and recurrent admissions, strongly recommended ETOH abstinence
He is agreeable to getting help
Transfer to floors today
Diagnostic data:
CT chest 05/16/2023-no evidence for central pulmonary embolism, marked diffuse fatty infiltration of liver
CT HEAD 01/03/24- 1. Right frontal scalp soft tissue swelling.
2. No intracranial hemorrhage or displaced skull fracture.
CT head 05/16/2023-mildly limited study due to motion artifact but no gross acute intracranial abnormalities
-----
Critical Care time 35 mins -- The patient is admitted for acute critical illness for the treatment of vital organ failure and/or prevention of further life-threatening conditions. Total care includes time spent in review of history, physical exam,
medications, hemodynamic/ventilator parameters, laboratory data, imaging and discussion with house staff, pharmacy, respiratory therapy, senior java software engineer, and nursing.
Subjective Dataa
Subjective Data
Date of Service:
Date of Service: March 08, 2024
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
Subjective:
Doing well today, feels more like himself
No new complaints
Stable on RA, not on pressors
Objective Data
Data Reviewed
Vital Signs / I&O / Oxygen:
Vital Signs
Temp Pulse Resp BP Pulse Ox
99.0 F 83 29 141/104 95
03/08/24 03:17 03/08/24 06:00 03/08/24 06:00 03/08/24 05:07 03/07/24 20:57
Intake and Output
03/07/24 03/08/24 03/09/24
06:59 06:59 06:59
Intake Total 2572 / 2672 1708.8 / 1708.8
Output Total 2049 / 2049 300 / 300
Balance 522 / 622 1408.8 / 1408.8
SaO2 95
Physical Exam
General: Comfortable and Other (NAD)
HEENT: Normocephalic, Anicteric and Moist Mucous Membranes
Cardiovascular: S1-S2 and Regular Rhythm
Respiratory: Clear and Non-Labored Respirations
GI: Soft, Non Distended and Non Tender
Neurology: Awake, Alert, Oriented, AO x 3 and No Motor Deficits
Skin: Warm, Dry and Good Color
Labs/Micro/Reports
Lab Data
03/08/24 05:08
03/08/24 05:08
--- NOTE | 2024-03-08 08:00 | PTCARENOTE ---
Sitting up in the bed. He is awake and alert. Restless, runny nose, tremors and tachycardia present. In conversing with him he is not going to inpatient rehab, he wants to do it on his own and if he does agree to inpatient rehab he wants to have a
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 Supportive care offered and the importance of his health
reinforced. He verbalized his understanding. I do not believe he fully understands how dangerous detox can be on his health. Right FA and left FA iv sited both flushed and patent. Lungs CTA. +BSx4. Reports fair appetite, denies nausea. Voiding in
the BR. The alarms are annoying him. He will be place on a tele pack so that he can remain monitored while in the BR. Safe environment maintained.
[2024-03-08] MEDS: KEPPRA 500 MG PO ×2 (08:41→19:55)
[2024-03-08] MEDS: MAGNESIUM SULFATE 50 IV (08:41)
[2024-03-08] MEDS: TRANDATE 150 MG PO (08:43)
[2024-03-08] MEDS: FOLVITE 1 MG PO (08:46)
[2024-03-08] MEDS: LUMINAL 97.2000000000000028 MG PO ×3 (08:46→21:00)
[2024-03-08] MEDS: THIAMINE INJECTION IV (10:35)
--- NOTE | 2024-03-08 10:35 | TRANSFER ---
Report called to [facility] for room 411-2. Transferred with tele pack via w/c. He retained his glasses, blanket, cell phone and floor plan adjuster. He was instructed to notify his mother of his transfer.
--- NOTE | 2024-03-08 11:29 | CON.CAR ---
Addendum entered and electronically signed by Gennaro Rodriguez MD 03/08/24 13:23:
I saw and examined the patient.
The AGENCY SALES MANAGEMENT ASSISTANT's note was reviewed and I agree with the note.
Comment: Mr. Gavin is a 23 yo male with HTN (on Labetalol 300mg daily), GERD, obesity and ETOH abuse, who presents to the ER via EMS from home with a seizure. He had another seizure with tongue biting in the ER, aborted with Ativan. He is admitted
to the hospitalist service and we are consulted for HTN.
- for compliance reasons, will switch to Coreg 6.25mg BID.
- monitor BP and titrate Coreg as needed as HR and BP allow
We will sign off please call with questions/concerns.
Original Note:
Consultation
Consultation Request
Date/Time Consultation Requested: 03/08/24 9a
Date/Time Consultation Performed: 03/08/24 11a
Requesting Provider: Dr. Rod
Performing Provider: LEE Augustin for Dr. Rodriguez
Reason for Consultation: HTN
Medical History
-
Chief Complaint: etoh withdrawal seizure
History of Present Illness:
Mr. Gavin is a 23 yo male with HTN (on Labetalol 300mg daily), GERD, obesity and ETOH abuse, who presents to the ER via EMS from home with a seizure. He had another seizure with tongue biting in the ER, aborted with Ativan. He is admitted to the
hospitalist service and we are consulted for HTN. He has been attempting to quit drinking at home, weaning off ETOH, but with withdrawal symptoms. He denies any cardiac symptoms presently. He checks is BP at home, on average 120/80.
Past Medical History
Past Medical History: GERD, HTN and Other (ETOH abuse, seizures)
Social History
Tobacco: Non-Smoker
Alcohol: Chronic Alcoholic
Personal: Single
Living: With Family
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
Family History
Family History: Reviewed & Not Pertinent
Allergies / Home Medications
Allergy/AdvReac Type Severity Reaction Status Date / Time
No Known Allergies Allergy Verified 01/03/24 01:55
�Medication �Instructions �Recorded �Confirmed �Type
labetalol 300 mg tablet 300 mg PO DAILY Blood Pressure 03/06/24 03/07/24 History
Review of Systems
-
History Source: Patient
All other systems: Negative unless noted
Physical Exam
Vital Signs
Temp Pulse Resp BP Pulse Ox
98 F 100 16 144/100 98
03/08/24 10:49 03/08/24 10:49 03/08/24 10:49 03/08/24 10:49 03/08/24 10:49
Lab Results
03/08/24 05:08
03/08/24 05:08
Physical Exam
General: Well Developed, Well Nourished and No Apparent Distress
HEENT: Normocephalic, Anicteric and Moist Mucous Membranes
Respiratory: Clear and Non Labored Respirations
Cardiac: S1/S2 and Regular Rhythm
Breast: Deferred by me
GI: Soft, Non Tender, Non Distended and Normal Bowel Sounds
Rectal: Deferred by Provider
Genito-urinary: No Costovertebral Tender
Musculoskeletal: No Clubbing, No Cyanosis and No Edema
Skin: Warm and Dry
Neuro: AO x 3
Hematologic/Lymphatic: No Lymphadenopathy
Psych: Calm
Impression / Plan
-
HTN - acute on chronic.
- in the setting of acute ETOH withdrawal symptoms and acute seizure.
- asymptomatic.
- takes Labetalol 300mg QD at home and here is getting Labetalol 150mg TID.
- manual BP with large cuff taken by myself today was 140/84. please use large BP cuff.
- for compliance reasons, will switch to Coreg 6.25mg BID.
- monitor BP and titrate Coreg as needed.
ETOH abuse/withdrawal - acute on chronic.
- needs to quit drinking ETOH and remain abstinent.
- per hospitalist and psychiatry.
GERD - stable.
Obesity - weight loss reviewed.
- he states losing 35 lbs over the last several months.
Data Reviewed
-
EKG: Tracing Personally Visualized and interpreted (ST 114 bpm, inverted T waves)
CT Scan: Report Reviewed by me (head: no focal or acute intracranial abnormalities.)
Labs: Labs Reviewed by me
Old Records: Reviewed
--- NOTE | 2024-03-08 15:31 | W.PN.UPDATE ---
Update Note
Progress Note Update
Patient is doing well, no signs of withdrawal, cognitively stable. He fortunately still is interested in going to rehab which is essential for him to have a chance for recovery.
Mother who was visiting is presently sober so that helps.
I stressed to him the importance of going to inpatient rehab.
[2024-03-08] MEDS: LOVENOX SC (17:33)
[2024-03-08] MEDS: THIAMINE INJECTION 200 MG IV (19:55)
[2024-03-08] MEDS: COREG 6.25 MG PO (19:55)
[2024-03-08] MEDS: DESYREL 25 MG PO (20:57)
[2024-03-09 03:27] VITALS: BP 139/104
[2024-03-09 04:50] VITALS: BP 141/100
--- NOTE | 2024-03-09 06:31 | W.PN.HOSP.TC ---
Today's Communication/Plan
-
6PM discharge
Assessment / Plan
Assessment / Plan
Physical Exam
General: No pallor, cyanosis, or jaundice.
HEENT: Throat clear. PERRLA Normocephalic tongue laceration noted
NECK: Supple. No JVD Carotid Bruits
RESPIRATORY: Lungs clear to auscultation. No crackles wheezes stridor
CVS: Sinus Tachy. No murmur, rub or gallop.
ABDOMEN: Soft, non-tender. No distension. BS+/normal.
EXTREMITIES: No peripheral cyanosis or edema.
MATERIAL CUTTER: AOx3 tremor outstretched hands noted
IMPRESSION:
23-year-old male past medical history of seizure disorder, hypertension, GERD, alcohol use disorder multiple hospitalizations over the last year for alcohol withdrawal with associate seizure. Per patient's mother patient never stopped drinking
though had been trying to wean himself off over the past few weeks with associate withdrawal symptoms intermittent shakes nausea vomiting. Patient had a witnessed seizure by patient's mother who contacted EMS services. Seizure resolved without
postictal effects prior to EMS arrival. On ED evaluation, however patient had a 2nd seizure episode with tongue biting aborted with ativan. Hypertensive tachy but stable respiratory status on room air. Labs were significant for severe lactic
acidosis and severe hypomagnesemia. Per ED discussion with neurology patient was started on IV keppra. Admitted to ICU for further management severe alcohol withdrawal with associate seizure disorder, electrolyte abn, lactic acidosis.
PLAN:
#ETOH Withdrawal Sz
ICU
[employer] Eval appreciated outpatient sleep study recommended, stable for downgrade
Neuro eval appreciated
cont keppra as per neuro
Phenobarbital taper to convert to ativan taper on discharge
MSAS protocol
Ativan prn
psych eval appreciated
case mgmt eval appreciated
Thiamine Folate Supplementation
Fall Aspiration Sz Precautions
CT head appreciated
-There are no focal or acute intracranial abnormalities.
-There is mild cortical and cerebellar atrophy
CT cervical neck appreciated no acute abn's
Per discussion with patient's mother and neurology, patient's license has been reported to [employer] twice over the last year. Patient had his license temporarily restored while his court date remain pending. Neurology's office will report
patient's license again, patient and mother aware that he is not cleared to drive at this time- outpatient follow up with Neurology for clearance to resume driving recommended.
#Severe Lactic Acidosis likely 2/2 Sz events
resolved
stable respiratory status on room air
IVF completed
#Hypomagnesemia
#Hypokalemia
#Hypocalcemia
Monitor and Replete Aggressively
scheduled PO magnesium supplementation ordered
#Tongue Laceration d/t sz
speech eval appreciated no signs of dysphagia/aspiration noted No further dysphagia therapy warranted at this time
magic mouthwash prn as per ICU
healing
#HTN
#Diastolic HTN
BP likely elevated d/t withdrawal
cont with alcohol withdrawal treatment
labetalol prn SBP>160 or DBP>100 w/ holding parameters HR<55
Cardio eval appreciated home labetalol converted to Coreg
Renin/Aldosterone ratio result pending
low dose lisinopril started
outpt follow up with nephrology recommended
#Sinus Tachycardia
Likely d/t alcohol withdrawal, cont withdrawal treatments
Lopressor PRN
DVT ppx Lovenox
GI ppx Protonix
Full Code
Medically stable for discharge. Patient strongly advised to pursue inpt drug ETOH rehab. Patient reports that he will pursue inpt ETOH rehab after settling things at his job, reports agreeable to follow up with [facility]. Verbalized his
understanding no driving recommendation and willingness to comply.
Discussed with patient at bedside and patient's mother over phone
Total Time Preparing Discharge ___50____ minutes including examination of the patient, summary of the hospital stay, instructions for continuing care to all relevant caregivers; and preparation of discharge records, prescriptions, and referral
forms if necessary.
Anticipated Discharge: Today
Subjective/Interval History
-
Date of Service: March 09, 2024
Seen and examined at bedside in no acute distress, sitting up comfortably in bed. Reports overall feeling well. Denies new acute issues at this time. Eager to go home, has considerable concerns regarding potentially losing his job if he misses an
important meeting early in the morning tomorrow.
Objective Data
-
Labs:
Laboratory Results
03/09/24
06:28
WBC Pending
Hgb Pending
Hct Pending
Plt Count Pending
Sodium Pending
Potassium Pending
Chloride Pending
Carbon Dioxide Pending
BUN Pending
Creatinine Pending
Glucose Pending
Calcium Pending
Total Bilirubin Pending
AST Pending
ALT Pending
Alkaline Phosphatase Pending
Vital Signs:
Vital Signs
Temp Pulse Resp BP Pulse Ox
98.6 F 98 16 141/100 100
03/09/24 03:27 03/09/24 04:50 03/09/24 03:27 03/09/24 04:50 03/09/24 03:27
I&O
03/07/24 03/08/24 03/09/24
06:59 06:59 06:59
Intake Total 2572 / 2672 1708.8 / 1708.8 1200 / 1200
Output Total 2049 300 / 300
Balance 522 / 622 1408.8 / 1408.8 1200 / 1200
[2024-03-09 06:44] LABS: Hematocrit 39.1 % (39.0-52.0); Hemoglobin 14.1 g/dL (13.0-18.0); Mean Corp Hgb Conc. 36.1 g/dL (33.0-37.0); Mean Corpuscular Hgb 34.8 pg (27.0-31.0); Mean Corpuscular Volume 96.5 fL (80.0-94.0); Mean Platelet Volume 10.5 fL (7.4-10.4); Platelet Count 158 10^3/uL (130-400); Red Blood Cell Count 4.05 10^6/uL (4.70-6.10); Red Cell Dist. Width 11.9 % (11.5-14.5)
[2024-03-09 07:25] VITALS: BP 154/109
[2024-03-09] MEDS: THIAMINE INJECTION 200 MG IV (08:24)
[2024-03-09] MEDS: LUMINAL 64.7999999999999972 MG PO ×2 (08:25→15:31)
[2024-03-09] MEDS: PROTONIX 40 MG PO (08:26)
[2024-03-09] MEDS: COREG 6.25 MG PO (08:26)
[2024-03-09] MEDS: KEPPRA 500 MG PO (08:26)
[2024-03-09] MEDS: FOLVITE 1 MG PO (08:26)
--- NOTE | 2024-03-09 10:31 | CM ---
Patient seen bedside, patient confirms he has met with Joo from [facility], agreeable to meet with Joo again today. Message sent to Joo in regards to patient discharge this evening, patient agreeable to meet with Joo prior to leaving. CM will
continue to follow for all discharge planning needs.
Plan; home with resources from [facility].
[2024-03-09 10:35] LABS: ALT (SGPT) 91 U/L (0-50); AST (SGOT) 104 U/L (17-59); Albumin 3.7 g/dl (3.5-5.0); Alkaline Phosphatase 103 U/L (38-126); Blood Urea Nitrogen 12 mg/dl (9-20); Calcium 9.1 mg/dl (8.4-10.2); Carbon Dioxide 24 mmol/L (22-30); Chloride 96 mmol/L (98-107); Estimated Creatinine Clearance > 125 ml/min; Glucose 73 mg/dl (70-99); Magnesium 1.6 mg/dl (1.6-2.3); Phosphorus 3.1 mg/dl (2.5-4.5); Potassium 3.6 mmol/L (3.5-5.1); Sodium 131 mmol/L (135-145); Total Protein 6.2 g/dl (6.3-8.2); eGFR > 60.00
[2024-03-09 11:27] VITALS: BP 132/95
[2024-03-09] MEDS: ZESTRIL 2.5 MG PO (11:32)
[2024-03-09] MEDS: FIRST-MOUTHWASH BLM SUSPENSION 5 ML PO (12:04)
--- NOTE | 2024-03-09 14:40 | W.DCSUMMARY ---
Discharge Summary
Discharge Data
Date of Admission: 03/06/24
Date of Discharge: 03/09/24
-
Pending Results: Yes
Additional Pending Results:
Renin:Aldosterone Ratio
Discharge Plan
-
Patient Disposition: Home (Routine Discharge)
Discharge Diagnosis/Procedures: Alcohol Withdrawal Seizure, Alcohol Hepatitis, Hypomagnesemia, Hypertension, Tongue Laceration due to Seizure, Obesity
Condition: Fair
Diet: Regular
Activity: As tolerated
Driving Restrictions: No driving
Bathing Restrictions: None
Blood Work: Repeat CBC and CMP with primary care provider in 1 week of discharge.
Activity Restrictions/Additional Instructions:
It is highly recommended that you follow up with [facility] for further Alcohol Rehab recommendations/placement inpatient alcohol rehab.
It is strongly advised that you avoid further alcohol use as usage is likely to lead to recurrence of symptoms, potentially permanent damage/harm, and possible loss of life.
At this time, due to seizures, you are not cleared to drive. Please follow up with neurology for clearance.
Please follow up with primary care provider in 1 week of discharge, nephrology in 2 weeks of discharge, and neurology in 2-4 weeks of discharge.
Labetalol has been converted to Coreg and lisinopril for better control hypertension.
Keppra has been started for seizure prevention.
Magnesium supplementation has been started for chronically low levels.
Ativan taper has been prescribed for alcohol withdrawal:
Day 1 take 2mg Ativan three times a day, Day 2 take 2mg Ativan twice a day, then stop.
Please take medications as prescribed/recommended and follow up with primary care provider and/or other healthcare provider involved in your care for refills and/or further adjustment to your medication regimen as necessary.
Referrals:
Eddie Manzano MD [Active] - in two to four weeks
Tian Olivares DO [Active] - in two weeks
Medardo Arreaga MD [Family Provider] - in one week
Prescriptions:
New
carvedilol 6.25 mg Tablet
6.25 mg PO BID 30 Days Qty: 60 0RF
levetiracetam 500 mg Tablet
500 mg PO BID 30 Days Qty: 60 0RF
magnesium oxide 500 mg magnesium Tablet
500 mg PO DAILY 30 Days Qty: 30 0RF
lisinopril 2.5 mg Tablet
2.5 mg PO DAILY 30 Days Qty: 30 0RF
multivitamin Tablet
1 tab PO DAILY 30 Days Qty: 30 0RF
lorazepam [Ativan] 2 mg tablet
2 mg PO DIRECTED Qty: 5 0RF
Rx Instructions:
Day 1 2mg three times a day, Day 2 2mg twice a day, then stop
Discontinued
labetalol 300 mg tablet
300 mg PO DAILY
Patient Comments:
03/07 Per pt and pts mother- pt takes 300 mg daily
Discharge Orders:
Discharge Patient (As Directed); Ordered 03/09/24
Ordered By: Sandi Rod
Discharge Date and Time
Print Language: PERSIAN
[2024-03-09] MEDS: MAGNESIUM OXIDE 500 MG PO (15:31)
[2024-03-09 15:35] VITALS: BP 142/105
[2024-03-11 09:42] LABS: Aldosterone, Serum <3.0 ng/dL; Aldosterone/Renin Activ Ratio <15.0 ratio (<=25.0); Renin Activity Results 0.2 ng/mL/hr
== END 2024-03-09 18:52 | disposition home or self-care (01) | DRG 897 ==
LOC: 4 EAST ACU 18:23
PROVIDERS: ADMITTING PHYSICIAN Internal Medicine; CONSULT PHYSICIAN Internal Medicine Cardiovascular Disease; CONSULT PHYSICIAN Psychiatry & Neurology Neurology; EMERGENCY PHYSICIAN Emergency Medicine; FAMILY PHYSICIAN Family Medicine; OTHER PHYSICIAN Internal Medicine; OTHER PHYSICIAN Psychiatry & Neurology Psychiatry
PROC: HZ2ZZZZ Detoxification Services for Substance Abuse Treatment (ICD-10-PCS; 2024-03-07)
DX: F10.231 Alcohol dependence with withdrawal delirium (principal); E87.21 Acute metabolic acidosis; E87.1 Hypo-osmolality and hyponatremia; D69.6 Thrombocytopenia, unspecified; G40.409 Other generalized epilepsy and epileptic syndromes, not intractable, without status epilepticus; K70.10 Alcoholic hepatitis without ascites; K76.0 Fatty (change of) liver, not elsewhere classified; I10 Essential (primary) hypertension; E66.9 Obesity, unspecified; Z68.31 Body mass index [BMI] 31.0-31.9, adult; E83.42 Hypomagnesemia; K21.9 Gastro-esophageal reflux disease without esophagitis; S01.512A Laceration without foreign body of oral cavity, initial encounter; X58.XXXA Exposure to other specified factors, initial encounter; Y92.238 Other place in hospital as the place of occurrence of the external cause; Z79.899 Other long term (current) drug therapy
CPT/HCPCS: 70450; 72125; 80048; 80053; 80306; 80307; 81003; 81015; 82010; 82077; 82088; 82805; 82962; 83605; 83690; 83735; 84100; 84244; 85025; 85027; 85610; 85730; 92610; 93005; 96365; 96375; 99291

== ENCOUNTER 2024-05-30 09:32 | Inpatient (IN) | payer BC, SELFPAY ==
[2024-05-30] VITALS (28 sets, daily range): BP systolic 116–183; BP diastolic 97–128; BMI 31.1; BMI 30.9
--- NOTE | 2024-05-30 06:56 | ED.GENMED ---
History of Present Illness
General
Chief Complaint: Seizure
Time Seen by Provider: 05/30/24 06:54
History of Present Illness
History of Present Illness:
HPI: Pt presents w/ seizure. H/o multiple seizures related to alcohol withdrawal. Resumed drinking a month ago; last drink a few nights ago. Very mild headache. He states he has been compliant with taking oral magnesium as an outpatient.
EXAM:
GENERAL: Somewhat ill-appearing
HEENT: Dry oral mucosa, tongue bite robles noted
CARDIOVASCULAR: No murmurs, tachycardic heart rate, regular rhythm, No chest wall tenderness
PULMONARY: No respiratory distress, breath sounds are clear and equal
ABDOMEN: Soft with no peritoneal signs, no tenderness
NEUROLOGIC: Excellent strength all extremities, no coordination deficits, (+) tremors
PSYCHIATRIC: Patient currently thinks it is November, he has mild cognitive deficits
EXTREMITIES: Nontender, no edema, moves all extremities equally
SKIN: No rash, no lesions
TIME OF INITIAL ENCOUNTER: 7:05 AM
NUMBER AND COMPLEXITY OF PROBLEMS ADDRESSED AT THE ENCOUNTER
� Chronic conditions affecting care: Seizure disorder, GERD, history of alcohol abuse
� Acute Exacerbation and/or Progression of Chronic Illness: This is an acute but recurring problem
� Differential Diagnosis includes: Alcohol withdrawal seizure, electrolyte abnormality
AMOUNT AND/OR COMPLEXITY OF DATA BE REVIEWED AND ANALYZED
� I performed an independent evaluation of and my interpretation is:
EKG: Sinus 132, normal axis, nonspecific ST abnormality similar to 03/06/2024
CT:
X-rays:
Laboratory Studies: CBC unremarkable, bicarb 13, potassium 3.1, magnesium 0.9, mild transaminase elevation
Other:
� Review of other/old records: I reviewed records. The patient was admitted in September, December, and she had related to alcohol withdrawal seizure
� Clinical information was obtained by an independent historian: EMS
� Prescriptions/Medications Considered but not given:
� Further testing considered but not performed: Considered CT brain however he has had several brain CTs over the past year.
RISK OF COMPLICATIONS AND/OR MORBIDITY OR MORTALITY OF PATIENT MANAGEMENT
� Social determinants of health affecting care: Lives at home, drinks alcohol
� Discussion with other providers: Hospitalist, Dr. English, for admission at 8:09 AM
� Escalation of care including admission/observation vs risk of discharge considered: The patient has recurrence of alcohol withdrawal seizure. His CIWA score is 9. He was given benzos. His magnesium and potassium are both
very low. I have ordered IV replacement. Tachycardia persists�will plan admission to the hospital.
Past History
Past History
ED Past Medical History: GERD, HTN and Seizures
ED Past Surgical History: Orthopedic
Social History
Tobacco: Non-smoker
Alcohol: Binge drinker
Drug: None
Personal: Single
Living: with family
Employment: Employed
Phy Exam
Physical Exam
Physical Exam:
See HPI
Course
Orders/Labs/Results
Orders:
Orders
05/30/24 06:56
EKG [Electrocardiogram (*1)] Urgent
Reason for Study: Other
Other Reason for Exam: post seizure
EKG- Treatment ONCE
05/30/24 07:02
0.9% Sodium Chloride 1000 ml [Nss] 1,000 ml IV BOLUS
05/30/24 07:09
Complete Blood Count/With Diff Urgent
Comprehensive Metabolic Panel Urgent
Magnesium Urgent
05/30/24 07:11
Lorazepam [Ativan] 2 mg IV NOW STA
05/30/24 07:52
Magnesium Sulfate 4 Gram/100Ml [Magnesium Sulfate] 4 gram in 100 ml IV NOW
05/30/24 08:09
Potassium Chloride [KCl] 40 meq 0.9% Sodium Chloride 250 ml [Nss] 250 ml IV NOW
05/30/24 08:19
Magnesium Sulfate 4 Gram/100Ml [Magnesium Sulfate] 4 gram in 100 ml IV NOW
05/30/24 08:20
Potassium Chloride [KCl] 40 meq 0.9% Sodium Chloride 250 ml [Nss] 250 ml IV NOW
Abnormal Lab Results
05/30/24
07:09
MCH 34.8 H pg
(27.0-31.0)
MCHC 37.5 H g/dL
(33.0-37.0)
Absolute Monos (auto) 0.9 H 10^3/uL
(0.1-0.6)
Lymphocytes % 14.8 L %
(20.5-51.1)
Monocytes % 11.5 H %
(1.7-9.3)
Sodium 133 L mmol/L
(135-145)
Potassium 3.1 L mmol/L
(3.5-5.1)
Chloride 92 L mmol/L
(98-107)
Carbon Dioxide 13 L* mmol/L
(22-30)
BUN 8 L mg/dl
(9-20)
Glucose 113 H mg/dl
(70-99)
Magnesium 0.9 L* mg/dl
(1.6-2.3)
Total Bilirubin 2.5 H mg/dl
(0.2-1.3)
AST 304 H U/L
(17-59)
ALT 157 H U/L
(0-50)
Total Protein 6.0 L g/dl
(6.3-8.2)
05/30/24 07:09
05/30/24 07:09
Vital Signs
Initial and Last Documented VS:
Initial Vital Signs
Pulse Resp Pulse Ox
131 28 96
05/30/24 06:58 05/30/24 06:58 05/30/24 06:58
Last Documented Vital Signs
Temp Pulse Resp BP Pulse Ox
98.7 F 115 16 157/116 96
05/30/24 07:00 05/30/24 08:00 05/30/24 08:00 05/30/24 08:00 05/30/24 08:00
*Critical Care Note
Total Time (30-74mins, 75-104mins- exclusive of procedures): 45min
comment:
Patient was persistently tachycardic, was given IV fluids, was emergently given Ativan IV and was also emergently given magnesium and potassium given the critically low magnesium of 0.9.
ED Attending Note
-
Portions of this chart may have been created with voice recognition software.� Occasional wrong word or��sound alike� substitutions may have occurred due to the inherent limitations of voice recognition software.
Discharge Plan
Departure
Patient Disposition: Admit
Date of Disposition: 05/30/24
Time of Disposition: 08:08
Presentation/result/management discussed w/ accepting MD/DO: Hospitalist
Discharge Problem:
Alcohol withdrawal seizure
Prescriptions:
No Action
carvedilol 6.25 mg Tablet
6.25 mg PO BID 30 Days Qty: 60 0RF
levetiracetam 500 mg Tablet
500 mg PO BID 30 Days Qty: 60 0RF
magnesium oxide 500 mg magnesium Tablet
500 mg PO DAILY 30 Days Qty: 30 0RF
lisinopril 2.5 mg Tablet
2.5 mg PO DAILY 30 Days Qty: 30 0RF
zinc sulfate 50 mg zinc (220 mg) Tablet
50 mg PO DAILY
Referrals:
Medardo Arreaga MD [Family Provider] -
Interventions
Interventions:
*Risk Screen - Suicide Last Done: 05/30/24 07:00
*General Assessment Last Done: 05/30/24 07:00
*Neglect/Abuse Screening Last Done: 05/30/24 07:00
ED- Fall Risk Assessment Last Done: 05/30/24 07:00
*ED COVID-19 Vaccine History Last Done: 05/30/24 07:00
ED- Cardiac Assessment Last Done: 05/30/24 07:00
ED- Neurological Assessment Last Done: 05/30/24 07:00
ED- Pulmonary Assessment Last Done: 05/30/24 07:00
Discharge Date and Time
Print Language: TELUGU
[2024-05-30] MEDS: ATIVAN 2 MG IV (07:20)
[2024-05-30] MEDS: NSS 1000 IV ×3 (07:21→20:39)
[2024-05-30 07:44] LABS: AST (SGOT) 304 U/L (17-59); Albumin 3.8 g/dl (3.5-5.0); Alkaline Phosphatase 107 U/L (38-126); Blood Urea Nitrogen 8 mg/dl (9-20); Calcium 9.1 mg/dl (8.4-10.2); Carbon Dioxide 13 mmol/L (22-30); Chloride 92 mmol/L (98-107); Estimated Creatinine Clearance > 125 ml/min; Glucose 113 mg/dl (70-99); Magnesium 0.9 mg/dl (1.6-2.3); Potassium 3.1 mmol/L (3.5-5.1); Sodium 133 mmol/L (135-145); Total Bilirubin 2.5 mg/dl (0.2-1.3); eGFR > 60.00
[2024-05-30 07:54] LABS: % Basophils 0.6 % (0-2); % Eosinophils 0.3 % (0-6); % Immature Granulocytes 0.4 % (0-0.5); % Lymphocytes 14.8 % (20.5-51.1); % Monocytes 11.5 % (1.7-9.3); % Neutrophils 72.4 % (42.2-75.2); Absolute Basophils 0.1 10^3/uL (0-0.2); Absolute Lymphocytes 1.2 10^3/uL (1.2-3.4); Absolute Monocytes 0.9 10^3/uL (0.1-0.6); Absolute Neutrophils 5.7 10^3/uL (1.4-6.5); Hematocrit 44.8 % (39.0-52.0); Hemoglobin 16.8 g/dL (13.0-18.0); Mean Corp Hgb Conc. 37.5 g/dL (33.0-37.0); Mean Corpuscular Hgb 34.8 pg (27.0-31.0); Mean Corpuscular Volume 92.8 fL (80.0-94.0); Mean Platelet Volume 10.4 fL (7.4-10.4); Nucleated Red Blood Cells % 0 % (-); Platelet Count 133 10^3/uL (130-400); Red Blood Cell Count 4.83 10^6/uL (4.70-6.10); Red Cell Dist. Width 12.5 % (11.5-14.5); White Blood Cell Count 7.8 10^3/uL (4.8-10.8)
[2024-05-30 07:59] LABS: ALT (SGPT) 157 U/L (0-50)
--- NOTE | 2024-05-30 08:21 | EDRN ---
the pt pressed the call ambriz and this RN entered the pts room, the pt stated that he needed to urinate, the pt was able to ambulate to the bathroom and back to the stretcher with no issues, no c/o dizziness, no c/o lightheadedness, no c/o chest pain
and no c/o SOB, the pt is now resting in the stretcher in the lowest position, side rails up x2, call ambriz within reach, HOB elevated, no s/s of distress, still sinus tachy in the 120's, RA Sp02 98%, will continue to monitor the pt closely
--- NOTE | 2024-05-30 08:47 | HPS.HSE ---
Family Physician
-
Family Physician: Medardo Arreaga
Chief Complaint
-
EtOH withdrawal seizure
History of Present Illness
23-year-old male with alcohol use complicated by alcohol withdrawal seizures, hypertension that presented to the ED this morning following a seizure event. He has known seizure in the context of alcohol withdrawal. Was sober reportedly for a while
though resumed drinking alcohol about a month ago. States his last drink was a couple of nights ago. Is on chronic antiepileptic regimen as well as magnesium supplementation which he states he is compliant with. He also has a history of
chronically elevated LFTs, no previous CT or ultrasound to assess liver parenchyma.
Upon arrival to the ED he was hypertensive and tachycardic though otherwise stable and on room air without fever. ED labs showed sodium 133, potassium 3.1, bicarb 13, magnesium 0.9, T. bili 2.5, AST 304, ALT 157, albumin 3.8 with normal ALP.
Initial CIWA score was 9. Was given 2 mg of Ativan and 4 g of magnesium sulfate.
Upon speaking with the patient he was calm, had no acute complaints. He states that he was compliant with his Keppra though recently started taking it only once daily in the morning as he was running low. States that he was standing next to his
bed yesterday evening when he had his seizure event. Denies current chest pain, shortness of breath, fevers or chills, nausea or vomiting, abnormal bleeding or bruising, urinary issue, paresthesias or weakness.
Medical History
Past Medical History
Past Medical History: Reports GERD, HTN, Seizures and Other (ETOH)
Past Surgical History: Reports Orthopedic (Left hip surgery x 3 for slipped femoral capital epiphysis)
Social History
Tobacco: Non-smoker
Alcohol: Daily
Drug: None
Family History
Family History: Not pertinent
Allergies / Home Medications
Allergies reflects when Allergies were last updated in [facility].
Home Medications with original date entered in [facility]
Allergy/Medication List:
Allergies
Allergy/AdvReac Type Severity Reaction Status Date / Time
No Known Allergies Allergy Verified 01/03/24 01:55
Home Medications
carvedilol 6.25 mg tablet 6.25 mg PO BID 30 days #60 tabs 03/09/24
levetiracetam 500 mg tablet 500 mg PO BID 30 days #60 tabs 03/09/24
lisinopril 2.5 mg tablet 2.5 mg PO DAILY 30 days #30 tabs 03/09/24
magnesium oxide 500 mg PO DAILY 30 days #30 tabs 03/09/24
zinc sulfate 50 mg zinc (220 mg) tablet 50 mg PO DAILY 05/30/24
Review of Systems
-
History Source: Patient
A 12 point ROS was completed and negative except as noted: Yes
Constitutional: Reports No Symptoms
EENT: Reports No Symptoms
Respiratory: Reports No Symptoms
Cardiac: Reports No Symptoms
Abdomen/GI: Reports No Symptoms
: Reports No Symptoms
Musculoskeletal: Reports No Symptoms
Skin: Reports No Symptoms
Neurological: Reports No Symptoms
Endocrine: Reports No Symptoms
Hematologic/Lymphatic: Reports No Symptoms
Psych: Reports No Symptoms
Physical Exam
Vital Signs
Vital Signs
Temp Pulse Resp BP Pulse Ox
98.7 F 116 16 170/128 97
05/30/24 07:00 05/30/24 08:17 05/30/24 08:00 05/30/24 08:21 05/30/24 08:17
Physical Exam
General: No Apparent Distress, Comfortable, Conversant and Obese
HEENT: NormoCephalic, Anicteric, Moist mucous membranes, Atraumatic, PERRLA (Dilated pupils at baseline), Nose Appears Normal and Ears Appear Normal; No Thyromegaly or Nodules
Respiratory: Clear and Non Labored Respirations; No Wheezes, Rales, Rhonchi or Accessory Resp Muscle Use
Cardiac: S1/S2, Regular Rhythm and Tachycardia; No Murmur, Rub, Gallop, Peripheral Edema or JVD
GI: Soft, Non Tender, Non Distended, Normal Bowel Sounds and No Hepatosplenomegaly
Musculoskeletal: No Clubbing, No Cyanosis, No Edema and Other (No Gross deformity)
Skin: Warm and Dry; No Rash or Jaundice
Neuro: AO x 3, Nonfocal/grossly intact and Cranial Nerves Intact; No Tremors
Hematologic/Lymphatic: No Lymphadenopathy
Psych: Calm
Laboratory Results
-
05/30/24 07:09
05/30/24 07:09
Laboratory Results
Total Bilirubin 2.5 mg/dl (0.2-1.3) H 05/30/24 07:09
AST 304 U/L (17-59) H 05/30/24 07:09
ALT 157 U/L (0-50) H 05/30/24 07:09
Alkaline Phosphatase 107 U/L (38-126) 05/30/24 07:09
Data Reviewed
-
Lab Data: Labs Reviewed by me, Discussed with Physician (Medical Staff Manager) and Discussed with Patient
Impression/Plan
-
#Alcohol withdrawal seizures
#Alcohol abuse
-Extensive history of alcohol related seizures, on Keppra regimen outpatient
-Was sober for a mild though resumed drinking a month ago, was taking Keppra once daily as he was almost out
-Last drink was a couple of days prior to coming into the hospital
-Will defer against phenobarbital for now as he does seem improved after Ativan
-Will start MSAS with as needed benzos, low threshold to start phenobarbital taper
-Resume Keppra at 500 mg twice daily dosing and encourage compliance
-Start IV thiamine and folate daily
-Start supportive IV fluids
-neurology and ICU consult
#Elevated LFTs
-Suspicion is this is alcohol related hepatic steatosis, no imaging available per chart
-Presented with transaminases in the 200-300 range with alcohol-induced pattern, T. bili 2.5 consistent with previous lab
-Will order RUQ ultrasound to assess
-Trend daily LFTs, consider GI consult if worsen
#Electrolyte deficiency
-Presented with hypomagnesemia and hypokalemia, with mag 0.9
-In the context of poor oral intake, nausea and vomiting, chronic alcoholism
-Status post repletion of Mg sulfate 4 g in the ED, and 40 mEq KCl
-Will continue to monitor BMP closely and replete as needed
#High anion gap metabolic acidosis
-Likely component of lactic acidosis following seizure, intravascular depletion
-On arrival serum bicarbonate was 13, anion gap 28
-Expect that this will improve with IV fluids and supportive care
-Will trend BMP, known need for bicarbonate drip as of now
#Hypertension -- systolic and diastolic
-No known history of hypertensive cardiovascular disease, likely related to withdrawal
-Home medications include carvedilol 6.25 mg twice daily, lisinopril 2.5 mg daily
-Will continue with home regimen, hydralazine as needed
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
-States has had multiple surgeries in the past, has screws and hardware in the left hip
DVT prophylaxis: Lovenox
Diet: Regular
CODE STATUS: Full code
Disposition: Admit to ICU
[2024-05-30] MEDS: KCL 270 MEQ IV ×2 (09:15→16:00)
[2024-05-30] MEDS: MAGNESIUM SULFATE 100 IV (09:24)
--- NOTE | 2024-05-30 09:33 | EDRN ---
the pt is resting in stretcher in the lowest position, side rails up x2, call ambriz within reach, HOB elevated, no s/s of distress, the pt is calm, pleasant, and cooperative, the pt is currently still sinus tachy in the 120's, last BP 165/110 (126),
RA Sp02 95%, no c/o chest pain, no c/o SOB, Potassium and magnesium hung and running via Left Hand PIV, no c/o pain or burning at the site, the pt was updated on plan of care, the pt denies needing anything at this time, no seizure activity has been
noted, the pts girlfriend is currently at the pts bedside, will continue to monitor the pt closely
--- NOTE | 2024-05-30 10:14 | EDRN ---
this RN called the receiving nurse Sylwia PENALOZA and gave verbal report
--- NOTE | 2024-05-30 10:24 | CON.INTV ---
Consultation
Consultation Request
Date/Time Consultation Requested: 05/30/2024-11 AM
Date/Time Consultation Performed: 05/30/2024-11:30 AM
Requesting Provider: Hospitalist
Performing Provider: Dr. Chou
Reason for Consultation: Alcohol withdrawal seizures
Medical History
-
Chief Complaint: Seizures
History of Present Illness:
23-year-old male alcoholic with history of DTs and seizures with withdrawal, hypertension who presented with alcohol withdrawal seizure-envelope press operator consulted for seizures/alcohol withdrawal/critical care management 05/30/2024.
Past Medical History
Past Medical History: None (Alcohol use disorder. Alcohol withdrawal seizures. Hypertension. GERD. Left hip surgery x 3.)
Social History
Tobacco: Non-smoker
Alcohol: Daily
Drug: None
Occupational Exposures: No known asbestos exposure
Environmental Exposures: No known tuberculosis exposure
Family History
Family History: Reviewed & Not Pertinent
Allergies / Home Medications
Allergies
Allergy/AdvReac Type Severity Reaction Status Date / Time
No Known Allergies Allergy Verified 01/03/24 01:55
Home Medications
�Medication �Instructions �Recorded �Confirmed �Last Taken �Type
carvedilol 6.25 mg tablet 6.25 mg PO BID 30 days #60 tabs 03/09/24 05/30/24 05/29/24 Rx
levetiracetam 500 mg tablet 500 mg PO BID 30 days #60 tabs 03/09/24 05/30/24 05/29/24 Rx
lisinopril 2.5 mg tablet 2.5 mg PO DAILY 30 days #30 tabs 03/09/24 05/30/24 05/29/24 Rx
magnesium oxide 500 mg PO DAILY 30 days #30 tabs 03/09/24 05/30/24 05/29/24 Rx
zinc sulfate 50 mg zinc (220 mg) 50 mg PO DAILY 05/30/24 05/30/24 05/29/24 History
tablet
Review of Systems
-
Unable to Obtain full review of systems at this time due to: Other (Per HPI)
Vitals / Labs / Diagnostic Testing
Vital Signs
Temp Pulse Resp BP Pulse Ox
98.7 F 124 16 162/109 96
05/30/24 07:00 05/30/24 09:52 05/30/24 09:36 05/30/24 09:52 05/30/24 09:52
Lab Data
05/30/24 07:09
Diagnostic Testing:
Physical Exam
-
Exam:
Well-nourished and well-developed in no apparent distress
HEENT-atraumatic, normocephalic
Neck-supple, no JVD, no bruit
Heart-regular rate and rhythm-no murmurs, rubs or gallops
Chest-clear to auscultation, no wheezes, crackles
Back-no tenderness
Abdomen-soft, nontender, nondistended, no hepatosplenomegaly
Extremities-no cyanosis, clubbing, edema and good peripheral pulses
Integument-intact, no rashes, lesions or ecchymosis
Neurology-alert and oriented, nonfocal motor and sensory exam
Assessment
-
[id number] male alcoholic with history of DTs and seizures with withdrawal, hypertension who presented with alcohol withdrawal seizure-envelope press operator consulted for seizures/alcohol withdrawal/critical care management 05/30/2024.
Alcohol withdrawal seizures
Elevated LFTs
Hypokalemia
Hypomagnesemia
Metabolic acidosis with anion gap
Hypertension
Conditions present prior to admission:
Hospitalization/-alcohol use disorder and hypertension
Recent hospitalization and discharged 03/09/2024-alcohol withdrawal seizures, alcohol hepatitis, hypomagnesemia, hypertension and tongue laceration due to seizure in addition to obesity
Alcohol use disorder.
Alcohol withdrawal seizures.
History of seizures-on Keppra
History of thrombocytopenia
Hypertension.
GERD.
Fatty liver
Obstructive sleep apnea suspected
Left hip surgery x 3.
Plan
Patient will be admitted to medical intensive care unit with alcohol intoxication and significant risk for alcohol withdrawal syndrome
Supplemental oxygen as needed
Aspiration precautions
Incentive spirometry
Head of bed elevation
Significantly hypertensive
Antihypertensives as needed
Resume home meds
Follow MSAS
Seizure precautions
Alcohol withdrawal treatment protocol will continue
Supplements glucose and thiamine to prevent Wernicke's encephalopathy
Supplement multivitamins and folate
Replete deficiencies and glucose, potassium, magnesium and phosphorus
Benzodiazepines as needed-diazepam or lorazepam
Precedex drip if needed
If refractory DTs then would consider Phenobarbital 130-260 mg IV every 20 minutes
Follow LFTs
Abdominal ultrasound-pending
Replace electrolytes including potassium and magnesium
Alcohol cessation counseling
Consider psychiatry evaluation
Consider rehabilitation-he was recently at a rehab 2 months ago
DVT prophylaxis
GI prophylaxis
Early nutrition
Early mobilization
Outpatient sleep disordered breathing/sleep apnea [id number] was advised to follow-up which he never did she was instructed to follow-up again
Critical care statement: A total of 55 minutes of critical care time was provided for this patient today. This includes management of unstable vital signs, treatment for and prevention of alcohol withdrawal, evaluation of the patient at bedside,
reviewing the patient's pertinent medical records including radiographs, microbiology, laboratory evaluations, and discussion with primary team, consultants, pharmacy, nutrition, physical therapy, case management, charge nurse, critical care
nursing, and respiratory therapy.
Diagnostic data:
CT chest 05/16/2023-no evidence for central pulmonary embolism, marked diffuse fatty infiltration of liver
CT head 03/07/2024-no focal or acute intracranial abnormalities
Data Reviewed
-
EKG: Report reviewed by me
Radiology: Report reviewed by me
CT Scan: Report reviewed by me
Labs: Labs reviewed by me
Old Records: Reviewed
Critical Care Time (in minutes): 55
--- NOTE | 2024-05-30 10:27 | EDRN ---
the pt is being taken to ultrasound
--- NOTE | 2024-05-30 11:04 | EDRN ---
the pt is back in room from ultrasound, pt placed back on monitor, no s/s of distress, VS WNL, will continue to monitor the pt closely
[2024-05-30 11:43] LABS: Alcohol None Detected
[2024-05-30 12:10] LABS: Amphetamines Negative (Negative); Barbiturates Negative (Negative); Benzodiazepines Positive (Negative); Buprenorphine Negative (Negative); Cocaine Negative (Negative); Marijuana Negative (Negative); Methadone Negative (Negative); Methamphetamines Negative (Negative); Opiates Negative (Negative); Phencyclidine Negative (Negative); Tricyclic Antidepressants Negative (Negative)
[2024-05-30 12:35] LABS: Fentanyl, Urine Negative (Negative)
[2024-05-30] MEDS: ZESTRIL 2.5 MG PO (12:45)
[2024-05-30] MEDS: FOLVITE 1 MG PO (12:46)
[2024-05-30] MEDS: COREG 6.25 MG PO ×2 (12:46→20:28)
--- NOTE | 2024-05-30 13:00 | PTCARENOTE ---
Additional assessment from admission- pt with macerated wound on his tongue on the R side. States he must have bit his tongue when he seized
--- NOTE | 2024-05-30 13:00 | PTCARENOTE ---
Rec'd pt at 1150 via stretcher from the ED -s/p abd US. Rec'd pt awake alert and oriented. Relayed how he had gone to [facility] for ETOH rehab and was doing good but then about 3 or so weeks ago passed a liquor store and started drinking again.
Mostly per pt Vodka or [place] 2-4 times a week. Last drink he thinks was Sunday or Sunday. Per pt Woke up last pm and felt off and told his mom he thought he may have had a seizure, then this am mother states she heard a thump and found him in
the shower post seizure. Currently pt with hand /arm sl tremors. No c/o headache or dizziness. QUINTERO. Speech is clear. Skin is pink wm and dry. Pt with abrasions on R lower leg and L knee- see documentation. MSAS is a 4 for HR and tremors. Respirs
are unlabored on RA with sats of 98%. BS are clear. Monitor ST. + pulses. No edema. BP elevated in the ED and continues to be elevated. (was elevated last admission in February). Pt did not take any of his antihypertensives today. Pharmacy updated MD
and Coreg and Lisinopril given at 1245 as ordered. Abd is round and soft with + BS. Denies nausea. Taking water and applejuice without diff. Stood and voided on arrival to ICU 500 mls of yellow urine. Urine studies sent. Arrived with Mag and KCL
riders infusing via L hand IV site. NSS hung at 100 ml/hr via L hand site. Complete CHG bath given. Pt able to reposition himself. Plan of care reviewed with pt. Call ambriz in reach. Seizure pads on the bed. Pts family in to visit and updated.
[2024-05-30] MEDS: THIAMINE INJECTION 200 MG IV (14:08)
--- NOTE | 2024-05-30 14:30 | PTCARENOTE ---
Remains resting. KCL rider finishing up- running slower due to burning earlier. Labs sent. Family at the Bedside. MSAS is a 4 for HR and mild hand tremors. Pt overall states he feels a little better. Bp improved somewhat post Coreg and Lisinopril.
Call ambriz in reach.
[2024-05-30 14:47] LABS: APTT 26.2 Sec (23.4-35.0); INR 1.07; PT 13.7 Sec (11.4-14.6)
[2024-05-30 15:05] LABS: Blood Urea Nitrogen 7 mg/dl (9-20); Calcium 8.2 mg/dl (8.4-10.2); Carbon Dioxide 20 mmol/L (22-30); Chloride 94 mmol/L (98-107); Estimated Creatinine Clearance > 125 ml/min; Glucose 104 mg/dl (70-99); Magnesium 1.8 mg/dl (1.6-2.3); Potassium 3.2 mmol/L (3.5-5.1); Sodium 130 mmol/L (135-145); eGFR > 60.00
[2024-05-30 15:21] LABS: % Basophils 0.4 % (0-2); % Eosinophils 0.1 % (0-6); % Immature Granulocytes 0.2 % (0-0.5); % Lymphocytes 12.6 % (20.5-51.1); % Monocytes 10.7 % (1.7-9.3); Absolute Lymphocytes 1.1 10^3/uL (1.2-3.4); Absolute Monocytes 0.9 10^3/uL (0.1-0.6); Absolute Neutrophils 6.3 10^3/uL (1.4-6.5); Hemoglobin 14.9 g/dL (13.0-18.0); Mean Corp Hgb Conc. 37.3 g/dL (33.0-37.0); Mean Corpuscular Hgb 33.6 pg (27.0-31.0); Mean Corpuscular Volume 90.3 fL (80.0-94.0); Mean Platelet Volume 10.6 fL (7.4-10.4); Nucleated Red Blood Cells % 0 % (-); Platelet Count 98 10^3/uL (130-400); Red Blood Cell Count 4.43 10^6/uL (4.70-6.10); Red Cell Dist. Width 12.6 % (11.5-14.5); White Blood Cell Count 8.3 10^3/uL (4.8-10.8)
--- NOTE | 2024-05-30 15:30 | PTCARENOTE ---
ETHAN mcclain completed at 1510. Pt resting currently. Manda Chou and Matt updated on labs
--- NOTE | 2024-05-30 16:15 | PTCARENOTE ---
Dozing off at intervals- states he is just tired. MSAS is a 3. Readily awakens and is alert and oriented. Denies discomfort. Per MD order 2nd KCL 40 meq rider hung via L hand. Will run at 50 ml/hr to limit burning. L hand site wnl. Call ambriz in
reach.
[2024-05-30 16:20] LABS: ALT (SGPT) 136 U/L (0-50); AST (SGOT) 212 U/L (17-59); Albumin 3.2 g/dl (3.5-5.0); Alkaline Phosphatase 99 U/L (38-126); Total Bilirubin 1.7 mg/dl (0.2-1.3); Total Protein 5.4 g/dl (6.3-8.2)
--- NOTE | 2024-05-30 18:00 | PTCARENOTE ---
Dozing off and on when not disturbed. Did not want anything currently for dinner. Ate some food from home earlier but limited appetite. Stood to void- mickey/yellow urine. Refused Lovenox but is repositioning himself in bed. No complaints offered.
Overall BP is improved as documented. No seizure activity noted. KCL rider infusing. Call ambriz in reach
[2024-05-30] MEDS: KEPPRA 500 MG PO (20:28)
--- NOTE | 2024-05-30 21:00 | PTCARENOTE ---
Received patient in bed AAOx3 and able to make his needs known. Plan of care for the shift reviewed with the patient. MSAS 4 for hand tremors and HR. No seizure activity noted. Sinus rhythm to sinus tachy on the monitor. Breath sounds are clear on
room air. SpO2 at 97%. + bowel sounds. The patient ambulated to the bathroom with standby assist. Gait steady. HR 130s post bathroom ambulation, then settled once the patient sat back in bed. The patient ate 50% of his dinner brought in by his
parents. Declined brushing his teeth and will complete it at a later time, per the patient. Normal saline at 100 ml/hr. KCL at 50 ml/hr. All needs are met at this time. Call ambriz and personal belongings are within reach.
[2024-05-31] VITALS (18 sets, daily range): BP systolic 114–182; BP diastolic 80–129; BMI 31.2; BMI 31.4
--- NOTE | 2024-05-31 01:28 | PTCARENOTE ---
Patient reassessed. Remains AAOx4 and able to make his needs known. Pt ambulates to the bathroom. Sinus rhythm on the monitor. IVF ongoing. No changes from the previous assessment. MSAS as documented.
[2024-05-31 03:55] LABS: % Basophils 0.5 % (0-2); % Eosinophils 0.9 % (0-6); % Immature Granulocytes 0.4 % (0-0.5); % Lymphocytes 19.6 % (20.5-51.1); % Monocytes 13.2 % (1.7-9.3); % Neutrophils 65.4 % (42.2-75.2); Absolute Eosinophils 0.1 10^3/uL (0-0.7); Absolute Lymphocytes 1.1 10^3/uL (1.2-3.4); Absolute Monocytes 0.7 10^3/uL (0.1-0.6); Absolute Neutrophils 3.6 10^3/uL (1.4-6.5); Hematocrit 36.9 % (39.0-52.0); Hemoglobin 13.6 g/dL (13.0-18.0); Mean Corp Hgb Conc. 36.9 g/dL (33.0-37.0); Mean Corpuscular Hgb 33.8 pg (27.0-31.0); Mean Corpuscular Volume 91.8 fL (80.0-94.0); Mean Platelet Volume 10.9 fL (7.4-10.4); Nucleated Red Blood Cells % 0 % (-); Platelet Count 94 10^3/uL (130-400); Red Blood Cell Count 4.02 10^6/uL (4.70-6.10); Red Cell Dist. Width 12.9 % (11.5-14.5); White Blood Cell Count 5.5 10^3/uL (4.8-10.8)
[2024-05-31] MEDS: NSS 1000 IV ×2 (06:42→16:06)
--- NOTE | 2024-05-31 07:02 | W.PN.INTV ---
Today's Communication / Plan
Recommendations
Alcohol withdrawal treatment protocol
Ativan as needed
Thiamine and multivitamins
Could be transferred out of ICU-call pulmonary if respiratory issues arise
Outpatient sleep disordered breathing follow-up
Assessment
-
[id number] male alcoholic with history of DTs and seizures with withdrawal, hypertension who presented with alcohol withdrawal seizure-salad bar clerk consulted for seizures/alcohol withdrawal/critical care management 05/30/2024.
Alcohol withdrawal seizures
Elevated LFTs
Hypokalemia
Hypomagnesemia
Metabolic acidosis with anion gap
Hypertension
Conditions present prior to admission:
Hospitalization/-alcohol use disorder and hypertension
Recent hospitalization and discharged 03/09/2024-alcohol withdrawal seizures, alcohol hepatitis, hypomagnesemia, hypertension and tongue laceration due to seizure in addition to obesity
Alcohol use disorder.
Alcohol withdrawal seizures.
History of seizures-on Keppra
History of thrombocytopenia
Hypertension.
GERD.
Fatty liver
Obstructive sleep apnea suspected
Left hip surgery x 3.
Plan
Patient has improved hemodynamically-not requiring Ativan
Supplemental oxygen as needed-currently on room air
Aspiration precautions
Incentive spirometry encouraged
Head of bed elevation
Monitor hypertension
Antihypertensives as needed
Resume home meds
Continue to follow MSAS
Seizure precautions continue
Alcohol withdrawal treatment protocol will continue
Supplements glucose and thiamine to prevent Wernicke's encephalopathy
Supplement multivitamins and folate
Replete deficiencies and glucose, potassium, magnesium and phosphorus
Benzodiazepines as needed-diazepam or lorazepam
Precedex drip if needed-has not needed
If refractory DTs then would consider Phenobarbital 130-260 mg IV every 20 minutes
Follow LFTs on occasion
Abdominal ultrasound-05/30/2024-hepatomegaly with diffuse fatty liver, no focal hepatic lesions, pancreatic tail not well-visualized
Replace electrolytes including potassium and magnesium
Alcohol cessation counseling
Consider psychiatry evaluation
Consider rehabilitation-he was recently at a rehab 2 months ago
DVT prophylaxis-on Lovenox
Begin nutrition
Increase activity
Patient without seizures and requiring minimal Ativan-could be transferred out of ICU-call pulmonary if respiratory issues arise
Outpatient sleep disordered breathing/sleep apnea [id number] was advised to follow-up which he never did she was instructed to follow-up again
Reviewed the patient's pertinent medical records including radiographs, microbiology, laboratory evaluations, and discussion with primary team, consultants, pharmacy, nutrition, physical therapy, case management, charge nurse, critical care
nursing, and respiratory therapy.
Diagnostic data:
CT chest 05/16/2023-no evidence for central pulmonary embolism, marked diffuse fatty infiltration of liver
CT head 03/07/2024-no focal or acute intracranial abnormalities
Chest x-ray 05/30/2024-lungs clear, mild cardiomegaly
Subjective Dataa
Subjective Data
Date of Service:
Date of Service: May 31, 2024
Chief Complaint: Hydraulic Press Servicer Follow Up and Pulmonary Follow Up
Subjective:
No seizure activity overnight, did not receive Ativan, some insomnia, no complaints of shortness of breath, chest pain or abdominal pain
Review of Systems
General: Other (Per HPI)
Objective Data
Data Reviewed
Vital Signs / I&O / Oxygen:
Vital Signs
Temp Pulse Resp BP Pulse Ox
98.5 F 78 27 131/104 98
05/30/24 20:45 05/31/24 01:00 05/31/24 01:00 05/31/24 01:00 05/31/24 01:00
Intake and Output
05/30/24 05/31/24 06/01/24
06:59 06:59 06:59
Intake Total 4560 / 4560
Output Total 1300 / 1300
Balance 3260 / 3260
SaO2 98
Physical Exam
General: Respiratory Distress (n), Comfortable and Other (Thick neck)
HEENT: Normocephalic, Anicteric and Moist Mucous Membranes
Cardiovascular: Regular Rhythm (Tachycardia)
Respiratory: Clear, Wheeze (n), Crackles (n), Rhonchi (n), Non-Labored Respirations, Accessory Resp Muscle Use (n) and Stridor (n)
GI: Soft, Non Distended and Non Tender
Neurology: Awake, Alert and No Motor Deficits
Skin: Warm, Good Color, Cyanosis (n), Jaundice (n) and Rash (n)
Labs/Micro/Reports
Lab Data
05/31/24 03:41
Laboratory Results
05/30/24
14:27
PT 13.7
INR 1.07
APTT 26.2
[2024-05-31 07:09] LABS: Blood Urea Nitrogen 8 mg/dl (9-20); Calcium 8.5 mg/dl (8.4-10.2); Carbon Dioxide 20 mmol/L (22-30); Chloride 98 mmol/L (98-107); Estimated Creatinine Clearance > 125 ml/min; Glucose 70 mg/dl (70-99); Magnesium 1.5 mg/dl (1.6-2.3); Potassium 3.4 mmol/L (3.5-5.1); Sodium 134 mmol/L (135-145); eGFR > 60.00
[2024-05-31] MEDS: ZINC 50 MG PO (08:05)
[2024-05-31] MEDS: COREG 6.25 MG PO ×2 (08:06→20:34)
[2024-05-31] MEDS: KEPPRA 500 MG PO ×2 (08:06→20:37)
[2024-05-31] MEDS: FOLVITE 1 MG PO (08:07)
[2024-05-31] MEDS: ZESTRIL 2.5 MG PO (08:07)
[2024-05-31] MEDS: THIAMINE INJECTION 200 MG IV (08:07)
[2024-05-31] MEDS: ATIVAN 1 MG IV (08:07)
[2024-05-31] MEDS: NSS (PRESERVATIVE FREE) 0.5 ML IV (08:07)
[2024-05-31] MEDS: MAGNESIUM OXIDE 500 MG PO ×2 (08:08→08:27)
[2024-05-31] MEDS: KCL 40 MEQ PO (08:27)
--- NOTE | 2024-05-31 10:12 | W.PN.HOSP.TC ---
Today's Communication/Plan
-
Replete potassium and magnesium, monitor labs
Continue alcohol withdrawal protocol
Possible downgrade to telemetry
Assessment / Plan
Assessment / Plan
#Alcohol withdrawal seizures
#Alcohol abuse
-Extensive history of alcohol related seizures, on Keppra regimen outpatient
-Was sober for a mild though resumed drinking a month ago, was taking Keppra once daily as he was almost out
-Last drink was a couple of days prior to coming into the hospital; no requirement for phenobarbital here
-Was resumed on Keppra regimen, started on alcohol withdrawal protocol with improvement
-Low CIWA this morning, does have some tachycardia and dilated pupils
-Will continue with current withdrawal protocol, daily thiamine and folate
-Encourage absolute alcohol cessation
-neurology following
#Elevated LFTs
-Suspicion is this is alcohol related hepatic steatosis, no imaging available per chart
-Presented with transaminases in the 200-300 range with alcohol-induced pattern, T. bili 2.5 consistent with previous lab
-Will order RUQ ultrasound to assess
-Trend daily LFTs
#Thrombocytopenia
-Suspect this may be related to liver disease, possible early portal hypertension and TPO deficit
-Previous platelet counts were in the low 100s, have been near 90 while here. No signs of bleeding.
-Will continue to monitor CBC and clinically for bleeding symptoms
#Electrolyte deficiency
-Presented with hypomagnesemia and hypokalemia, with mag 0.9
-In the context of poor oral intake, nausea and vomiting, chronic alcoholism
-Status post repletion of Mg sulfate 4 g in the ED, and 40 mEq KCl
-Will continue to monitor BMP and magnesium closely, replete as needed
#High anion gap metabolic acidosis
-Likely component of lactic acidosis following seizure, intravascular depletion
-Resolved with IV fluids
#Hypertension -- systolic and diastolic
-No known history of hypertensive cardiovascular disease, likely related to withdrawal
-Home medications include carvedilol 6.25 mg twice daily, lisinopril 2.5 mg daily
-Will continue with home regimen, hydralazine as needed
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
-States has had multiple surgeries in the past, has screws and hardware in the left hip
#Suspected sleep apnea
-Obese habitus, noted to have abnormal sleep respiratory status
-Will provide information for pulmonology for outpatient sleep
DVT prophylaxis: Lovenox
Diet: Regular
CODE STATUS: Full code
Anticipated Discharge: 24 - 48 hours
Subjective/Interval History
-
Date of Service: May 31, 2024
Seen and examined at the bedside. No acute events overnight. AFVSS this morning though slightly tachycardic with regular rhythm
Labs this morning showed low potassium and magnesium, both repleted. Minimal Ativan requirements
He denies any acute complaints. Denies chest pain, shortness of breath, palpitations, fevers or chills, GI upset, urinary issues, abnormal bleeding or bruising, paresthesias or weakness.
Objective Data
-
Labs:
Laboratory Results
05/31/24 05/31/24
03:41 06:39
WBC 5.5
Hgb 13.6
Hct 36.9 L
Plt Count 94 L
Sodium Cancelled 134 L
Potassium Cancelled 3.4 L
Chloride Cancelled 98
Carbon Dioxide Cancelled 20 L
BUN Cancelled 8 L
Creatinine Cancelled 0.7
Glucose Cancelled 70
Calcium Cancelled 8.5
Vital Signs:
Vital Signs
Temp Pulse Resp BP Pulse Ox
98.5 F 93 31 144/100 95
05/31/24 05:40 05/31/24 09:00 05/31/24 09:00 05/31/24 09:00 05/31/24 09:00
I&O
05/30/24 05/31/24 06/01/24
06:59 06:59 06:59
Intake Total 4560 / 4660 640 / 640
Output Total 1300 / 1300
Balance 3260 / 3360 640 / 640
Review of Systems
-
History Source: Patient
All other systems: Reviewed and negative
Physical Exam
-
General: Well Nourished, No Apparent Distress, Comfortable and Conversant
HEENT: Normocephalic, Atraumatic, Moist Mucous Membranes and Anicteric
Respiratory: Clear to Auscultation and Non Labored Respirations; Negative Wheezes, Rales or Rhonchi
Cardiac: Regular Rhythm, S1/S2 and Tachycardic; Negative Murmur, Rub or Gallop
GI: Soft, Nontender, Nondistended and Normal Bowel Sounds
Musculoskeletal: No Clubbing, No Cyanosis and No Edema
Skin: Warm, Dry and Normal Turgor; Negative Rash or Jaundice
Neuro: AO x 3, Nonfocal/Grossly Intact and Central Nerve's Intact
Data Reviewed
-
Labs: Labs Reviewed by me and Discussed with Patient
--- NOTE | 2024-05-31 10:20 | PTCARENOTE ---
Rec'd care of patient at 0700. Patient standing at bedside upon entering room. AAOx3. Slightly fidgety and restless. +Tremors. MSAS 8 at 0800. Ativan administered per protocol. Upon reassessment, tremors gone and patient resting comfortably in bed.
NSR-ST on tele monitor. Rate in the 70-80's at rest. Increased to 110's with exertion. Lung sounds cta. Pulse ox 95-97% on RA. +BS. Tolerating regular diet. Ambulatory to bathroom for BM and voiding needs. IVFs infusing through left hand INT. VSS.
BP elevated prior to am medications; currently down to 149/94. Possible downgrade today per Hospitalist.
--- NOTE | 2024-05-31 10:41 | CM ---
CM reviewed medical records. CM met with patient and his girlfriend in room. Patient confirmed demographics. Patient has no history of VN. Pateint has multiple left hip surgeries at [facility]. At that time, he did physical therapy at [facility] and another
outpatient PT facility. Patient does not have any DME in the home. Patient is active with his PCP. Patient uses [facility] on [address].
CM offered a [facility] consult. Patient declined. CM advised patient that CM would be available if he changed his mind. CM will continue to follow.
--- NOTE | 2024-05-31 12:07 | PTCARENOTE ---
No changes. MSAS 0-1. VSS.
--- NOTE | 2024-05-31 13:44 | PTCARENOTE ---
Patient downgraded to telemetry.
[2024-05-31] MEDS: ATIVAN 1 MG PO ×2 (16:06→20:44)
--- NOTE | 2024-05-31 17:13 | PTCARENOTE ---
Patient placed on tele pack. Ambulating in room ad carlos manuel. No complaints.
[2024-05-31] MEDS: KLOR-CON 40 MEQ PO (20:34)
--- NOTE | 2024-05-31 22:09 | PTCARENOTE ---
Patient received OOB and walking around the room. Sinus rhythm to sinus tachy on the monitor. Patient is AAOx4 and agitated. MSAS 6. The patient asked why he was not discharged home and would like to remove his IV. Discussed with the patient need
for IV and providers wanting him to stay for at least 24 hrs for observation. BP 174/107. Temp 98.2 F. Scheduled medication administered. Clear breath sounds. Audible bowel sounds. Ativan administered per protocol. Report called to TREMAINE lo for
transfer to [facility].
2129- Patient transported to room [facility] with tele monitor. The patient declined wheelchair stating 'I'm not sitting on that thing.' Travelled with wheelchair besides the patient for safety reasons. Pt's gait steady. The patient was becoming more
restless, and agitated. Pt states that he does not want to be in the hospital any longer. Updated [place] PENALOZA on the unit. Pt's S/O at the bedside.
[2024-05-31] MEDS: APRESOLINE 5 MG IV (22:52)
--- NOTE | 2024-05-31 23:16 | PTCARENOTE ---
Pt. transferred from ICU to [facility] room 336-1. Pt. AAOx3 and able to make needs known. BP 170/124. LEE Dan notified. New order for IV hydralazine. See MAR for administration. Oriented to unit. Call ambriz within reach. Plan of care
ongoing.
[2024-06-01] VITALS (8 sets, daily range): BP systolic 151–186; BP diastolic 109–129
[2024-06-01] MEDS: ATIVAN 1 MG PO (00:02)
[2024-06-01] MEDS: ATIVAN 1 MG IV (02:10)
[2024-06-01] MEDS: NSS (PRESERVATIVE FREE) 0.5 ML IV (02:12)
--- NOTE | 2024-06-01 02:19 | PTCARENOTE ---
Pt. came out to hallway around 01:55 with c/o being cold. Patient noted with tremors, sweating through shirt. HR 110's on tele. Patient agitated, demanding to go home. MSAS 11. Patient refusing ativan. LEE Dan notified. Patient
refusing to go back to room stating 'I'm getting out of here. What year is it?' Patient walking around hallways looking in other rooms, still refusing to go back into room. LEE Harden came to the floor to talk with patient. Patient agreeable to take
ativan. Linens changed on bed. Patient requesting to 'throw away' tele monitor. This RN educated patient on the importance of wearing the tele monitor. Patient stated 'I'm not the doctors puppet, I can do what I want.' Patient got into bed. Plan of
care ongoing.
--- NOTE | 2024-06-01 02:34 | W.PN.UPDATE ---
Update Note
Progress Note Update
Patient with active withdrawal symptoms, standing in the hallway with tremors, diaphoretic, unsteady, and asking to leave AMA. MSAS is 11. Explained to the patient as he unstable with active withdrawal symptoms will not be safe to leave the
hospital. Discussed the case with the methods analyst, will start phenobarbital and transfer the patient to ICU.
--- NOTE | 2024-06-01 03:10 | PTCARENOTE ---
Report given to Devorah in ICU. Patient transferred via w/c to ICU room 3362.
--- NOTE | 2024-06-01 03:16 | PTCARENOTE ---
Received pt to ICU room 3362 via wheelchair at 0255, pt transferring/upgrading from 3 [place]. Pt is AAO x4, initial MSAS upon arrival to floor = 4. Telemetry pack placed on patient since he ambulates around the room. Pt cooperative with care but is
somewhat restless (bouncing his knee up and down, etc) and verbalizing that he wants to go home. However, pt is willing to stay until the morning. Updated pt on plan of care, awaiting loading dose of Phenobarbital from pharmacy.
[2024-06-01] MEDS: PHENOBARBITAL 104 MG IV (03:32)
--- NOTE | 2024-06-01 05:48 | PTCARENOTE ---
Pt ambulatory in room. Pleasant and cooperative with care although keeps repeating that he wants to leave. Is agreeable to staying at this time d/t needing FMLA paperwork filled out. AM labs obtained. L hand IV leaking under dressing, attempted to
troubleshoot/save IV line but unsuccessful, IV removed, pt currently refusing to have another line placed.
[2024-06-01 05:59] LABS: % Eosinophils 1.2 % (0-6); % Immature Granulocytes 0.7 % (0-0.5); % Lymphocytes 22.1 % (20.5-51.1); % Monocytes 15.1 % (1.7-9.3); % Neutrophils 59.9 % (42.2-75.2); Absolute Basophils 0.1 10^3/uL (0-0.2); Absolute Eosinophils 0.1 10^3/uL (0-0.7); Absolute Lymphocytes 1.3 10^3/uL (1.2-3.4); Absolute Monocytes 0.9 10^3/uL (0.1-0.6); Absolute Neutrophils 3.6 10^3/uL (1.4-6.5); Hematocrit 41.2 % (39.0-52.0); Hemoglobin 14.9 g/dL (13.0-18.0); Mean Corp Hgb Conc. 36.2 g/dL (33.0-37.0); Mean Corpuscular Hgb 33.6 pg (27.0-31.0); Mean Platelet Volume 10.5 fL (7.4-10.4); Nucleated Red Blood Cells % 0 % (-); Platelet Count 136 10^3/uL (130-400); Red Blood Cell Count 4.43 10^6/uL (4.70-6.10); Red Cell Dist. Width 12.8 % (11.5-14.5)
[2024-06-01 06:05] LABS: ALT (SGPT) 129 U/L (0-50); AST (SGOT) 152 U/L (17-59); Albumin 3.7 g/dl (3.5-5.0); Alkaline Phosphatase 96 U/L (38-126); Blood Urea Nitrogen 12 mg/dl (9-20); Calcium 9.5 mg/dl (8.4-10.2); Carbon Dioxide 25 mmol/L (22-30); Chloride 100 mmol/L (98-107); Direct Bilirubin 0.5 mg/dl (0.0-0.4); Estimated Creatinine Clearance > 125 ml/min; Glucose 88 mg/dl (70-99); Magnesium 1.4 mg/dl (1.6-2.3); Potassium 4.4 mmol/L (3.5-5.1); Sodium 136 mmol/L (135-145); Total Bilirubin 1.3 mg/dl (0.2-1.3); eGFR > 60.00
[2024-06-01] MEDS: MAGNESIUM OXIDE 500 MG PO ×2 (06:23→08:12)
--- NOTE | 2024-06-01 07:26 | W.PN.INTV ---
Today's Communication / Plan
Recommendations
Patient anxious and requesting discharge
Follow and [facility]
Ativan if needed
Consider psychiatry consult for anxiety/insomnia
Phenobarbital initiated
Neurology evaluation
Appears relatively stable not requiring benzodiazepines-transfer out of ICU-call pulmonary if respiratory issues arise
Assessment
-
[id number] male alcoholic with history of DTs and seizures with withdrawal, hypertension who presented with alcohol withdrawal seizure-finance insurance manager consulted for seizures/alcohol withdrawal/critical care management 05/30/2024.
Alcohol withdrawal seizures
Elevated LFTs
Hypokalemia
Hypomagnesemia
Metabolic acidosis with anion gap
Hypertension
Conditions present prior to admission:
Hospitalization/-alcohol use disorder and hypertension
Recent hospitalization and discharged 03/09/2024-alcohol withdrawal seizures, alcohol hepatitis, hypomagnesemia, hypertension and tongue laceration due to seizure in addition to obesity
Alcohol use disorder.
Alcohol withdrawal seizures.
History of seizures-on Keppra
History of thrombocytopenia
Hypertension.
GERD.
Fatty liver
Obstructive sleep apnea suspected
Left hip surgery x 3.
Plan
Patient transferred back last night because of potential withdrawal-[facility] 11 and started on phenobarbital
Patient has improved hemodynamically-not requiring Ativan
Supplemental oxygen as needed-currently on room air
Aspiration precautions
Incentive spirometry encouraged
Head of bed elevation per protocol
Monitor hypertension
Antihypertensives as needed
Resumed home antihypertensives
Follow MSAS
Seizure precautions continue
Alcohol withdrawal treatment protocol will continue
Supplements glucose and thiamine to prevent Wernicke's encephalopathy
Supplement multivitamins and folate
Replete deficiencies and glucose, potassium, magnesium and phosphorus
Benzodiazepines as needed-diazepam or lorazepam
Precedex drip if needed-has not needed
If refractory DTs then would consider Phenobarbital 130-260 mg IV every 20 minutes
Neurology evaluation ongoing-correspondence reviewed
Follow LFTs on occasion
Abdominal ultrasound-05/30/2024-hepatomegaly with diffuse fatty liver, no focal hepatic lesions, pancreatic tail not well-visualized
Replace electrolytes including potassium and magnesium
Alcohol cessation counseling ongoing
Consider psychiatry evaluation
Consider rehabilitation-he was recently at a rehab 2 months ago
DVT prophylaxis-on Lovenox
Begin nutrition
Increase activity
Patient without seizures and not requiring Ativan-could be transferred out of ICU-call pulmonary if respiratory issues arise
Outpatient sleep disordered breathing/sleep apnea [id number] was advised to follow-up which he never did she was instructed to follow-up again
Reviewed the patient's pertinent medical records including radiographs, microbiology, laboratory evaluations, and discussion with primary team, consultants, pharmacy, nutrition, physical therapy, case management, charge nurse, critical care
nursing, and respiratory therapy.
Diagnostic data:
CT chest 05/16/2023-no evidence for central pulmonary embolism, marked diffuse fatty infiltration of liver
CT head 03/07/2024-no focal or acute intracranial abnormalities
Chest x-ray 05/30/2024-lungs clear, mild cardiomegaly
Subjective Dataa
Subjective Data
Date of Service:
Date of Service: June 01, 2024
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
Subjective:
Patient was transferred back to the ICU for potential withdrawal, currently mildly anxious and wants to be discharged, no complaints of shortness of breath, chest pain or abdominal pain
Review of Systems
General: Other ( Per HPI)
Objective Data
Data Reviewed
Vital Signs / I&O / Oxygen:
Vital Signs
Temp Pulse Resp BP Pulse Ox
99.5 F 85 20 155/109 99
06/01/24 07:00 06/01/24 05:00 05/31/24 21:32 06/01/24 03:01 06/01/24 03:15
Intake and Output
05/31/24 06/01/24 06/02/24
06:59 06:59 06:59
Intake Total 4560 / 4660 1823
Output Total 1300 / 1300
Balance 3260 / 3360 1823
SaO2 99
Physical Exam
General: Respiratory Distress (n), Comfortable and Other (Thick neck)
HEENT: Normocephalic, Anicteric and Moist Mucous Membranes
Cardiovascular: Regular Rhythm (Tachycardia)
Respiratory: Clear, Wheeze (n), Crackles (n), Rhonchi (n), Non-Labored Respirations, Accessory Resp Muscle Use (n) and Stridor (n)
GI: Soft, Non Distended and Non Tender
Neurology: Awake, Alert and No Motor Deficits
Skin: Warm, Good Color, Cyanosis (n), Jaundice (n) and Rash (n)
Labs/Micro/Reports
Lab Data
06/01/24 05:37
06/01/24 05:37
[2024-06-01] MEDS: THIAMINE INJECTION IV (08:08)
[2024-06-01] MEDS: KEPPRA 500 MG PO (08:12)
[2024-06-01] MEDS: COREG 6.25 MG PO (08:12)
[2024-06-01] MEDS: ZESTRIL 2.5 MG PO (08:12)
[2024-06-01] MEDS: FOLVITE 1 MG PO (08:12)
[2024-06-01] MEDS: ZINC 50 MG PO (08:12)
--- NOTE | 2024-06-01 08:27 | CON.NEURO4 ---
Consultation - Neurology 4
-
CONSULTING PHYSICIAN: Dhaval Morgan MD
REFERRING PHYSICIAN: Hospitalist
DICTATED BY: Dhaval Morgan MD
DATE/TIME OF REQUEST: 05/30/2024
DATE/TIME OF CONSULTATION: 05/31/2024 0900
Reason for Consultation: Seizure
History of Present Illness:
This is a 23 year old right) handed male who was admitted to the hospital with (chief complaint) of Seizure. He gives a history of chronic alcohol abuse over the last 5 years, GERD who has had multiple hospitalizations over the last year for
alcohol withdrawal with seizures. Patient was recently hospitalized in February for similar complaint and was strongly advised to enter Alcohol Rehab
He stopped drinking on discharge and refrained for 9 weeks in March but resumed drinking in May week ago Patient had a witnessed seizure contacted EMS services. Seizure resolved without postictal effects prior to EMS arrival.
States his last drink was a couple of nights ago. Is on chronic antiepileptic regimen as well as magnesium supplementation which he states he is compliant with. He also has a history of chronically elevated LFTs.
Upon arrival to the ED he was hypertensive and tachycardic though otherwise stable and on room air without fever. Initial Labs showed sodium 133, potassium 3.1, bicarb 13, magnesium 0.9, T. bili 2.5, AST 304, ALT 157, albumin 3.8 with normal ALP.
Initial CIWA score was 9. Was given 2 mg of Ativan and 4 g of magnesium sulfate.
Upon speaking with the patient he was calm, had no acute complaints. He states that he was compliant with his Keppra 500mg though recently decreased it only once daily in the morning as he was running low. States that he was standing next to his
bed yesterday evening when he had his seizure even
Patient was started on IV Keppra. He was admitted to ICU for further management severe alcohol withdrawal with associate seizure disorder, electrolyte abnormalities and, lactic acidosis.
This morning patient is awake alert and oriented and had no further. With no motor or sensory deficits. He did bite his tongue
Past Medical History: Alcohol abuse, GERD, Alcoholic hepatitis
Surgical History: Hip repair
Family History: NC
Social History: Single alcoholism
Allergies: None
Home Medications:
Review of Symptoms:
Patient denies any fever, headache, chest pain, shortness of breath, GI or symptoms.
�Per the HPI.�All systems are reviewed negative except above.
�
Vital Signs:
The patient has a
Physical Exam:
The patient is afebrile, heart sounds S1 and S2 are (regular / irregular), and chest is clear to auscultation bilaterally.
- If not clear, describe.
Neurologic Examination:
The patient is awake, confused and oriented x person place month/year. (He is able to follow commands and answer questions appropriately. Speech is fluent There is no aphasia or dysarthria.
On cranial nerve assessment, pupils are 3-4 mm bilateral, round and reactive to light and accommodation. Visual marina are full. Extraocular movements are intact.
Facial sensations are intact and bilaterally symmetrical, there is no facial asymmetry. Hearing is intact bilaterally to normal conversation volume. Tongue palate and uvula are midline. Sternocleidomastoid strengths are full bilaterally.
Motor strengths are 5/5 bilateral upper and lower extremities on medical research Cecilton scale. There is no drift or involuntary movement noted.
Deep tendon reflexes are + bilateral upper and lower extremities and Babinski is absent bilaterally. Sensations of pain, touch, temperature and vibration are intact and bilaterally symmetrical. There was no extinction noted on double simultaneous
stimulation. Coordination is intact by finger to nose bilaterally.
Rombergs + Gait unsteady
Lab Results: Addendum
Neuro Imaging: CT head
Impression:
(Mr. SOO BURNS is a 23 year old M who has presented to the hospital with (symptoms/chief complaint) of seizures secondary to alcohol withdrawal.
Differentials for the patient's presentation include:
1. Alcohol Withdrawal
2. Wernicke syndrome
Recommendations:
1. Thiamin 200 mg daily
2. Ativan 1-2 q hourly prn
3. Keppra 500mg IV q 12
4. Phenobarb 15- 30mg daily
5. Seizure/fall precautions
Discussed patient care with: Hospitalist
--- NOTE | 2024-06-01 10:11 | W.PN.HOSP.TC ---
Today's Communication/Plan
-
Discharge planning
Encourage alcohol cessation
Follow-up with PCP and neurologist
Assessment / Plan
Assessment / Plan
#Alcohol withdrawal seizures
#Alcohol abuse
-Extensive history of alcohol related seizures, on Keppra regimen outpatient
-Was sober for a mild though resumed drinking a month ago, was taking Keppra once daily as he was almost out
-Last drink was a couple of days prior to coming into the hospital; no requirement for phenobarbital here
-Was resumed on Keppra regimen, started on alcohol withdrawal protocol with improvement
-Low CIWA this morning, does have some tachycardia and dilated pupils
-Will continue with current withdrawal protocol, daily thiamine and folate
-Encourage absolute alcohol cessation
-neurology following
#Hepatic steatosis
-Suspicion is this is alcohol related hepatic steatosis, no imaging available per chart
-Presented with transaminases in the 200-300 range with alcohol-induced pattern, T. bili 2.5 consistent with previous lab
-RUQ ultrasound here did not show diffuse hepatic fatty infiltration, no cirrhotic morphology
-Trend daily LFTs
#Thrombocytopenia
-Suspect this may be related to liver disease, possible early portal hypertension and TPO deficit
-Previous platelet counts were in the low 100s, have been near 90 while here. No signs of bleeding.
-Will continue to monitor CBC and clinically for bleeding symptoms
#Electrolyte deficiency
-Presented with hypomagnesemia and hypokalemia, with mag 0.9
-In the context of poor oral intake, nausea and vomiting, chronic alcoholism
-Potassium is normalized, magnesium now WNL
#High anion gap metabolic acidosis
-Likely component of lactic acidosis following seizure, intravascular depletion
-Resolved with IV fluids
#Hypertension -- systolic and diastolic
-No known history of hypertensive cardiovascular disease, likely related to withdrawal
-Home medications include carvedilol 6.25 mg twice daily, lisinopril 2.5 mg daily
-Will continue with home regimen, hydralazine as needed
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
-States has had multiple surgeries in the past, has screws and hardware in the left hip
#Suspected sleep apnea
-Obese habitus, noted to have abnormal sleep respiratory status
-Will provide information for pulmonology for outpatient sleep
DVT prophylaxis: Lovenox
Diet: Regular
CODE STATUS: Full code
Anticipated Discharge: Today
Subjective/Interval History
-
Date of Service: June 01, 2024
Seen and examined at the bedside. Overnight he was transferred down to the floor, was interpreted as being tremulous and started on phenobarbital. Per nursing, suspect that this may have been given prematurely as he was subsequently transferred
back to ICU without any notable symptoms. AFVSS this morning.
He is currently in street clothes with his girlfriend at the bedside. Questioning if he can leave the hospital today and requesting work note.
He denies any acute complaints including chest pain, shortness of breath, fevers or chills, nausea, vomiting, diarrhea, tremulousness, lightheadedness, hallucinations, urinary issues, paresthesias or weakness, bleeding or bruising.
CIWA this morning < 3.
Objective Data
-
Labs:
Laboratory Results
06/01/24
05:37
WBC 6.0
Hgb 14.9
Hct 41.2
Plt Count 136 D
Sodium 136
Potassium 4.4 D
Chloride 100
Carbon Dioxide 25
BUN 12
Creatinine 0.7
Glucose 88
Calcium 9.5
Total Bilirubin 1.3
AST 152 H
ALT 129 H
Alkaline Phosphatase 96
Vital Signs:
Vital Signs
Temp Pulse Resp BP Pulse Ox
99.5 F 85 20 155/109 99
06/01/24 07:00 06/01/24 05:00 05/31/24 21:32 06/01/24 03:01 06/01/24 03:15
I&O
05/31/24 06/01/24 06/02/24
06:59 06:59 06:59
Intake Total 4560 / 4660 1823 / 1823 250 / 250
Output Total 1300 / 1300
Balance 3260 / 3360 1823 / 1823 250 / 250
Review of Systems
-
History Source: Patient
All other systems: Reviewed and negative
Physical Exam
-
General: Well Nourished, No Apparent Distress and Comfortable
HEENT: Normocephalic, Atraumatic and Moist Mucous Membranes
Respiratory: Clear to Auscultation and Non Labored Respirations
Cardiac: Regular Rhythm and S1/S2; Negative Murmur, Rub or Gallop
GI: Soft, Nontender, Nondistended and Normal Bowel Sounds
Musculoskeletal: No Clubbing, No Cyanosis and No Edema
Skin: Warm and Dry; Negative Rash
Neuro: AO x 3, Nonfocal/Grossly Intact, Central Nerve's Intact and Other (Mild pupil dilation, PERRL)
Psych: Calm
Data Reviewed
-
Labs: Labs Reviewed by me and Discussed with Patient
--- NOTE | 2024-06-01 11:52 | CM ---
Addendum entered by Shima Huertas RN 06/01/24 13:27:
LIMA reviewed medical records. Plan for discharge to home today.
PLAN: home no needs.
Original Note:
CM reviewed medical records. Possible plan for discharge. CM will remains available as needed.
--- NOTE | 2024-06-01 12:58 | W.DCSUMMARY ---
Discharge Summary
Discharge Data
Date of Admission: 05/30/24
Date of Discharge: 06/01/24
-
Pending Results: No
Hospital Course
23-year-old male with alcohol abuse C/B withdrawal seizures and DT, hepatic steatosis that presented to the ED with a recurrent alcohol withdrawal seizure. States that he stopped drinking 2 to 3 days prior to coming in. Also ran low on Keppra so
he began taking it only once daily. Had multiple electrolyte deficiencies upon arrival, high anion gap anabolic acidosis. Metabolic status improved with IV fluids and electrolyte repletion. Was placed onto alcohol withdrawal protocol with as
needed benzodiazepines. Was down ICU to telemetry on 05/31/2024, overnight nurse on telemetry believe the patient was tremulous and he was given phenobarbital. Minimal symptoms immediately after, suspect he was not having breakthrough withdrawal,
possible overzealous administration of phenobarbital. Spoke with video games storywriter and neurologist on morning of 06/01. As he was not having significant withdrawal symptoms, hemodynamically stable it was deemed safe for patient to be discharged. He
requested discharge on this day as well.
Increased his chronic magnesium supplementation to 1 g daily. Ordered refill for his Keppra, advised him to obtain refill from neurologist or PCP when running low. Encouraged him to continue with thiamine and folate supplementation daily.
Encouraged absolute alcohol cessation at discharge.
Discharge Plan
-
Patient Disposition: Home (Routine Discharge)
Discharge Diagnosis/Procedures: Alcohol withdrawal seizures
Condition: Good
Diet: Other diet
Additional Diets: Avoid alcohol
Activity: As tolerated
Driving Restrictions: No driving for 24 hours
Bathing Restrictions: None
Blood Work: N/A
Others Tests: N/A
Activity Restrictions/Additional Instructions:
Follow-up in office with your primary care doctor and neurologist within a week after discharge from the hospital
Instructions: Alcohol withdrawal
Referrals:
Medardo Arreaga MD [Family Provider] -
Jose Chou MD [Active] - in two to four weeks (Obstructive sleep apnea suspected)
Additional Discharge Medication Instructions: Take folic acid and thiamine supplementation every day, once daily
Refill sent for Keppra 500 mg twice daily. You need to take this medication every day, if you are running low call your family doctor or neurologist for a refill. Do not start taking only once daily
Increased magnesium to 1 g daily
Prescriptions:
New
folic acid 1 mg Tablet
1 mg PO DAILY 30 Days Qty: 30 0RF
levetiracetam 500 mg Tablet
500 mg PO BID 30 Days Qty: 60 0RF
magnesium oxide 500 mg magnesium Tablet
1,000 mg PO DAILY 30 Days Qty: 60 0RF
thiamine HCl (vitamin B1) 250 mg tablet
250 mg PO DAILY 30 Days Qty: 30 0RF
Continued
carvedilol 6.25 mg Tablet
6.25 mg PO BID 30 Days Qty: 60 0RF
lisinopril 2.5 mg Tablet
2.5 mg PO DAILY 30 Days Qty: 30 0RF
zinc sulfate 50 mg zinc (220 mg) Tablet
50 mg PO DAILY
Discontinued
levetiracetam 500 mg Tablet
500 mg PO BID 30 Days Qty: 60 0RF
magnesium oxide 500 mg magnesium Tablet
500 mg PO DAILY 30 Days Qty: 30 0RF
Discharge Orders:
Discharge Patient (As Directed); Ordered 06/01/24
Ordered By: Medardo Gutierrez
Discharge Date and Time
Print Language: TRINIDADIAN
--- NOTE | 2024-06-01 13:29 | PTCARENOTE ---
Pt anxious all morning about early discharge. Pt frequently removing BP cuff and walking in hallways. No IV access present.
Reviewed all discharge instructions and meds with pt and girlfriend. Pt agreeable to f/u with PCP, pulm, and neurology. Encouraged pt to monitor BP at as as he reports having a automatic BP cuff. Pt d/c'd with all belongings from room, d/c
instructions and doctors note for work. Scripts sent electronically. Pharmacy verified with pt.
== END 2024-06-01 13:25 | disposition home or self-care (01) | DRG 897 ==
LOC: ICU 09:32
PROVIDERS: ADMITTING PHYSICIAN Internal Medicine; CONSULT PHYSICIAN Internal Medicine Critical Care Medicine; CONSULT PHYSICIAN Psychiatry & Neurology Neurology; EMERGENCY PHYSICIAN Emergency Medicine; FAMILY PHYSICIAN Family Medicine
DX: F10.239 Alcohol dependence with withdrawal, unspecified (principal); E87.20 Acidosis, unspecified; E51.2 Wernicke's encephalopathy; F10.229 Alcohol dependence with intoxication, unspecified; G40.909 Epilepsy, unspecified, not intractable, without status epilepticus; K76.0 Fatty (change of) liver, not elsewhere classified; D69.6 Thrombocytopenia, unspecified; I10 Essential (primary) hypertension; E66.9 Obesity, unspecified; Z68.31 Body mass index [BMI] 31.0-31.9, adult; E83.42 Hypomagnesemia; E87.6 Hypokalemia; G47.33 Obstructive sleep apnea (adult) (pediatric)
CPT/HCPCS: 71045; 76700; 80048; 80053; 80306; 80307; 82077; 82248; 83735; 85025; 85610; 85730; 93005; 96361; 96365; 96366; 96375; 99291